=== PATIENT | male | born 1970 | race Caucasian/White ===

== ENCOUNTER 2020-08-04 11:15 | Emergency (ER) | payer MEDICARE, MEDICAID, SELFPAY ==
[2020-08-04] VITALS (27 sets, daily range): BP systolic 124–144; BP diastolic 78–87; PULSE 70–91; RESP 9–22; TEMP 37; O2SAT 93–98
--- NOTE | 2020-08-04 11:15 | RT.EKG_ITS ---
APPROVED REPORT Exam: Resting ECG Patient Location: E HR:90 bpm ECG Measurements Heart Rate 90 AXIS UT 162 P 9 QRSd 85 QRS 67 QT 331 T 20 QTc 405 Conclusion Sinus rhythm...normal P axis, V-rate 60- 99 ? old4 anterolateral infarct...Q I aVL V3-V6,I,aVL
--- NOTE | 2020-08-04 11:30 | DI.RAD_ITS ---
EXAM: XR CHEST 2V PA LATERAL CLINICAL HISTORY: chest pain TECHNIQUE: 2D digital imaging was performed. COMPARISON: No exams were available for comparison FINDINGS: MEDIASTINUM: Normal. HEART: Normal. PULMONARY VASCULATURE: Normal. LUNGS: Clear. PLEURAL SPACE: No pleural effusion or pneumothorax. BONE:Within normal limits for the patient's age. OTHER FINDINGS:Normal. IMPRESSION: No acute pulmonary findings. DATA REPOSITORY: RADIATION DOSE DELIVERED:
--- NOTE | 2020-08-04 11:38 | NUR.NOTE ---
Nursing Note: medication list obtained from [facility] as well as instructions for use.
[2020-08-04 11:48] LABS: Abs Immature Grans 0.06 10^3/uL (0.0-0.06); Absolute Basophil Count 0.07 10^3/uL (0.0-0.2); Absolute Eosinophil Count 0.14 10^3/uL (0.0-0.7); Absolute Lymphocyte Count 1.64 10^3/uL (1.2-3.4); Absolute Monocyte Count 0.54 10^3/uL (0.1-0.8); Absolute Neutrophil Count 8.32 10^3/uL (1.2-6.7); Basophils % 0.6; Eosinophils % 1.3; HCT 41.2 % (40.0-50.0); HGB 14.4 g/dL (13.5-17.5); Immature Grans % 0.6; Lymphocytes % 15.2; MCV 91.6 fL (80-95); MPV 10.7 fL (8.0-11.0); Neutrophils % 77.3; Nucleated RBC 0 %; Platelet Count 250 10^3/uL (130-400); RDW 12.5 % (11.8-14.1); RDW-SD 41.4 fL; WBC 10.77 10^3/uL (4.4-10.8)
[2020-08-04 12:03] LABS: ALT 21 U/L (16-63); AST 21 U/L (15-37); Albumin 3.8 g/dL (3.4-5.0); Alkaline Phosphatase 84 U/L (46-116); Anion Gap 5.4 mmol/L (3-11); BUN 7 mg/dL (7-18); Bilirubin, Total 0.5 mg/dL (0.2-1.0); CO2 30.6 mmol/L (21.0-32.0); CREATININE 0.81 mg/dL (0.70-1.30); Calcium 9.2 mg/dL (8.5-10.1); Chloride 104 mmol/L (98-107); Glucose 100 mg/dL (74-106); PTT Activated 24.3 sec (21.0-27.5); Prothrombin Time 10.5 sec (9.3-11.0); Sodium 140 mmol/L (136-145); Total Protein 7.3 g/dL (6.4-8.2); Troponin I < 0.05 ng/mL (<0.06)
--- NOTE | 2020-08-04 12:16 | ED.GENADUL_ITS ---
Discharge Plan Disposition Patient Disposition: HOME Condition: Stable Discharge Details Clinical Impression: Chest pain, Palpitations Primary Care Provider: Unknown,Unknown ED Provider: Keegan Lewis Home Meds and New Rx's Prescriptions: Continued omeprazole 20 mg Tablet,Disintegrat, Delay Rel 20 mg PO DAILY RF: 0 citalopram 40 mg Tablet 40 mg PO DAILY RF: 0 simvastatin 10 mg Tablet 10 mg PO DAILY RF: 0 aspirin [Aspirin Low Dose] 81 mg Tablet,Delayed Release (Dr/Ec) 81 mg PO DAILY RF: 0 nitroglycerin 0.4 mg Tablet, Sublingual 0.4 mg sublingual PRN PRNRF: 0 metoprolol succinate 25 mg Tablet Extended Release 24 Hr 12.5 mg PO BID RF: 0 albuterol sulfate [Ventolin HFA] 90 mcg/actuation Hfa Aerosol Inhaler 2 puff INHALATION Q4H PRN PRNRF: 0 diltiazem HCl 120 mg Tablet Extended Release 24 Hr 120 mg PO DAILY RF: 0 Restasis 0.05 % [place] 1 drp ophthalmic (eye) BID RF: 0 budesonide-formoterol [Symbicort] 160-4.5 mcg/actuation Hfa Aerosol Inhaler 2 puff INHALATION BID RF: 0 Discharge Instructions Instructions: Chest Pain (ED), Heart Palpitations (ED) Additional Instructions: At this time your work-up here in the ER is unremarkable for obvious emergent process. You were offered admission to our facility but have declined. Please watch for new or worsening symptoms and return to the ER for any concerns. We have set you up with a Holter monitor to hopefully capture your palpitations and give further insight to your ongoing symptoms. I strongly recommend that you contact your circus agent later today or tomorrow for prompt outpatient reevaluation. Discharge Data Discharge Date/Time-TO BE ENTERED AT DEPARTURE: 08/04/20 16:05 Medical Decision Making 50-year-old gentleman who reports history of MO 4 or 5 years ago, normal stress test 3 years ago, past medical history which includes hypercholesteremia, hypertension, GERD, COPD, current everyday smoker, presents to the ER for a 1 week history of intermittent fast heart rate which then leads to pain in his left chest which then goes to his upper left back shoulder and down his arm. He states that the pain comes and goes when the heart rate is up, as high into the 150s, nothing really makes it worse or better. Spontaneously resolves. Patient is visiting here from [place], unsure how long he plans to stay, does have a cardiology team at [facility]. Patient reports that his heart rate does not feel give racing now and his pain is decreasing from an 8 down to a 4. He has taken nitro over the past week which she reports did not make any change in his symptoms. Clinically he appears well, nontoxic. Differential includes but not excluded to ACS, atrial fibrillation, SVT, PE, electrolyte abnormality, dehydration, infectious process, etc. Patient took a single baby aspirin today, will give 3 additional baby aspirin initiate cardiac work-up including a D- dimer. I did discuss the case with Dr. Banks Laboratory values here in the ER are unremarkable for any obvious emergent process. White count is unremarkable. D-dimer 269, electrolytes unremarkable. Renal function normal, magnesium 2.0, troponin less than 0.05. Initial EKG read by Dr. Banks, see his official report. Upon reevaluation patient reports that his pain has resolved completely, he is feeling better and would like to be discharged. I did explain to him that I thought at minimum we should obtain a repeat troponin and EKG at 3 hours but given his age, comorbidities, admission was offered, and declined. Patient is of sound mind and able to make his own decisions. He does promise me that he will reach out to his cardiology team. He is willing to await a 3-hour troponin and EKG. Repeat troponin less than 0.05. Repeat EKG performed at 1515, please see official report by Dr. Banks. Sinus rhythm, ventricular of 72. J-point elevation lateral leads. Discussed repeat troponin and EKG with patient. We once again discussed observation admission, he once again declined. We discussed options, he is willing to allow us to set him up with a 14-day Holter monitor. He was encouraged to watch for new or worsening symptoms and return immediately to the ER, otherwise reach out to his primary care provider and circus agent later today or tomorrow for prompt outpatient reevaluation. The patient reports pain is 0 out of 10. He is currently asymptomatic. Patient did remain on the satellite project site monitor while here in the ER and never did go into an arrhythmia, tachycardia, A. fib, etc. Imaging Data Radiologic Study: Attestation: I personally reviewed and interpreted this imaging study as follows: Imaging: X-Ray Radiologist's impression: Chest x-ray negative Lab Data Lab results reviewed: Yes I reviewed the patient's lab results. Labs: Laboratory Tests Range/Units 08/04/20 08/04/20 08/04/20 11:30 11:30 11:30 WBC (4.4-10.8) 10^3/uL 10.77 RBC (4.36-5.78) 10^6/uL 4.50 Hgb (13.5-17.5) g/dL 14.4 Hct (40.0-50.0) % 41.2 MCV (80-95) fL 91.6 MCH (27.0-33.0) pg 32.0 MCHC (32.0-36.0) % 35.0 RDW (11.8-14.1) % 12.5 Plt Count (130-400) 10^3/uL 250 MPV (8.0-11.0) fL 10.7 Immature Gran % 0.6 Neutrophils % 77.3 Lymphocytes % 15.2 Monocytes % 5.0 Eosinophils % 1.3 Basophils % 0.6 Nucleated RBC % % 0 Absolute Neutrophils (1.2-6.7) 10^3/uL 8.32 H Absolute Lymphocytes (1.2-3.4) 10^3/uL 1.64 Absolute Monocytes (0.1-0.8) 10^3/uL 0.54 Absolute Eosinophils (0.0-0.7) 10^3/uL 0.14 Absolute Basophils (0.0-0.2) 10^3/uL 0.07 PT (9.3-11.0) sec 10.5 INR (0.9-1.1) 1.0 APTT (21.0-27.5) sec 24.3 D-Dimer (<500) ng/mlFEU 269 Sodium (136-145) mmol/L 140 Potassium (3.5-5.1) mmol/L 4.0 Chloride (98-107) mmol/L 104 Carbon Dioxide (21.0-32.0) mmol/L 30.6 Anion Gap (3-11) mmol/L 5.4 BUN (7-18) mg/dL 7 Creatinine (0.70-1.30) mg/dL 0.81 Estimated GFR/1.73 m2 (mL/min/1.73m2) >= 60.00 Glucose (74-106) mg/dL 100 Calcium (8.5-10.1) mg/dL 9.2 Magnesium (1.8-2.4) mg/dL 2.0 Total Bilirubin (0.2-1.0) mg/dL 0.5 AST (15-37) U/L 21 ALT (16-63) U/L 21 Alkaline Phosphatase (46-116) U/L 84 Troponin I (<0.06) ng/mL < 0.05 Total Protein (6.4-8.2) g/dL 7.3 Albumin (3.4-5.0) g/dL 3.8 Range/Units 08/04/20 14:42 WBC (4.4-10.8) 10^3/uL RBC (4.36-5.78) 10^6/uL Hgb (13.5-17.5) g/dL Hct (40.0-50.0) % MCV (80-95) fL MCH (27.0-33.0) pg MCHC (32.0-36.0) % RDW (11.8-14.1) % Plt Count (130-400) 10^3/uL MPV (8.0-11.0) fL Immature Gran % Neutrophils % Lymphocytes % Monocytes % Eosinophils % Basophils % Nucleated RBC % % Absolute Neutrophils (1.2-6.7) 10^3/uL Absolute Lymphocytes (1.2-3.4) 10^3/uL Absolute Monocytes (0.1-0.8) 10^3/uL Absolute Eosinophils (0.0-0.7) 10^3/uL Absolute Basophils (0.0-0.2) 10^3/uL PT (9.3-11.0) sec INR (0.9-1.1) APTT (21.0-27.5) sec D-Dimer (<500) ng/mlFEU Sodium (136-145) mmol/L Potassium (3.5-5.1) mmol/L Chloride (98-107) mmol/L Carbon Dioxide (21.0-32.0) mmol/L Anion Gap (3-11) mmol/L BUN (7-18) mg/dL Creatinine (0.70-1.30) mg/dL Estimated GFR/1.73 m2 (mL/min/1.73m2) Glucose (74-106) mg/dL Calcium (8.5-10.1) mg/dL Magnesium (1.8-2.4) mg/dL Total Bilirubin (0.2-1.0) mg/dL AST (15-37) U/L ALT (16-63) U/L Alkaline Phosphatase (46-116) U/L Troponin I (<0.06) ng/mL < 0.05 Total Protein (6.4-8.2) g/dL Albumin (3.4-5.0) g/dL ECG Data Attestation: I personally reviewed and interpreted this ECG (s) as follows: Prior ECG tracings: not available for review Interpretation: Please see official report by Dr. Banks. Sinus rhythm, ventricular rate of 90. No STEMI. Question of old anterolateral infarct HPI General Mode of arrival: ambulatory . Date/Time Provider Initiated Documentation: 08/04/20 11:20 . Limitations to Documentation: no limitations . Information obtained by: patient . HPI Narrative: This is a 50-year-old gentleman, visiting from [place], with a past medical history that includes GERD, hypertension, paroxysmal A. fib, COPD, hyperlipidemia, current smoker, presenting to the ER for evaluation of his heart racing. Patient reports that for 1 week his heart has been racing intermittently, nothing really makes this worse or better. Once his heart begins to race he begins to have what he describes as left-sided chest discomfort that goes down his arm on the left side. The pain also goes up into his upper back-left shoulder. He states that his heart rate has been as high as 150 over the past week. He has taken his nitro x 3 without any relief of his symptoms. He states that when his heart stops racing he no longer has any discomfort. Earlier the pain and rapid heart rate began around 9 AM, states it has been fairly consistent since then but upon arrival his heart is not racing and his pain is decreasing. He reports that his pain at maximum 8 out of 10, now is currently a 4 out of 10. Denies any recent illness or travel. Patient is unsure of what medications he takes although he does state that he takes them all as directed. He states he had a heart attack roughly 4 or 5 years ago, catheterized at that time without stent placement. He does see a circus agent at [facility], last stress test was roughly 3 years ago and everything was fine. He denies headache, fever, neck pain, shortness of breath, cough, abdominal pain, nausea, vomiting, change in bowel or bladder function, numbness, tingling, weakness, skin rash, pain or swelling in his legs. Related Data Home Medications Medication Instructions Recorded Confirmed Restasis 1 drp OPHTHALMIC (EYE) BID 08/04/20 08/04/20 albuterol sulfate [Ventolin HFA] 2 puff INHALATION Q4H PRN PRN 08/04/20 08/04/20 aspirin [Aspirin Low Dose] 81 mg PO DAILY 08/04/20 08/04/20 budesonide-formoterol [Symbicort] 2 puff INHALATION BID 08/04/20 08/04/20 citalopram 40 mg PO DAILY 08/04/20 08/04/20 diltiazem HCl 120 mg PO DAILY 08/04/20 08/04/20 metoprolol succinate 12.5 mg PO BID 08/04/20 08/04/20 nitroglycerin 0.4 mg SUBLINGUAL PRN PRN 08/04/20 08/04/20 omeprazole 20 mg PO DAILY 08/04/20 08/04/20 simvastatin 10 mg PO DAILY 08/04/20 08/04/20 Allergies Allergy/AdvReac Type Severity Reaction Status Date / Time sulfamethoxazole Allergy Severe Anaphylaxsi Unverified 08/04/20 11:24 [From Bactrim] s trimethoprim [From Bactrim] Allergy Severe Anaphylaxsi Unverified 08/04/20 11:24 s General Stated Complaint: Chest Pain POLA: 2 Review of Systems Constitutional Constitutional: Denies fatigue, Denies fever(s) and Denies headache(s) Eyes Eyes: Denies change in vision ENT Ears, Nose, Mouth, and Throat: Denies headache(s) and Denies neck pain Cardiovascular Cardiovascular: Reports chest pain, Reports rapid heart rate and Denies dyspnea Respiratory Respiratory: Denies cough and Denies dyspnea Gastrointestinal Gastrointestinal: Denies abdominal pain, Denies nausea and Denies vomiting Musculoskeletal Musculoskeletal: Reports back pain, Denies neck pain, Denies numbness and Denies tingling Integumentary/Breasts Skin/Breast: Denies rash Neurologic Neurologic: Denies headache(s), Denies numbness and Denies tingling Endocrine Endocrine: Denies fatigue [facility] Social History Smoking/Tobacco Use Status: Current every day Smoking risk assessment performed?: Yes Alcohol Intake: never Substance use type: does not use Do you feel safe at home: Yes Do you feel safe in your relationship?: Yes Exam Const General: cooperative, healthy appearing, comfortable and no acute distress Orientation: alert, awake and oriented x3 [facility] Head: normal to inspection, normocephalic and atraumatic Face and sinus: normal facial exam Mouth: moist mucous membranes Eyes General: appearance normal, both eyes and all related structures Conjunctivae: conjunctivae normal Sclera: sclerae normal Neck Neck: normal visual inspection, full ROM, trachea midline and supple Resp Effort & Inspection: normal respiratory effort and able to speak in complete sentences Auscultation: clear to auscultation bilaterally Cardio Rate: regular rate Rhythm: regular rhythm GI Palpation: soft, not firm, no guarding, no pulsatile masses and nontender Back/Spine/Pelvis Back: No back tenderness Skin General skin exam: no rashes or lesions noted Neuro General: patient alert, patient awake, patient oriented x3, moves all extremities and no focal motor deficits Cognition: normal cognition Speech: speech normal Gait: normal gait Motor: muscle tone normal throughout Sensory Exam: no sensory deficits noted Extrem General: normal to inspection, full ROM, capillary refill normal, no pedal edema and no calf tenderness Psych Appearance: grossly normal Mental Status: mental status grossly normal Course Vital Signs Vital signs: Vital Signs Temperature 37.0 C 08/04/20 11:20 Pulse 91 H 08/04/20 11:20 Respiratory Rate 20 08/04/20 11:20 Blood Pressure 144/87 H 08/04/20 11:20 Pulse Oximetry 98 08/04/20 11:20 Temperature 37.0 C 08/04/20 11:20 Temperature Source Skin 08/04/20 11:20 Pulse 91 H 08/04/20 11:20 Respiratory Rate 20 08/04/20 11:20 Respiratory Effort Non-Labored 08/04/20 11:22 Blood Pressure 144/87 H 08/04/20 11:20 Blood Pressure Position Supine 08/04/20 11:20 Pulse Oximetry 98 08/04/20 11:20 Oxygen Delivery Method Room Air 08/04/20 11:20 Oxygen Flow Rate 0 08/04/20 11:20 Pain Level 7 08/04/20 11:20 Lab/Test Results Lab/Test Results: Laboratory Tests Range/Units 08/04/20 08/04/20 11:30 11:30 WBC (4.4-10.8) 10^3/uL 10.77 RBC (4.36-5.78) 10^6/uL 4.50 Hgb (13.5-17.5) g/dL 14.4 Hct (40.0-50.0) % 41.2 MCV (80-95) fL 91.6 MCH (27.0-33.0) pg 32.0 MCHC (32.0-36.0) % 35.0 RDW (11.8-14.1) % 12.5 Plt Count (130-400) 10^3/uL 250 MPV (8.0-11.0) fL 10.7 Immature Gran % 0.6 Neutrophils % 77.3 Lymphocytes % 15.2 Monocytes % 5.0 Eosinophils % 1.3 Basophils % 0.6 Nucleated RBC % % 0 Absolute Neutrophils (1.2-6.7) 10^3/uL 8.32 H Absolute Lymphocytes (1.2-3.4) 10^3/uL 1.64 Absolute Monocytes (0.1-0.8) 10^3/uL 0.54 Absolute Eosinophils (0.0-0.7) 10^3/uL 0.14 Absolute Basophils (0.0-0.2) 10^3/uL 0.07 Sodium (136-145) mmol/L 140 Potassium (3.5-5.1) mmol/L 4.0 Chloride (98-107) mmol/L 104 Carbon Dioxide (21.0-32.0) mmol/L 30.6 Anion Gap (3-11) mmol/L 5.4 BUN (7-18) mg/dL 7 Creatinine (0.70-1.30) mg/dL 0.81 Estimated GFR/1.73 m2 (mL/min/1.73m2) >= 60.00 Glucose (74-106) mg/dL 100 Calcium (8.5-10.1) mg/dL 9.2 Magnesium (1.8-2.4) mg/dL 2.0 Total Bilirubin (0.2-1.0) mg/dL 0.5 AST (15-37) U/L 21 ALT (16-63) U/L 21 Alkaline Phosphatase (46-116) U/L 84 Troponin I (<0.06) ng/mL < 0.05 Total Protein (6.4-8.2) g/dL 7.3 Albumin (3.4-5.0) g/dL 3.8
[2020-08-04 12:22] LABS: D-Dimer 269 ng/mlFEU (<500)
[2020-08-04] MEDS: Normal Saline 1,000 ML 1000 ML IV (12:50)
[2020-08-04] MEDS: Aspirin 81 MG CHEW 243 MG CH (12:51)
--- NOTE | 2020-08-04 14:45 | RT.EKG_ITS ---
APPROVED REPORT Exam: Resting ECG Patient Location: E HR:72 bpm ECG Measurements Heart Rate 72 AXIS MD 188 P 19 QRSd 87 QRS 60 QT 365 T 25 QTc 401 Conclusion Sinus rhythm, normal P axis, J point elevation lateral leads
[2020-08-04 15:04] LABS: Troponin I < 0.05 ng/mL (<0.06)
[2020-08-04] MEDS: Normal Saline Flush 10 ML SYR IVP (15:06)
--- NOTE | 2020-09-01 12:36 | ZIOP_ITS ---
Date of service: 09/01/20 Time of Service: 12:36 14 Day Head Refrigerating Engineer Referring Provider:: kylie Indications:: Palpitations Note: This is a 14-day monitor ordered for indication of palpitations. ?The patient was in normal sinus rhythm for the majority of the recording with an average heart rate of 83 bpm. Minimum heart rate was 83 bpm. ?There were no episodes of ventricular tachycardia. ?There were rare PACs and rare PVCs. There was one episode of supraventricular tachycardia which lasted a total of 4 beats. ?There were no episodes of atrial fibrillation, no pauses greater than 3 seconds and no evidence of high degree heart block. ?Patient triggered events were associated with sinus rhythm and occasional PVC.
== END 2020-08-04 16:05 | disposition home or self-care (01) ==
PROVIDERS: Emergency Provider Physician Assistant
DX: R00.2 Palpitations (principal); R07.9 Chest pain, unspecified; I48.0 Paroxysmal atrial fibrillation; Z53.29 Procedure and treatment not carried out because of patient's decision for other reasons; I10 Essential (primary) hypertension; J44.9 Chronic obstructive pulmonary disease, unspecified; F17.210 Nicotine dependence, cigarettes, uncomplicated; E78.00 Pure hypercholesterolemia, unspecified
CPT/HCPCS: 0296T; 36415; 80053; 93005; 96360; 96361; 99285; 71046; 83735; 84484; 85025; 85379; 85610; 85730; 93010

== ENCOUNTER 2020-09-01 12:36 | Outpatient (CLI) | payer MEDICARE, MEDICAID, SELFPAY | END 2020-09-01 12:56 | PROVIDERS: Referring Provider Physician Assistant; Visit Provider Internal Medicine Cardiovascular Disease | DX: R00.2 Palpitations (principal); I47.1 Supraventricular tachycardia | CPT/HCPCS: 0298T ==

== ENCOUNTER 2021-02-09 13:04 | Emergency (ER) | payer MEDICARE, MEDICAID, SELFPAY ==
[2021-02-09] VITALS (13 sets, daily range): BP systolic 110–128; BP diastolic 58–72; PULSE 73–90; RESP 12–19; TEMP 36.1; O2SAT 93–98
--- NOTE | 2021-02-09 13:00 | RT.EKG_ITS ---
APPROVED REPORT Exam: Resting ECG Reason for Exam: chest pain Patient Location: E HR:87 bpm ECG Measurements Heart Rate 87 AXIS NV 177 P -5 QRSd 91 QRS 52 QT 347 T 24 QTc 418 Conclusion Sinus rhythm...normal P axis, V-rate 60- 99 Physician: No stemi, q waves in lead III, avf. No change from prior ekg on 08/04/20
--- NOTE | 2021-02-09 13:48 | ED.GENADUL_ITS ---
Discharge Plan Disposition Patient Disposition: HOME Condition: Stable Discharge Details Clinical Impression: Dermatitis, Chest pain Primary Care Provider: Unknown,Unknown ED Provider: Carola Cintron Home Meds and New Rx's Prescriptions: New dwyecfmk-wkyddflqz-SP 3.5-10,000-1 mg/mL-unit/mL-% drops,suspension 4 drp otic (ear) Q8H Qty: 10 RF: 0 Continued omeprazole 20 mg Tablet,Disintegrat, Delay Rel 20 mg PO DAILY RF: 0 citalopram 40 mg Tablet 40 mg PO DAILY RF: 0 simvastatin 10 mg Tablet 10 mg PO DAILY RF: 0 aspirin [Aspirin Low Dose] 81 mg Tablet,Delayed Release (Dr/Ec) 81 mg PO DAILY RF: 0 nitroglycerin 0.4 mg Tablet, Sublingual 0.4 mg sublingual PRN PRNRF: 0 metoprolol succinate 25 mg Tablet Extended Release 24 Hr 12.5 mg PO BID RF: 0 albuterol sulfate [Ventolin HFA] 90 mcg/actuation Hfa Aerosol Inhaler 2 puff INHALATION Q4H PRN PRNRF: 0 diltiazem HCl 120 mg Tablet Extended Release 24 Hr 120 mg PO DAILY RF: 0 Restasis 0.05 % Dropperette 1 drp ophthalmic (eye) BID RF: 0 budesonide-formoterol [Symbicort] 160-4.5 mcg/actuation Hfa Aerosol Inhaler 2 puff INHALATION BID RF: 0 Discharge Instructions Instructions: Chest Pain (ED), Dermatitis (ED) Additional Instructions: Please follow-up with your primary care physician and your fire prevention research engineer You are leaving against our medical recommendation, it is important that you follow-up with your care team tomorrow for outpatient reevaluation including your fire prevention research engineer You understand that you are at risk for having a heart attack or other more serious event with your chest pain Please use your eardrops as prescribed Please follow-up with your doctor regarding your ears and outpatient ear nose and throat referral should he have persistent complaints, do not attempt to place anything other than the eardrops in your ears Medical Decision Making Patient had a CTA that did not show acute abnormality, he does have what appears to be contact dermatitis in bilateral external auditory canals, I will treat him with topical antibiotic with hydrocortisone for this He has a negative troponin, his EKG does not show acute pathology, his diagnostic labs are reassuring, given patient's medical history and comorbidities, is recommended the patient stay for at least a second troponin and admission Patient has declined admission, he is alert, oriented, of decisional capacity and is aware of the risk associated with leaving including myocardial infarction and even He will be treated for his ears which is the reason why he states he came to the emergency room, however he is encouraged to see his primary care physician tomorrow and follow-up with his fire prevention research engineer tomorrow additionally I also spoke with his niece who brought the patient to the emergency room and let her know my concerns regarding his health history and recommendations for further evaluation He is discharged home in stable condition at time of my evaluation and has maintained capacity to me decision WBC count rechecked by primary care physician Differential Diagnosis Differential Diagnosis: Contact dermatitis, carotid dissection, carotid bruit unstable angina Medical Records Medical records reviewed: Yes I reviewed the patient's medical records. Lab Data Lab results reviewed: Yes I reviewed the patient's lab results. HPI General Date/Time Provider Initiated Documentation: 02/09/21 13:16 . Limitations to Documentation: no limitations . Information obtained by: patient . HPI Narrative: This 50-year-old male with history of coronary artery disease, hypertension, hyperlipidemia presents with report of ear pain. He states that the pain been going on for 3 to 4 months and occasionally when the pain is at its peak it makes him feel lightheaded and possibly dizzy causes him to fall to the ground. He denies any headache or vision change. He states the pain is constant. He denies any nausea or vomiting or chest pain associated with this pain. He does state driving into the hospital she did have an episode of chest pain. He states that he does have a history of angina, he takes nitroglycerin for it and this pain occurred while he was driving in. He was not exerting himself. He states typically he has chest pain with exertion. He did not take his nitroglycerin. He states the pain lasted 2 to 3 minutes and resolved completely. He denies any current discomfort in the chest. I have asked cardiac catheterization was years ago. He is unsure if sure his recent stress test. Atrial fibrillation, confusion shortness of this time. He states the ear pain is worse than when he places a Q-tip into the affected canal. Related Data Home Medications Medication Instructions Recorded Confirmed Restasis 1 drp OPHTHALMIC (EYE) BID 08/04/20 02/09/21 albuterol sulfate [Ventolin HFA] 2 puff INHALATION Q4H PRN PRN 08/04/20 02/09/21 aspirin [Aspirin Low Dose] 81 mg PO DAILY 08/04/20 02/09/21 budesonide-formoterol [Symbicort] 2 puff INHALATION BID 08/04/20 02/09/21 citalopram 40 mg PO DAILY 08/04/20 02/09/21 diltiazem HCl 120 mg PO DAILY 08/04/20 02/09/21 metoprolol succinate 12.5 mg PO BID 08/04/20 02/09/21 nitroglycerin 0.4 mg SUBLINGUAL PRN PRN 08/04/20 02/09/21 omeprazole 20 mg PO DAILY 08/04/20 02/09/21 simvastatin 10 mg PO DAILY 08/04/20 02/09/21 xgrmoqle-gsgqcjufo-YY 4 drp OTIC (EAR) Q8H #10 ml 02/09/21 Previous Rx's Medication Instructions Recorded wjvvjmeb-sxeeexrpz-FR 4 drp OTIC (EAR) Q8H #10 ml 02/09/21 Allergies Allergy/AdvReac Type Severity Reaction Status Date / Time sulfamethoxazole Allergy Severe Anaphylaxsi Unverified 02/09/21 13:11 [From Bactrim] s trimethoprim [From Bactrim] Allergy Severe Anaphylaxsi Unverified 02/09/21 13:11 s General Stated Complaint: Chest Pain POLA: 2 Review of Systems Narrative: Review of systems negative x7 aside from where in the [facility] Social History Smoking/Tobacco Use Status: Current every day Smoking risk assessment performed?: Yes Alcohol Intake: never Drug use: Occasionally Substance use type: marijuana Do you feel safe at home: Yes Do you feel safe in your relationship?: Yes Exam Const General: cooperative, comfortable and no acute distress Eyes Other: External auditory canal with excoriations bilaterally, tenderness with palpation, no purulent drainage noted behind TM, no evidence of cellulitis, no mastoid tenderness, no drainage appreciated Neck Other: No carotid bruit Chest Chest: normal inspection of the chest Resp Effort & Inspection: normal respiratory effort Auscultation: clear to auscultation bilaterally Cardio Rate: regular rate Rhythm: regular rhythm GI Inspection: normal to inspection Other: No abdominal bruit or pulsatile mass, no CVA tenderness Neuro General: patient alert and patient oriented x3 Cranial Nerves: CN's II-XI intact bilaterally Speech: speech normal Sensory Exam: no sensory deficits noted Coordination: vrfler-xd-tqyb test normal Extrem Other: No calf tenderness or swelling appreciated on exam Distal pulses intact Course Vital Signs Vital signs: Vital Signs Temperature 36.1 C L 02/09/21 13:09 Pulse 90 02/09/21 13:09 Respiratory Rate 12 02/09/21 13:09 Blood Pressure 128/72 02/09/21 13:09 Pulse Oximetry 98 02/09/21 13:09 Temperature 36.1 C L 02/09/21 13:09 Temperature Source Skin 02/09/21 13:09 Pulse 90 02/09/21 13:09 Pulse 89 02/09/21 13:30 Respiratory Rate 14 02/09/21 13:30 Respiratory Effort Non-Labored 02/09/21 13:16 Respiratory Depth Normal 02/09/21 13:16 Respiratory Pattern Normal 02/09/21 13:16 Blood Pressure 128/72 02/09/21 13:09 Blood Pressure Position Sitting 02/09/21 13:09 Pulse Oximetry 97 02/09/21 13:30 Oxygen Delivery Method Room Air 02/09/21 13:09 Oxygen Flow Rate 0 02/09/21 13:09 Pain Level 0 02/09/21 13:09
[2021-02-09 13:52] LABS: Abs Immature Grans 0.13 10^3/uL (0.0-0.06); Absolute Eosinophil Count 0.16 10^3/uL (0.0-0.7); Basophils % 0.4; HCT 40.3 % (40.0-50.0); HGB 13.8 g/dL (13.5-17.5); Immature Grans % 0.8; MCH 32.2 pg (27.0-33.0); MCHC 34.2 % (32.0-36.0); MCV 94.2 fL (80-95); MPV 10.5 fL (8.0-11.0); Monocytes % 4.3; Neutrophils % 83.5; Nucleated RBC 0 %; Platelet Count 233 10^3/uL (130-400); RBC 4.28 10^6/uL (4.36-5.78); RDW 12.5 % (11.8-14.1); RDW-SD 43.2 fL; WBC 15.94 10^3/uL (4.4-10.8)
[2021-02-09 13:54] LABS: Absolute Basophil Count 0.06 10^3/uL (0.0-0.2); Absolute Lymphocyte Count 1.59 10^3/uL (1.2-3.4); Absolute Monocyte Count 0.69 10^3/uL (0.1-0.8); Absolute Neutrophil Count 13.31 10^3/uL (1.2-6.7)
--- NOTE | 2021-02-09 14:06 | DI.CT_ITS ---
Exam(s) CT BRAIN NECK CTA EXAM: CT BRAIN NECK CTA CLINICAL HISTORY: dizziness, ear pain., fx falls. TECHNIQUE: Imaging Protocol: Axial CT angiography was performed with multi-slice acquisition and mu lti-planar and/or 3D reconstructions. CONTRAST MATERIAL: Intravenous: Omnipaque 350 Contrast volume:100 cc COMPARISON: CR XR CHEST 2V PA LATERAL from 08/04/2020 FINDINGS: CT Head W/O W : Ventricles and Extra axial spaces: Normal in size and morphology for the patient's age. Hemorrhage: None. Cerebral parenchyma: Normal. Midline shift: None. Brainstem/Cerebellum: Normal. Calvarium: Normal. Visualized Paranasal sinuses/Mastoids: Clear. Soft Tissues: Unremarkable. No abnormal enhancement. CTA Brain W: Internal Carotid Arteries: Petrous: Normal. Cavernous: Normal. Cerebral: Normal. Middle Cerebral Arteries: Right: No aneurysm, occlusion or significant stenosis. Left: No aneurysm, occlusion or significant stenosis. Anterior Cerebral Arteries: Right: No aneurysm, occlusion or significant stenosis. Left: No aneurysm, occlusion or significant stenosis. Posterior cerebral Arteries: Right: No aneurysm, occlusion or significant stenosis. Left: No aneurysm, occlusion or significant stenosis. Vertebral Arteries: Right: No aneurysm, occlusion or significant stenosis. Left: No aneurysm, occlusion or significant stenosis. Basilar Artery: No aneurysm, occlusion or significant stenosis. CTA Neck W: Common Carotid: No significant plaque. Right: No aneurysm, occlusion or significant stenosis. Left: No aneurysm, occlusion or significant stenosis. External Carotid: No significant plaque. Right: No aneurysm, occlusion or significant stenosis. Left: No aneurysm, occlusion or significant stenosis. Internal Carotid: No significant plaque. Right: No aneurysm, occlusion or significant stenosis. Left: No aneurysm, occlusion or significant stenosis. Vertebral Artery: Right: No aneurysm, occlusion or significant stenosis. Left: No aneurysm, occlusion or significant stenosis. Lung Apices: Centrilobular and paraseptal emphysema. Bones: Mild degenerative disc changes greatest at C5-6. Soft Tissues: Normal. IMPRESSION: 1. Normal CTA examination of the [place]. 2. Unremarkable CT Head. 3. Normal CTA examination of the neck. RADIATION DOSE DELIVERED: 2,031.55mGy.cm Total DLP DATA REPOSITORY: All CT scans at this facility are submitted to the National Radiology Data Registry (NRDR) Dose Index Registry (DIR) with the [employer] (ACR). RADIATION OPTIMIZATION: All CT scans at this facility use at least one of these dose optimization te chniques: automated exposure control; mA and/or kV adjustment per patient size (includes targeted exa ms where dose is matched to clinical indication); or iterative reconstruction.
[2021-02-09 14:14] LABS: ALT 30 U/L (16-63); AST 20 U/L (15-37); Albumin 3.7 g/dL (3.4-5.0); Alkaline Phosphatase 85 U/L (46-116); Anion Gap 8.1 mmol/L (3-11); BUN 7 mg/dL (7-18); Bilirubin, Total 0.5 mg/dL (0.2-1.0); CO2 28.9 mmol/L (21.0-32.0); CREATININE 0.9 mg/dL (0.70-1.30); Calcium 8.9 mg/dL (8.5-10.1); Chloride 104 mmol/L (98-107); Glucose 145 mg/dL (74-106); Magnesium 1.8 mg/dL (1.8-2.4); Sodium 141 mmol/L (136-145); Total Protein 7.3 g/dL (6.4-8.2)
[2021-02-09 14:17] LABS: Troponin I < 0.05 ng/mL (<0.06)
[2021-02-09] MEDS: Normal Saline - Diluent 50 ML VIAL IV (14:53)
[2021-02-09] MEDS: Omnipaque 350 MG/ML 100 ML BTL IJ (14:54)
== END 2021-02-09 15:51 | disposition home or self-care (01) ==
PROVIDERS: Emergency Provider Physician Assistant
DX: H92.03 Otalgia, bilateral (principal); R42 Dizziness and giddiness; L25.9 Unspecified contact dermatitis, unspecified cause; R07.89 Other chest pain
CPT/HCPCS: 36415; 70496; 70498; 80053; 93005; 99285; 83735; 84484; 85025; 93010; 99284; J3490

== ENCOUNTER 2022-06-14 18:23 | Emergency (ER) | payer MEDICARE, MEDICAID, SELFPAY ==
[2022-06-14 18:27] VITALS: BP 142/75; PULSE 82; RESP 16; TEMP 36.8; O2SAT 98
--- NOTE | 2022-06-14 19:19 | ED.GENADUL_ITS ---
Discharge Plan Disposition Patient Disposition: HOME Condition: Stable Discharge Details Clinical Impression: Pain and swelling of left lower leg Primary Care Provider: Unknown,Unknown ED Provider: Urmila Arias Home Meds and New Rx's Prescriptions: Continued omeprazole 20 mg Tablet,Disintegrat, Delay Rel 20 mg PO DAILY citalopram 40 mg Tablet 40 mg PO DAILY simvastatin 10 mg Tablet 10 mg PO DAILY aspirin [Colleen Low Dose Aspirin] 81 mg Tablet,Delayed Release (Dr/Ec) 81 mg PO DAILY nitroglycerin 0.4 mg Tablet, Sublingual 0.4 mg sublingual PRN PRN metoprolol succinate 25 mg Tablet Extended Release 24 Hr 12.5 mg PO BID albuterol sulfate [Ventolin HFA] 90 mcg/actuation Hfa Aerosol Inhaler 2 puff INHALATION Q4H PRN PRN diltiazem HCl 120 mg Tablet Extended Release 24 Hr 120 mg PO DAILY cyclosporine [Restasis] 0.05 % Dropperette 1 drp ophthalmic (eye) BID budesonide-formoterol [Symbicort] 160-4.5 mcg/actuation Hfa Aerosol Inhaler 2 puff INHALATION BID mxvlvtii-ivxfsrvbw-SL 3.5-10,000-1 mg/mL-unit/mL-% drops,suspension 4 drp otic (ear) Q8H Qty: 10 0RF mirtazapine 7.5 mg tablet 7.5 mg PO DAILY Discharge Instructions Instructions: Leg Pain (ED) Additional Instructions: Rest, ice and elevate your left leg as much as possible. An order for an outpatient leg ultrasound has been placed. You will be contacted by the radiology department for scheduling of the test and will follow up in the emergency department for results. Follow-up with your primary care doctor in 1 week. Return to the emergency department with any worsening or new concerning symptoms. Discharge Data Discharge Date/Time-TO BE ENTERED AT DEPARTURE: 06/14/22 19:44 Discharge Physician: Urmila Arias Medical Decision Making 52-year-old male with a history of hypertension, hyperlipidemia and atrial fibrillation presents with left leg pain and swelling since yesterday. Vitals within normal limits. Patient has an approximate 2x2cm localized area of tenderness and minimal edema noted to the left proximal anterior lateral calf. He has no significant posterior calf tenderness. He is neurovascularly intact without edema or erythema of the leg. Suspicion is low for DVT. Possibilities include lipoma or superficial thrombophlebitis. Patient has no complaints of acute chest pain or shortness of breath. Patient states he is already taking Coumadin for his atrial fibrillation but I do not see this on his medication list. Discussed with patient that my suspicion for DVT is low but will order an outpatient leg ultrasound to be hopefully done tomorrow. He is adamant that he is already taking Coumadin so we will hold on anticoagulation at this time but discussed that as my suspicion is low for DVT would not start anticoagulation anyway. Advised to return to the ED for results. Medical Records Medical records reviewed: Yes I reviewed the patient's medical records. HPI General Mode of arrival: ambulatory . Date/Time Provider Initiated Documentation: 06/14/22 18:30 . Limitations to Documentation: no limitations . Information obtained by: patient . HPI Narrative: Patient is a 52-year-old with a history of hypertension, hyperlipidemia, atrial fibrillation who presents for an area of left leg pain and swelling since yester day. Patient denies any known injury, fever, current chest pain, shortness of breath. Patient states due to his medical history he is prone to blood clots, strokes and heart attacks but states he has not had a DVT before. Related Data Home Medications Medication Instructions Recorded Confirmed albuterol sulfate 90 mcg/actuation 2 puff inhalation Q4H PRN PRN 08/04/20 06/14/22 aerosol inhaler (Ventolin HFA) aspirin 81 mg tablet,delayed 81 mg PO DAILY 08/04/20 06/14/22 release (Colleen Low Dose Aspirin) budesonide-formoterol HFA 160 2 puff inhalation BID 08/04/20 06/14/22 mcg-4.5 mcg/actuation aerosol inhaler (Symbicort) citalopram 40 mg tablet 40 mg PO DAILY 08/04/20 06/14/22 cyclosporine 0.05 % eye drops in a 1 drp ophthalmic (eye) BID 08/04/20 06/14/22 dropperette (Restasis) diltiazem HCl 120 mg 120 mg PO DAILY 08/04/20 06/14/22 tablet,extended release 24 hr metoprolol succinate 25 mg 12.5 mg PO BID 08/04/20 06/14/22 tablet,extended release 24 hr nitroglycerin 0.4 mg sublingual 0.4 mg sublingual PRN PRN 08/04/20 06/14/22 tablet omeprazole 20 mg delayed 20 mg PO DAILY 08/04/20 06/14/22 release,disintegrating tablet simvastatin 10 mg tablet 10 mg PO DAILY 08/04/20 06/14/22 byyoxcgp-ohplovzyd-uvcwvexyt 3.5 4 drp otic (ear) Q8H #10 mL 02/09/21 06/14/22 mg-10,000 unit/mL-1 % ear drops,susp mirtazapine 7.5 mg tablet 7.5 mg PO DAILY 06/14/22 06/14/22 Previous Rx's Medication Instructions Recorded wrghksxf-encsevuxw-dxwsvnhrs 3.5 4 drp otic (ear) Q8H #10 mL 02/09/21 mg-10,000 unit/mL-1 % ear drops,susp Allergies Allergy/AdvReac Type Severity Reaction Status Date / Time sulfamethoxazole Allergy Severe Anaphylaxsi Unverified 06/14/22 18:32 [From Bactrim] s trimethoprim [From Bactrim] Allergy Severe Anaphylaxsi Unverified 06/14/22 18:32 s General Stated Complaint: GenMedical POLA: 3 Review of Systems All systems reviewed & are unremarkable except as noted in HPI and below Constitutional Constitutional: Reports as per HPI, Denies chills and Denies fever(s) Eyes Eyes: Denies blurry vision ENT Ears, Nose, Mouth, and Throat: Denies dizziness, Denies sore throat and Denies throat swelling Cardiovascular Cardiovascular: Denies chest pain and Denies dyspnea Respiratory Respiratory: Denies cough and Denies dyspnea Gastrointestinal Gastrointestinal: Denies abdominal pain, Denies diarrhea and Denies vomiting Genitourinary Genitourinary: Denies hematuria and Denies dysuria Musculoskeletal Musculoskeletal: Denies back pain and Denies numbness Integumentary/Breasts Skin/Breast: Denies lesions and Denies rash Neurologic Neurologic: Denies dizziness, Denies localized weakness and Denies numbness Allergic/Immunologic Allergic/Immunologic: Denies throat swelling PFSH All Active Problems (Updated 06/14/22 @ 19:46 by Urmila Arias DO) Dermatitis (Acute) Chest pain (Acute) Pain and swelling of left lower leg (Acute) Medical History (Updated 06/14/22 @ 19:46 by Urmila Arias DO) Atrial fibrillation HTN (hypertension) Hx of hyperlipidemia Surgical History (Updated 06/14/22 @ 19:46 by Urmila Arias DO) Hx of lithotripsy Social History Smoking/Tobacco Use Status: Current every day Smoking risk assessment performed?: Yes Alcohol Intake: never Drug use: Occasionally Substance use type: does not use Do you feel safe at home: Yes Do you feel safe in your relationship?: Yes Exam Const General: cooperative and no acute distress Orientation: alert, awake and oriented x3 HENMT Head: normal to inspection Mouth: oral mucosae normal Eyes General: appearance normal, both eyes and all related structures Neck Neck: normal visual inspection Resp Effort & Inspection: normal respiratory effort and able to speak in complete sentences Auscultation: clear to auscultation bilaterally Cardio Rate: regular rate Rhythm: regular rhythm Skin General skin exam: no rashes or lesions noted Neuro General: patient alert, patient awake and patient oriented x3 Motor: muscle tone normal throughout Extrem Ankle/foot/toe images: 1. A 2 x 2 centimeter area of mild edema and tenderness noted to the left lateral proximal leg. There is no erythema, ecchymosis, crepitus, rash or lesions. Other: Left DP and PT pulses intact. Knee, ankle and foot normal to inspection. Psych Appearance: grossly normal Affect: normal affect Course Vital Signs Vital signs: Vital Signs Temperature 98.2 F 06/14/22 18:27 Pulse 82 06/14/22 18:27 Respiratory Rate 16 06/14/22 18:27 Blood Pressure 142/75 H 06/14/22 18:27 Pulse Oximetry 98 06/14/22 18:27 Temperature 98.2 F 06/14/22 18:27 Pulse 82 06/14/22 18:27 Respiratory Rate 16 06/14/22 18:27 Respiratory Effort 06/14/22 18:35 Blood Pressure 142/75 H 06/14/22 18:27 Pulse Oximetry 98 06/14/22 18:27
--- NOTE | 2022-06-14 19:23 | NUR.NOTE ---
Ultrasound requisition faxed to DI for L lower extremity ultrasound to be done [place], will f/u in emergency dept. copy of req given to patient instructing him to call DI to make appt.Nursing Note:
[2022-06-14 19:45] VITALS: RESP 18
== END 2022-06-14 19:44 | disposition home or self-care (01) ==
PROVIDERS: Emergency Provider Physician Assistant
DX: M79.662 Pain in left lower leg (principal); R22.42 Localized swelling, mass and lump, left lower limb; I10 Essential (primary) hypertension; I48.91 Unspecified atrial fibrillation; F17.210 Nicotine dependence, cigarettes, uncomplicated; Z79.01 Long term (current) use of anticoagulants
CPT/HCPCS: 99281; 99282

== ENCOUNTER → 2022-06-16 03:13 | Outpatient (CLI) | payer MEDICARE, MEDICAID, SELFPAY ==
--- NOTE | 2022-06-16 | DI.US_ITS ---
Exam(s) US LOWER EXTREMITY VENOUS LT EXAM: US LOWER EXTREMITY VENOUS LT CLINICAL HISTORY: LT LEG PAIN SWELLIN, R/O DVT. TECHNIQUE: Lower extremity venous ultrasound performed using grayscale, color-flow, and spectral Do ppler analysis. COMPARISON: No exams were available for comparison FINDINGS: The common femoral, femoral and popliteal veins demonstrate normal compressibility, augmentation, and color Doppler. The posterior tibial veins are patent. No saphenous vein thrombosis or other superfi cial venous thrombosis is seen. No hematoma or Ram's cyst is seen. IMPRESSION: Negative lower extremity ultrasound. No evidence of DVT. DATA REPOSITORY:
== END ==
PROVIDERS: Visit Provider Physician Assistant
DX: M79.605 Pain in left leg (principal)
CPT/HCPCS: 93971

== ENCOUNTER 2022-08-20 16:00 | Emergency (ER) | payer MEDICARE, MEDICAID, SELFPAY ==
[2022-08-20 16:12] VITALS: BP 113/68; PULSE 68; RESP 18; TEMP 36.9; O2SAT 96
--- NOTE | 2022-08-20 18:30 | DI.CT_ITS ---
Exam(s) CT HEAD WO EXAM: CT HEAD WO CLINICAL HISTORY: hit back of head, tender occiput. TECHNIQUE: Imaging Protocol: Axial computed tomography images with coronal and sagittal reformatted images were created and reviewed COMPARISON: CT CT BRAIN NECK CTA from 02/09/2021 FINDINGS: Ventricles and Extra axial spaces: Normal in size and morphology for the patient's age. Hemorrhage: None. Cerebral parenchyma: Normal. Midline shift: None. Brainstem/Cerebellum: Normal. Calvarium: Normal. Visualized Paranasal sinuses/Mastoids: Clear. Soft Tissues: Unremarkable. IMPRESSION: No acute intracranial process. RADIATION DOSE DELIVERED: 722.31mGy.cm Total DLP DATA REPOSITORY: All CT scans at this facility are submitted to the National Radiology Data Registry (NRDR) Dose Index Registry (DIR) with the [employer] (ACR). RADIATION OPTIMIZATION: All CT scans at this facility use at least one of these dose optimization te chniques: automated exposure control; mA and/or kV adjustment per patient size (includes targeted exa ms where dose is matched to clinical indication); or iterative reconstruction.
--- NOTE | 2022-08-20 18:37 | ED.GENADUL_ITS ---
Discharge Plan Disposition Patient Disposition: Home Condition: Stable Discharge Details Clinical Impression: Head injury, Concussion Primary Care Provider: Unknown,Unknown ED Provider: Zachariah Banuelos Meds and New Rx's Prescriptions: No Action omeprazole 20 mg Tablet,Disintegrat, Delay Rel 20 mg PO DAILY citalopram 40 mg Tablet 40 mg PO DAILY simvastatin 10 mg Tablet 10 mg PO DAILY aspirin [Colleen Low Dose Aspirin] 81 mg Tablet,Delayed Release (Dr/Ec) 81 mg PO DAILY nitroglycerin 0.4 mg Tablet, Sublingual 0.4 mg sublingual PRN PRN metoprolol succinate 25 mg Tablet Extended Release 24 Hr 12.5 mg PO BID albuterol sulfate [Ventolin HFA] 90 mcg/actuation Hfa Aerosol Inhaler 2 puff INHALATION Q4H PRN PRN diltiazem HCl 120 mg Tablet Extended Release 24 Hr 120 mg PO DAILY cyclosporine [Restasis] 0.05 % Dropperette 1 drp ophthalmic (eye) BID budesonide-formoterol [Symbicort] 160-4.5 mcg/actuation Hfa Aerosol Inhaler 2 puff INHALATION BID [id number] 3.5-10,000-1 mg/mL-unit/mL-% drops,suspension 4 drp otic (ear) Q8H Qty: 10 0RF mirtazapine 7.5 mg tablet 7.5 mg PO DAILY Discharge Instructions Instructions: Concussion (ED) Additional Instructions: Med reconciliation could not be performed today. Please take your medication as prescribed. Please contact your primary care physician to arrange follow-up. Return to the ER immediately for any worsening or new concerning symptoms. Discharge Data Discharge Date/Time-TO BE ENTERED AT DEPARTURE: 08/20/22 20:09 Medical Decision Making 1840 --52-year-old male here with severe occipital cephalgia after striking the back of his head earlier today. Consider acute life-threatening intracranial traumatic hemorrhage and skull fracture. Plan to obtain CT of the head. -- CT head was interpreted by radiology: No acute intracranial hemorrhage, mass effect or midline shift. Results were discussed with the patient. Usual customary discharge instructions were reviewed. Sign Out No HPI General Mode of arrival: ambulatory . Date/Time Provider Initiated Documentation: 08/20/22 16:42 . Limitations to Documentation: no limitations . Information obtained by: patient . HPI Narrative: 52-year-old male he after head injury. Patient notes he struck the back of his head on the concrete wall accidentally around 2 PM. Patient notes he had brief loss of vision with the trauma. He notes significant persistent pain in his occipital area since the injury. Any light touch to the back of his head causes exquisite pain. He has no associated visual changes now. No numbness or tingling. No nausea or vomiting. Related Data Home Medications Medication Instructions Recorded Confirmed albuterol sulfate 90 mcg/actuation 2 puff inhalation Q4H PRN PRN 08/04/20 08/20/22 aerosol inhaler (Ventolin HFA) aspirin 81 mg tablet,delayed 81 mg PO DAILY 08/04/20 08/20/22 release (Colleen Low Dose Aspirin) budesonide-formoterol HFA 160 2 puff inhalation BID 08/04/20 08/20/22 mcg-4.5 mcg/actuation aerosol inhaler (Symbicort) citalopram 40 mg tablet 40 mg PO DAILY 08/04/20 08/20/22 cyclosporine 0.05 % eye drops in a 1 drp ophthalmic (eye) BID 08/04/20 08/20/22 dropperette (Restasis) diltiazem HCl 120 mg 120 mg PO DAILY 08/04/20 08/20/22 tablet,extended release 24 hr metoprolol succinate 25 mg 12.5 mg PO BID 08/04/20 06/14/22 tablet,extended release 24 hr nitroglycerin 0.4 mg sublingual 0.4 mg sublingual PRN PRN 08/04/20 08/20/22 tablet omeprazole 20 mg delayed 20 mg PO DAILY 08/04/20 08/20/22 release,disintegrating tablet simvastatin 10 mg tablet 10 mg PO DAILY 08/04/20 08/20/22 [id number] 3.5 4 drp otic (ear) Q8H #10 mL 02/09/21 06/14/22 mg-10,000 unit/mL-1 % ear drops,susp mirtazapine 7.5 mg tablet 7.5 mg PO DAILY 06/14/22 08/20/22 Previous Rx's Medication Instructions Recorded yhyefstn-icirzijgl-qzjjpxqqo 3.5 4 drp otic (ear) Q8H #10 mL 02/09/21 mg-10,000 unit/mL-1 % ear drops,susp Allergies Allergy/AdvReac Type Severity Reaction Status Date / Time sulfamethoxazole Allergy Severe Anaphylaxsi Unverified 08/20/22 16:15 [From Bactrim] s trimethoprim [From Bactrim] Allergy Severe Anaphylaxsi Unverified 08/20/22 16:15 s General Stated Complaint: HeadInjury POLA: 3 Review of Systems All systems reviewed & are unremarkable except as noted in HPI and below Constitutional Constitutional: Denies fever(s) Neurologic Neurologic: Reports as per HPI and Denies confusion Psychiatric Psychiatric: Denies confusion PFSH All Active Problems (Updated 08/20/22 @ 19:58 by Zachariah Banuelos MD) Head injury (Acute) Concussion (Acute) Dermatitis (Acute) Chest pain (Acute) Medical History Atrial fibrillation HTN (hypertension) Hx of hyperlipidemia Surgical History Hx of lithotripsy Social History Smoking/Tobacco Use Status: Current every day Tobacco Type: cigarettes Smoking risk assessment performed?: Yes Alcohol Intake: never Drug use: Occasionally Substance use type: does not use Do you feel safe at home: Yes Do you feel safe in your relationship?: Yes Exam Const General: cooperative and no acute distress HENMT Head: normocephalic, no Danielson's sign, no hematomas, no raccoon eyes and scalp tenderness (occipital) Mouth: moist mucous membranes Eyes EOM: EOM intact bilaterally Neck Neck: trachea midline and supple Resp Auscultation: clear to auscultation bilaterally, no rales, no rhonchi and no wheezes Cardio Rate: regular rate and not tachycardic Rhythm: regular rhythm Neuro General: patient alert, patient awake, patient oriented x3 and tone normal Cranial Nerves: CN's II-XI intact bilaterally Cognition: normal cognition Speech: speech normal Motor: strength 5/5 throughout Sensory Exam: no sensory deficits noted Course Vital Signs Vital signs: Vital Signs Temperature 36.9 C 08/20/22 16:12 Pulse 68 08/20/22 16:12 Respiratory Rate 18 08/20/22 16:12 Blood Pressure 113/68 08/20/22 16:12 Pulse Oximetry 96 08/20/22 16:12 Temperature 36.9 C 08/20/22 16:12 Temperature Source Temporal Artery Scan 08/20/22 16:12 Pulse 68 08/20/22 16:12 Respiratory Rate 18 08/20/22 16:12 Respiratory Effort Non-Labored 08/20/22 16:17 Blood Pressure 113/68 08/20/22 16:12 Blood Pressure Position Sitting 08/20/22 16:12 Pulse Oximetry 96 08/20/22 16:12 Oxygen Delivery Method Room Air 08/20/22 16:12 Oxygen Flow Rate 0 08/20/22 16:12
--- NOTE | 2022-08-20 19:38 | DI.VRAD_ITS ---
PROCEDURE INFORMATION: Exam: CT Head Without Contrast Exam date and time: 08/20/2022 7:02 PM Age: 52 years old Clinical indication: Hit back of head, tender occiput TECHNIQUE: Imaging protocol: Computed tomography of the head without contrast. COMPARISON: CT BRAIN NECK CTA 02/09/2021 1:56 PM FINDINGS: Brain: There is no acute intracranial hemorrhage, mass effect or midline shift. There is no large acute territorial cerebral infarct. Cerebral ventricles: No ventriculomegaly. Paranasal sinuses: Visualized sinuses are unremarkable. No fluid levels. Mastoid air cells: Visualized mastoid air cells are well aerated. Bones/joints: Unremarkable. No acute fracture. Soft tissues: Unremarkable. IMPRESSION: No acute intracranial hemorrhage, mass effect or midline shift. Dictated and Authenticated by: Ashleigh Arceo MD. Ordering:ADORE Soni MD
== END 2022-08-20 20:09 | disposition home or self-care (01) ==
PROVIDERS: Emergency Provider Student in an Organized Health Care Education/Training Program
DX: S06.0X0A Concussion without loss of consciousness, initial encounter (principal); I10 Essential (primary) hypertension; I48.91 Unspecified atrial fibrillation; E78.5 Hyperlipidemia, unspecified; F17.210 Nicotine dependence, cigarettes, uncomplicated; Z79.82 Long term (current) use of aspirin; W22.01XA Walked into wall, initial encounter
CPT/HCPCS: 99284; 70450; 99282

== ENCOUNTER 2022-10-27 07:24 | Emergency (ER) | payer MEDICARE, MEDICAID, SELFPAY ==
[2022-10-27] VITALS (39 sets, daily range): BP systolic 114–159; BP diastolic 75–83; PULSE 63–90; RESP 8–40; TEMP 37.9; O2SAT 93–96
--- NOTE | 2022-10-27 07:15 | RT.EKG_ITS ---
APPROVED REPORT Exam: Resting ECG Reason for Exam: sob Patient Location: E HR:85 bpm ECG Measurements Heart Rate 85 AXIS WA 199 P 18 QRSd 83 QRS 44 QT 331 T 49 QTc 394 Conclusion Sinus rhythm...normal P axis, V-rate 60- 99 Physician: no stemi
--- NOTE | 2022-10-27 08:00 | DI.CT_ITS ---
Exam(s) CT CHEST PE CTA EXAM: CT CHEST PE CTA CLINICAL HISTORY: chest pain, hx of pe. TECHNIQUE: Imaging Protocol: Axial CT angiography was performed with multi-slice acquisition and mu lti-planar reconstructions as well as axial, coronal and sagittal MIP reconstructions. CONTRAST MATERIAL: Intravenous: Omnipaque 350 Contrast volume:100 ml COMPARISON: CR XR CHEST 2V PA LATERAL from 08/04/[address] BRAIN NECK CTA from 02/09/2021 FINDINGS: Pulmonary Arteries: No evidence of filling defect to suggest pulmonary emboli. Tracheobronchial tree: Patent where visualized. Mediastinum and Emily: No dominant adenopathy or fluid collection. Pulmonary parenchyma: No consolidation or dominant measurable mass. Dependent changes. Moderate emph ysematous changes, mainly paraseptal, greatest in the upper lobes. Pleura: No effusion or pneumothorax. Heart: The heart is not dilated. No coronary artery calcifications are seen. Aorta: Thoracic aorta non-dilated. No aneurysm. No dissection. Upper abdomen: Severe hepatic steatosis. Cyst upper pole right kidney. Small accessory spleen. Bones: Unremarkable for age. IMPRESSION: No evidence of pulmonary embolism or other acute abnormality. Emphysema, greatest in the upper lobes. RADIATION DOSE DELIVERED: 514.27mGy.cm Total DLP DATA REPOSITORY: All CT scans at this facility are submitted to the National Radiology Data Registry (NRDR) Dose Index Registry (DIR) with the [employer] (ACR). RADIATION OPTIMIZATION: All CT scans at this facility use at least one of these dose optimization te chniques: automated exposure control; mA and/or kV adjustment per patient size (includes targeted exa ms where dose is matched to clinical indication); or iterative reconstruction.
[2022-10-27] MEDS: Lactated Ringers 1,000 ML 1000 ML IV (08:22)
[2022-10-27 08:23] LABS: ESR 3 mm/hr (0-20)
[2022-10-27] MEDS: Aspirin 81 MG CHEW 324 MG CH (08:24)
[2022-10-27] MEDS: Acetaminophen 500 MG TAB 1000 MG PO (08:24)
[2022-10-27 08:36] LABS: Prothrombin Time 10.5 sec (9.3-11.0)
[2022-10-27 08:44] LABS: C-Reactive Protein 1.64 mg/dL (0.0-0.3); Lipase 26 U/L (16-77); Troponin I < 50 ng/L (<or=60)
--- NOTE | 2022-10-27 08:45 | W.ED.GENAD ---
Discharge Plan Disposition Patient Disposition: Home Condition: Stable Discharge Details Clinical Impression: Chest pain, COVID-19 Primary Care Provider: Unknown,Unknown ED Provider: Carola Cintron Home Meds and New Rx's Prescriptions: New prednisone 20 mg tablet 20 mg PO DAILY Qty: 8 0RF Continued omeprazole 20 mg Tablet,Disintegrat, Delay Rel 20 mg PO DAILY citalopram 40 mg Tablet 40 mg PO DAILY Rx Instructions: with a 10 mg tab aspirin [Colleen Low Dose Aspirin] 81 mg Tablet,Delayed Release (Dr/Ec) 81 mg PO DAILY nitroglycerin 0.4 mg Tablet, Sublingual 0.4 mg sublingual PRN PRN albuterol sulfate [Ventolin HFA] 90 mcg/actuation Hfa Aerosol Inhaler 2 puff INHALATION Q4H PRN PRN cyclosporine [Restasis] 0.05 % Dropperette 1 drp ophthalmic (eye) BID budesonide-formoterol [Symbicort] 160-4.5 mcg/actuation Hfa Aerosol Inhaler 2 puff INHALATION BID citalopram 10 mg Tablet 10 mg PO DAILY Rx Instructions: with a 40 mg tablet metoprolol succinate 50 mg Tablet Extended Release 24 Hr 50 mg PO DAILY diltiazem HCl 240 mg Capsule,Extended Release 24 Hr 240 mg PO DAILY fenofibrate micronized 67 mg Capsule 67 mg PO DAILY cholecalciferol (vitamin D3) [Vitamin D3] 25 mcg (1,000 unit) Capsule 25 mcg PO DAILY Discharge Instructions Instructions: Chest Pain (ED), Viral Syndrome (ED) Additional Instructions: You have COVID-19, you are likely on day 4, my recommendation is to isolate for 5 days and wear mask while you are remains symptomatic for at least 10 days Take the molnuprivir as prescribed and use the combivent inhaler instead of your albuterol Always use your spacer has you will not inhale the full amounts if you do not If you have a pulse oximeter to check your oxygen level, if you were desaturating below 90% you should return to the emergency department Increase your fluid hydration Take the steroid as prescribed for your COPD Return earlier should he have new or worsening complaints including worsening chest pain or return of chest pain, worsening shortness of breath Medical Decision Making This 51-year-old gentleman with history of atrial fibrillation, hypertension, hyperlipidemia presents with shortness of breath and chest pain for the past 4 days intermittently. Denies any in fever. States has had chills. Reports myalgias. States he is having shortness of breath which she is attributing to his COPD being affected. He has been taking his meds as prescribed Of note, he did test positive for COVID-19 in the emergency department He is chest pain-free after a DuoNeb and some steroids His lungs are clear to auscultation and he was ambulated for 2 minutes without any hypoxia, in fact the lowest he dropped was 94% on room air 2 troponins are negative feels marked improvement post 2 duoneb tx and steroids Of note he is unable to be vaccinated for COVID-19, may need for Thompson's secondary to drug interactions was initiated and patient is willing to take this, he is also placed on steroids for suspected COPD exacerbation and will start pt on mulnipivir secondary to interactions with pt's medications and paxlovid Suspicion for cardiac etiology of patient's pain, given the threshold to return there is noncompliance, discharged home pain-free, without hypoxia, instructed to take new pills in urine, Combivent, and steroids as prescribed Close outpatient reassessment recommended Return precautions reviewed and patient expressed understanding Medical Records Medical records reviewed: Yes I reviewed the patient's medical records. Lab Data Lab results reviewed: Yes I reviewed the patient's lab results. HPI General Date/Time Provider Initiated Documentation: 10/27/22 07:58. HPI Narrative: This 52-year-old gentleman with history of atrial fibrillation, hypertension, hyperlipidemia presents with report of chest pain, weakness, and back pain. Patient states his symptoms started 4 days ago. He states that he is having significant exertional dyspnea and intermittent nausea which is why he presents. He is unvaccinated for COVID-19 as his information systems security developer tells him that he is high risk as he is predisposed to clots . He denies any current calf pain and swelling but has had bilateral calf pain intermittently over the course of the past several days. He denies any vomiting or diarrhea. He denies any anterior abdominal pain. Denies any urinary complaints. Reports chest pain that radiates to his left arm at this time. Has a history of COPD per patient. We will has had subjective fevers at home. Related Data Home Medications Medication Instructions Recorded Confirmed albuterol sulfate 90 mcg/actuation 2 puff inhalation Q4H PRN PRN 08/04/20 10/27/22 aerosol inhaler (Ventolin HFA) aspirin 81 mg tablet,delayed 81 mg PO DAILY 08/04/20 10/27/22 release (Colleen Low Dose Aspirin) budesonide-formoterol HFA 160 2 puff inhalation BID 08/04/20 10/27/22 mcg-4.5 mcg/actuation aerosol inhaler (Symbicort) citalopram 40 mg tablet 40 mg PO DAILY 08/04/20 10/27/22 cyclosporine 0.05 % eye drops in a 1 drp ophthalmic (eye) BID 08/04/20 10/27/22 dropperette (Restasis) nitroglycerin 0.4 mg sublingual 0.4 mg sublingual PRN PRN 08/04/20 10/27/22 tablet omeprazole 20 mg delayed 20 mg PO DAILY 08/04/20 10/27/22 release,disintegrating tablet cholecalciferol (vitamin D3) 25 25 mcg PO DAILY 10/27/22 10/27/22 mcg (1,000 unit) capsule (Vitamin D3) citalopram 10 mg tablet 10 mg PO DAILY 10/27/22 10/27/22 diltiazem HCl 240 mg capsule,24 240 mg PO DAILY 10/27/22 10/27/22 hr,extended release fenofibrate micronized 67 mg 67 mg PO DAILY 10/27/22 10/27/22 capsule metoprolol succinate 50 mg 50 mg PO DAILY 10/27/22 10/27/22 tablet,extended release 24 hr prednisone 20 mg tablet 20 mg PO DAILY #8 tabs 10/27/22 Previous Rx's Medication Instructions Recorded prednisone 20 mg tablet 20 mg PO DAILY #8 tabs 10/27/22 Allergies Allergy/AdvReac Type Severity Reaction Status Date / Time sulfamethoxazole Allergy Severe Anaphylaxsi Unverified 10/27/22 07:45 [From Bactrim] s trimethoprim [From Bactrim] Allergy Severe Anaphylaxsi Unverified 10/27/22 07:45 s General Stated Complaint: SOB POLA: 2 PFSH All Active Problems (Updated 10/27/22 @ 12:18 by SAVANNA Francis) COVID-19 (Acute) Dermatitis (Acute) Chest pain (Acute) Medical History Atrial fibrillation HTN (hypertension) Hx of hyperlipidemia Surgical History Hx of lithotripsy Social History Smoking/Tobacco Use Status: Former Tobacco Use Quit Date: 09/10/22 Smoking risk assessment performed?: Yes Alcohol Intake: never Drug use: Occasionally Substance use type: does not use Do you feel safe at home: Yes Do you feel safe in your relationship?: Yes Exam Const General: cooperative, comfortable, no acute distress and well developed Resp Effort & Inspection: normal respiratory effort Auscultation: clear to auscultation bilaterally Cardio Rate: regular rate Rhythm: regular rhythm GI Inspection: normal to inspection Skin General skin exam: no rashes or lesions noted Extrem Other: distal pulses intact, no calf swelling or tenderness Course Vital Signs Vital signs: Vital Signs Temperature 37.9 C H 10/27/22 07:31 Pulse 88 10/27/22 07:31 Respiratory Rate 17 10/27/22 07:31 Blood Pressure 159/80 H 10/27/22 07:31 Pulse Oximetry 96 10/27/22 07:31 Temperature 37.9 C H 10/27/22 08:24 Pulse 84 10/27/22 08:01 Pulse 86 10/27/22 08:01 Respiratory Rate 11 L 10/27/22 08:01 Respiratory Effort Incrsd Work of Breathing 10/27/22 07:43 Respiratory Depth Shallow 10/27/22 07:43 Respiratory Pattern Tachypnea 10/27/22 07:43 Blood Pressure 136/81 10/27/22 08:01 Blood Pressure Mean 94 10/27/22 08:01 Blood Pressure Position Sitting 10/27/22 07:31 Pulse Oximetry 96 10/27/22 07:31 Oxygen Delivery Method Room Air 10/27/22 07:31 Oxygen Flow Rate 0 10/27/22 07:31 Pain Level 2 10/27/22 07:43 Lab/Test Results Lab/Test Results: Laboratory Tests Range/Units 10/27/22 10/27/22 07:44 07:44 ESR (0-20) mm/hr 3 PT (9.3-11.0) sec 10.5 INR (0.9-1.1) 1.0
[2022-10-27 08:53] LABS: ALT 83 U/L (16-63); AST 53 U/L (15-37); Alkaline Phosphatase 68 U/L (46-116); Anion Gap 7.7 mmol/L (3-11); BUN 12 mg/dL (7-18); Bilirubin, Total 0.4 mg/dL (0.2-1.0); CO2 26.3 mmol/L (21.0-32.0); CREATININE 1.2 mg/dL (0.70-1.30); Calcium 9.4 mg/dL (8.5-10.1); Chloride 103 mmol/L (98-107); Estimated GFR 72.31 (mL/min/1.73m2); Ferritin 176 ng/mL (26-388); Glucose 123 mg/dL (74-106); Potassium 4.2 mmol/L (3.5-5.1); Sodium 137 mmol/L (136-145); Total Protein 7.3 g/dL (6.4-8.2)
[2022-10-27 08:56] LABS: Procalcitonin 0.1 ng/mL
[2022-10-27 09:03] LABS: Influenza A PCR Negative (Negative); Influenza B PCR Negative (Negative); RSV PCR Negative (Negative)
[2022-10-27 09:05] LABS: COVID-19 PCR Positive (Negative); Source Nasopharynx
[2022-10-27] MEDS: Normal Saline - Diluent 50 ML VIAL IJ (09:28)
[2022-10-27] MEDS: Omnipaque 350 MG/ML 100 ML BTL IV (09:28)
[2022-10-27] MEDS: Normal Saline Flush 10 ML SYR IVP (09:29)
[2022-10-27] MEDS: Dexamethasone 10 MG/ML VIAL IVP (10:11)
[2022-10-27] MEDS: Albuterol/Ipratropium 3 ML UPD VIAL UPD (10:11)
[2022-10-27 11:56] LABS: Troponin I < 50 ng/L (<or=60)
[2022-10-27] MEDS: Ipratropium/Albuterol 4 GM 120 PUFF INH IH (12:25)
== END 2022-10-27 12:40 | disposition home or self-care (01) ==
PROVIDERS: Emergency Provider Physician Assistant
DX: U07.1 COVID-19 (principal); R07.9 Chest pain, unspecified; I10 Essential (primary) hypertension; I48.91 Unspecified atrial fibrillation; J44.9 Chronic obstructive pulmonary disease, unspecified; Z79.51 Long term (current) use of inhaled steroids; Z79.82 Long term (current) use of aspirin
CPT/HCPCS: 36415; 71275; 80053; 83690; 84145; 85652; 87637; 93005; 94640; 96361; 96374; 99285; 82728; 84484; 85610; 86140; 93010; 99284; J1100; J3490; J7620

== ENCOUNTER 2023-01-09 17:37 | Emergency (ER) | payer MEDICARE, MEDICAID, SELFPAY ==
--- NOTE | 2023-01-09 17:30 | RT.EKG_ITS ---
APPROVED REPORT Exam: Resting ECG Reason for Exam: sob, nausea Patient Location: E HR:71 bpm ECG Measurements Heart Rate 71 AXIS ME 191 P 21 QRSd 89 QRS 53 QT 405 T 50 QTc 441 Conclusion Sinus rhythm...normal P axis, V-rate 60- 99
[2023-01-09 17:38] VITALS: BP 148/74; PULSE 72; RESP 16; TEMP 36.6; O2SAT 97
--- NOTE | 2023-01-09 18:15 | DI.CT_ITS ---
Exam(s) CT CHEST/ABD/PEL W EXAM: CT CHEST/ABD/PEL W CLINICAL HISTORY: abdominal, chest pain, recent covid TECHNIQUE: Imaging Protocol: Axial computed tomography images with coronal and sagittal reformatted images were created and reviewed CONTRAST MATERIAL: Intravenous: Omnipaque 350 contrast volume:100 mL Oral: No COMPARISON: CT CT CHEST PE CTA from 10/27/2022 FINDINGS: CHEST: Tracheobronchial tree: Patent where visualized. Pulmonary parenchyma: Moderately severe emphysematous changes. No focal consolidating infiltrates ar e seen. There is stable small subpleural nodules posteriorly in the right lower lobe. Visualized thyroid gland: Unremarkable. Mediastinum and Emily: No dominant adenopathy or fluid collection. The esophagus is unremarkable. Pleura: No effusion or pneumothorax. Heart: The heart is not dilated. Mild coronary artery calcification is present. No pericardial effus ion. Pulmonary arteries: Pulmonary arteries are inadequately opacified, due to bolus timing, for evaluatio n of pulmonary emboli. No large central pulmonary embolus is seen. Aorta: Thoracic aorta non-dilated. Mild atherosclerosis. Lymph nodes: Within normal limits. Soft tissues: Unremarkable. Bones:Within normal limits for the patient's age. ABDOMEN: Liver: There is diffuse decreased attenuation of the liver consistent with fatty infiltration. No me asurable mass. The liver is enlarged. Portal, Superior Mesenteric, and Splenic Veins: Unremarkable. Gallbladder and Biliary Tract: No radiodense calculus or dilation. Pancreas: Normal density, no abnormal calcifications or inflammatory process. Spleen: Normal. Adrenals: No masses seen. Kidneys: Normal size, contour and axis. No radiodense stones or obstructive uropathy. They are unchan ged simple bilateral renal cysts. No follow-up is recommended. There is a circum aortic left renal vein. Abdominal Aorta: Abdominal portion non-dilated. Mild atherosclerosis. Bowel: No obstruction or bowel wall thickening. Appendix is unremarkable. Peritoneal Cavity: No ascites, collection or mesenteric inflammatory response. No free air. Lymph Nodes: There are mildly enlarged lymph nodes seen in the mesentery. These are nonspecific. Th e largest measures 1.9 x 1.8 cm. Bones: Within normal limits for the patient's age. Soft Tissues: Nonspecific soft tissue seen along the abdominal cavity adjacent to the umbilicus. PELVIS: Bladder: Symmetric distention, no gross wall thickening. Reproductive Organs: Unremarkable as visualized. Lymph Nodes: Within normal limits. Bones: Within normal limits. IMPRESSION: 1. No acute pulmonary process. 2. No acute abdominal or pelvic process. 3. Nonspecific mildly enlarged lymph nodes in the mesentery. 4. Nonspecific soft tissue in the anterior abdomen adjacent to the umbilicus. A follow-up CT scan of the abdomen and pelvis in 3-6 months is recommended for re-evaluation of the lymph nodes and soft ti ssue in the abdomen. Unexpected findings RADIATION DOSE DELIVERED: 1,369.77mGy.cm Total DLP DATA REPOSITORY: All CT scans at this facility are submitted to the National Radiology Data Registry (NRDR) Dose Index Registry (DIR) with the [employer] (ACR). RADIATION OPTIMIZATION: All CT scans at this facility use at least one of these dose optimization te chniques: automated exposure control; mA and/or kV adjustment per patient size (includes targeted exa ms where dose is matched to clinical indication); or iterative reconstruction.
[2023-01-09 18:54] LABS: Source Nasal/Nares
[2023-01-09 18:55] LABS: Abs Immature Grans 0.11 10^3/uL (0.0-0.06); Absolute Basophil Count 0.08 10^3/uL (0.0-0.2); Absolute Eosinophil Count 0.25 10^3/uL (0.0-0.7); Absolute Neutrophil Count 3.67 10^3/uL (1.2-6.7); Basophils % 1.1; Eosinophils % 3.4; HCT 36.6 % (40.0-50.0); HGB 13.3 g/dL (13.5-17.5); Immature Grans % 1.5; Lymphocytes % 34.2; MCH 32.4 pg (27.0-33.0); MCHC 36.3 % (32.0-36.0); MCV 89 fL (80-95); MPV 10.3 fL (8.0-11.0); Monocytes % 9.6; Neutrophils % 50.2; Platelet Count 248 10^3/uL (130-400); RDW 12.2 % (11.8-14.1); RDW-SD 39.7 fL; WBC 7.31 10^3/uL (4.4-10.8)
[2023-01-09] MEDS: Ondansetron 4 MG/2 ML VIAL IVP (19:02)
[2023-01-09 19:25] LABS: ALT 79 U/L (16-63); AST 54 U/L (15-37); Albumin 3.8 g/dL (3.4-5.0); Alkaline Phosphatase 70 U/L (46-116); Anion Gap 5.7 mmol/L (3-11); BUN 13 mg/dL (7-18); Bilirubin, Total 0.5 mg/dL (0.2-1.0); CO2 27.3 mmol/L (21.0-32.0); CREATININE 1.1 mg/dL (0.70-1.30); Calcium 9.1 mg/dL (8.5-10.1); Chloride 107 mmol/L (98-107); Estimated GFR 80.27 (mL/min/1.73m2); Glucose 140 mg/dL (74-106); Lipase 23 U/L (16-77); Potassium 3.7 mmol/L (3.5-5.1); Sodium 140 mmol/L (136-145); Troponin I < 50 ng/L (<or=60)
[2023-01-09 19:29] LABS: COVID-19 PCR Negative (Negative)
[2023-01-09] MEDS: Normal Saline Flush 10 ML SYR IVP (19:35)
[2023-01-09] MEDS: Omnipaque 350 MG/ML 100 ML BTL IJ (19:37)
[2023-01-09] MEDS: Normal Saline - Diluent 50 ML VIAL IJ (19:38)
--- NOTE | 2023-01-09 20:29 | DI.VRAD_ITS ---
PROCEDURE INFORMATION: Exam: CT Chest With Contrast; Diagnostic Exam date and time: 01/09/2023 7:41 PM Age: 52 years old Clinical indication: Abdominal pain; Generalized; Other: Recent covid, chest pain; Patient HX: Abdominal, chest pain, recent covid TECHNIQUE: Imaging protocol: Diagnostic computed tomography of the chest with contrast. 3D rendering (Not supervised by radiologist): MIP and/or 3D reconstructed images were created by the technologist. Radiation optimization: All CT scans at this facility use at least one of these dose optimization techniques: automated exposure control; mA and/or kV adjustment per patient size (includes targeted exams where dose is matched to clinical indication); or iterative reconstruction. Contrast material: OMNIPAQUE 350; Contrast volume: 100 ml; Contrast route: INTRAVENOUS (IV); COMPARISON: CT CHEST PE CTA 10/27/2022 9:23 AM FINDINGS: Lungs: Moderate emphysema with apical scarring Pleural spaces: Unremarkable. No pneumothorax. No pleural effusion. Heart: Unremarkable. No cardiomegaly. No pericardial effusion. Lymph nodes: Unremarkable. No enlarged lymph nodes. Vasculature: Unremarkable. No aortic aneurysm. Bones/joints: Unremarkable. No acute fracture. Soft tissues: Unremarkable. IMPRESSION: Emphysema No acute findings PROCEDURE INFORMATION: Exam: CT Abdomen And Pelvis With Contrast Exam date and time: 01/09/2023 7:41 PM Age: 52 years old Clinical indication: Abdominal pain; Generalized; Other: Recent covid, chest pain; Patient HX: Abdominal, chest pain, recent covid TECHNIQUE: Imaging protocol: Computed tomography of the abdomen and pelvis with contrast. 3D rendering (Not supervised by radiologist): MIP and/or 3D reconstructed images were created by the technologist. Radiation optimization: All CT scans at this facility use at least one of these dose optimization techniques: automated exposure control; mA and/or kV adjustment per patient size (includes targeted exams where dose is matched to clinical indication); or iterative reconstruction. Contrast material: OMNIPAQUE 350; Contrast volume: 100 ml; Contrast route: INTRAVENOUS (IV); COMPARISON: CT CHEST PE CTA 10/27/2022 9:23 AM FINDINGS: Liver: Severe fatty infiltration of the liver and hepatomegaly. Gallbladder and bile ducts: Contracted. No calcified stones. No ductal dilation. Pancreas: Normal. No ductal dilation. Spleen: Splenule noted at the hilum. No splenomegaly. Adrenal glands: Normal. No mass. Kidneys and ureters: No hydroureteronephrosis. Simple cysts on the right and indeterminate hypodensities on the left Stomach and bowel: Unremarkable. No obstruction. No mucosal thickening. Appendix: No evidence of appendicitis. Intraperitoneal space: Unremarkable. No free air. No significant fluid collection. Vasculature: Atherosclerosis. No abdominal aortic aneurysm. Lymph nodes: Unremarkable. No enlarged lymph nodes. Urinary bladder: Unremarkable as visualized. Reproductive: Unremarkable as visualized. Bones/joints: Unremarkable. No acute fracture. Soft tissues: Minimal scarring subjacent to the umbilicus IMPRESSION: No acute findings Nonurgent findings as noted Dictated and Authenticated by: Flash Davies MD. Ordering:JANUSZ Srivastava MD
--- NOTE | 2023-01-09 21:52 | NUR.NOTE ---
Nursing Note: Report given to Linda POWELL
[2023-01-09 22:11] LABS: Troponin I < 50 ng/L (<or=60)
--- NOTE | 2023-01-09 22:36 | ED.GENADUL_ITS ---
Discharge Plan Discharge Details Chief Complaint: GenMedical Primary Care Provider: Unknown,Unknown ED Provider: Carola Cintron Home Meds and New Rx's Prescriptions: No Action omeprazole 20 mg Tablet,Disintegrat, Delay Rel 20 mg PO DAILY citalopram 40 mg Tablet 40 mg PO DAILY Rx Instructions: with a 10 mg tab aspirin [Colleen Low Dose Aspirin] 81 mg Tablet,Delayed Release (Dr/Ec) 81 mg PO DAILY nitroglycerin 0.4 mg Tablet, Sublingual 0.4 mg sublingual PRN PRN albuterol sulfate [Ventolin HFA] 90 mcg/actuation Hfa Aerosol Inhaler 2 puff INHALATION Q4H PRN PRN cyclosporine [Restasis] 0.05 % Dropperette 1 drp ophthalmic (eye) BID budesonide-formoterol [Symbicort] 160-4.5 mcg/actuation Hfa Aerosol Inhaler 2 puff INHALATION BID citalopram 10 mg Tablet 10 mg PO DAILY Rx Instructions: with a 40 mg tablet metoprolol succinate 50 mg Tablet Extended Release 24 Hr 50 mg PO DAILY diltiazem HCl 240 mg Capsule,Extended Release 24 Hr 240 mg PO DAILY fenofibrate micronized 67 mg Capsule 67 mg PO DAILY cholecalciferol (vitamin D3) [Vitamin D3] 25 mcg (1,000 unit) Capsule 25 mcg PO DAILY prednisone 20 mg tablet 20 mg PO DAILY Qty: 8 0RF Medical Decision Making 52-year-old gentleman with history of atrial fibrillation, hypertension, hyperlipidemia, presents with intermittent chest discomfort. He has had this same discomfort for years but had nausea today which is why he presents. States he is currently pain-free and has been pain-free since this morning. He has 2 negative troponins 3 hours apart in the emergency department with EKG that does not show any acute pathology He has CTA chest abdomen and pelvis per radiology interpretation my review does not show evidence of acute abnormality Patient has been pain-free and essentially asymptomatic throughout this encounter I will order a stress test in the outpatient setting, he is likely unable to tolerate treadmill test secondary to COPD so will order pharmacological test He will need close outpatient follow-up with his primary care physician, he is encouraged to call him tomorrow for outpatient reassessment He is encouraged to return immediately should he have new or worsening complaints Discharged home in stable condition with stable vitals HPI General Date/Time Provider Initiated Documentation: 01/09/23 17:53 . HPI Narrative: This 52-year-old gentleman presents with report of intermittent chest pain for the past 4 days, really he has been having intermittent chest pains for the past 5 years per patient. He states he last had a cardiac catheterization approximately 7 years ago that was within normal limits and denies any history of known coronary artery disease. He states today he had some mild nausea with the pain and it concerned him which is why he presents. He states he also has some exertional shortness of breath, this has been since he was diagnosed with COVID-19 approximately a month ago and has not worsened this week. He denies any calf pain or swelling. He denies known prior history of coagulopathy. He denies any fever or chills. He has been using his inhalers for COPD as prescribed. He states albuterol does help with some of the symptoms. He denies any current chest discomfort in the emergency department. He thinks he had a stress test approximately a year and a half ago but is unsure which facility this was performed at per patient. He denies any weight gain or orthopnea. He denies any history of illicit drug use or regular alcohol consumption he denies current tobacco use. He reportedly stopped smoking in August. Related Data Home Medications Medication Instructions Recorded Confirmed albuterol sulfate 90 mcg/actuation 2 puff inhalation Q4H PRN PRN 08/04/20 01/09/23 aerosol inhaler (Ventolin HFA) aspirin 81 mg tablet,delayed 81 mg PO DAILY 08/04/20 01/09/23 release (Colleen Low Dose Aspirin) budesonide-formoterol HFA 160 2 puff inhalation BID 08/04/20 01/09/23 mcg-4.5 mcg/actuation aerosol inhaler (Symbicort) citalopram 40 mg tablet 40 mg PO DAILY 08/04/20 01/09/23 cyclosporine 0.05 % eye drops in a 1 drp ophthalmic (eye) BID 08/04/20 01/09/23 dropperette (Restasis) nitroglycerin 0.4 mg sublingual 0.4 mg sublingual PRN PRN 08/04/20 01/09/23 tablet omeprazole 20 mg delayed 20 mg PO DAILY 08/04/20 01/09/23 release,disintegrating tablet cholecalciferol (vitamin D3) 25 25 mcg PO DAILY 10/27/22 01/09/23 mcg (1,000 unit) capsule (Vitamin D3) citalopram 10 mg tablet 10 mg PO DAILY 10/27/22 01/09/23 diltiazem HCl 240 mg capsule,24 240 mg PO DAILY 10/27/22 01/09/23 hr,extended release fenofibrate micronized 67 mg 67 mg PO DAILY 10/27/22 01/09/23 capsule metoprolol succinate 50 mg 50 mg PO DAILY 10/27/22 01/09/23 tablet,extended release 24 hr prednisone 20 mg tablet 20 mg PO DAILY #8 tabs 10/27/22 01/09/23 Previous Rx's Medication Instructions Recorded prednisone 20 mg tablet 20 mg PO DAILY #8 tabs 10/27/22 Allergies Allergy/AdvReac Type Severity Reaction Status Date / Time sulfamethoxazole Allergy Severe Anaphylaxsi Unverified 01/09/23 17:43 [From Bactrim] s trimethoprim [From Bactrim] Allergy Severe Anaphylaxsi Unverified 01/09/23 17:43 s General Stated Complaint: GenMedical POLA: 3 PFSH All Active Problems (Updated 10/27/22 @ 12:18 by SAVANNA Francis) COVID-19 (Acute) Dermatitis (Acute) Chest pain (Acute) Medical History Atrial fibrillation HTN (hypertension) Hx of hyperlipidemia Surgical History Hx of lithotripsy Social History Smoking/Tobacco Use Status: Former Tobacco Use Quit Date: 09/10/22 Smoking risk assessment performed?: Yes Alcohol Intake: never Drug use: Occasionally Substance use type: does not use Do you feel safe at home: Yes Do you feel safe in your relationship?: Yes Exam Narrative Exam Narrative: 51-year-old male, alert and oriented, pupils equal round reactive to light accommodation, lungs clear to auscultation bilaterally, cardiac rate rhythm regular, no murmur rub, no abdominal tenderness, fully alert and oriented, no peripheral edema, neurovascularly intact Course Vital Signs Vital signs: Vital Signs Temperature 36.6 C 01/09/23 17:38 Pulse 72 01/09/23 17:38 Respiratory Rate 16 01/09/23 17:38 Blood Pressure 148/74 H 01/09/23 17:38 Pulse Oximetry 97 01/09/23 17:38 Temperature 36.6 C 01/09/23 17:38 Temperature Source Temporal Artery Scan 01/09/23 17:38 Pulse 72 01/09/23 17:38 Respiratory Rate 16 01/09/23 17:38 Respiratory Effort Normal 01/09/23 17:53 Blood Pressure 148/74 H 01/09/23 17:38 Blood Pressure Position Sitting 01/09/23 17:38 Pulse Oximetry 97 01/09/23 17:38 Oxygen Delivery Method Room Air 01/09/23 17:38 Oxygen Flow Rate 0 01/09/23 17:38 Pain Level 0 01/09/23 17:38 Lab/Test Results Lab/Test Results: Laboratory Tests Range/Units 01/09/23 01/09/23 01/09/23 18:05 18:05 18:50 WBC (4.4-10.8) 10^3/uL 7.31 RBC (4.36-5.78) 10^6/uL 4.10 L Hgb (13.5-17.5) g/dL 13.3 L Hct (40.0-50.0) % 36.6 L MCV (80-95) fL 89 MCH (27.0-33.0) pg 32.4 MCHC (32.0-36.0) % 36.3 H RDW (11.8-14.1) % 12.2 Plt Count (130-400) 10^3/uL 248 MPV (8.0-11.0) fL 10.3 Immature Gran % 1.5 Neutrophils % 50.2 Lymphocytes % 34.2 Monocytes % 9.6 Eosinophils % 3.4 Basophils % 1.1 Nucleated RBC % (0.0-0.3) % 0.0 Absolute Neutrophils (1.2-6.7) 10^3/uL 3.67 Absolute Lymphocytes (1.2-3.4) 10^3/uL 2.50 Absolute Monocytes (0.1-0.8) 10^3/uL 0.70 Absolute Eosinophils (0.0-0.7) 10^3/uL 0.25 Absolute Basophils (0.0-0.2) 10^3/uL 0.08 Sodium (136-145) mmol/L 140 Potassium (3.5-5.1) mmol/L 3.7 Chloride (98-107) mmol/L 107 Carbon Dioxide (21.0-32.0) mmol/L 27.3 Anion Gap (3-11) mmol/L 5.7 BUN (7-18) mg/dL 13 Creatinine (0.70-1.30) mg/dL 1.1 Est GFR (CKD-EPI 2020) (mL/min/1.73m2) 80.27 Glucose (74-106) mg/dL 140 H Calcium (8.5-10.1) mg/dL 9.1 Total Bilirubin (0.2-1.0) mg/dL 0.5 AST (15-37) U/L 54 H ALT (16-63) U/L 79 H Alkaline Phosphatase (46-116) U/L 70 Troponin I (<or=60) ng/L < 50 Total Protein (6.4-8.2) g/dL 7.0 Albumin (3.4-5.0) g/dL 3.8 Lipase (16-77) U/L 23 COVID-19 Source Nasal/Nares SARS-CoV-2 (PCR) (Negative) Negative Range/Units 01/09/23 21:35 WBC (4.4-10.8) 10^3/uL RBC (4.36-5.78) 10^6/uL Hgb (13.5-17.5) g/dL Hct (40.0-50.0) % MCV (80-95) fL MCH (27.0-33.0) pg MCHC (32.0-36.0) % RDW (11.8-14.1) % Plt Count (130-400) 10^3/uL MPV (8.0-11.0) fL Immature Gran % Neutrophils % Lymphocytes % Monocytes % Eosinophils % Basophils % Nucleated RBC % (0.0-0.3) % Absolute Neutrophils (1.2-6.7) 10^3/uL Absolute Lymphocytes (1.2-3.4) 10^3/uL Absolute Monocytes (0.1-0.8) 10^3/uL Absolute Eosinophils (0.0-0.7) 10^3/uL Absolute Basophils (0.0-0.2) 10^3/uL Sodium (136-145) mmol/L Potassium (3.5-5.1) mmol/L Chloride (98-107) mmol/L Carbon Dioxide (21.0-32.0) mmol/L Anion Gap (3-11) mmol/L BUN (7-18) mg/dL Creatinine (0.70-1.30) mg/dL Est GFR (CKD-EPI 2020) (mL/min/1.73m2) Glucose (74-106) mg/dL Calcium (8.5-10.1) mg/dL Total Bilirubin (0.2-1.0) mg/dL AST (15-37) U/L ALT (16-63) U/L Alkaline Phosphatase (46-116) U/L Troponin I (<or=60) ng/L < 50 Total Protein (6.4-8.2) g/dL Albumin (3.4-5.0) g/dL Lipase (16-77) U/L COVID-19 Source SARS-CoV-2 (PCR) (Negative)
[2023-01-09 22:49] VITALS: BP 162/90; PULSE 79; RESP 18; TEMP 36.1; O2SAT 96
== END 2023-01-09 22:53 | disposition home or self-care (01) ==
PROVIDERS: Emergency Provider Physician Assistant
DX: R11.2 Nausea with vomiting, unspecified (principal); R19.7 Diarrhea, unspecified; R06.02 Shortness of breath; I10 Essential (primary) hypertension; Z87.891 Personal history of nicotine dependence; R07.89 Other chest pain; Z20.822 Contact with and (suspected) exposure to COVID-19
CPT/HCPCS: 74177; 80053; 83690; 87635; 93005; 96374; 99285; 71260; 84484; 85025; 93010; 99284; J2405; J3490

== ENCOUNTER 2023-01-12 02:13 | Outpatient (CLI) | payer MEDICARE, MEDICAID, SELFPAY ==
--- NOTE | 2023-01-12 08:45 | DI.NM_ITS ---
APPROVED REPORT Exam: Pharmacologic Patient Location: Out-Patient Room/Bed: Stress Nurse: Radha Caceres RN Ordering Provider:WESTLEY DENISE, Contact Number: [phone] BMI: 31.58 Baseline Rhythm: Sinus Rhythm Indications: SOB, COPD Medical History Medical History: HTN, HLD, afib, covid 19, chest pain, COPD Cardiac Medications: omeprazole, citalopram, aspirin, nitro, albuterol sulfate, symbicort, metoprolol succinate ER, diltiazam, fenofibrate micronized, metoprolol succinate ER, vitamin D Allergies: Trimethoprim sulfamethoaxole Cardiac Risk Factors: Family hx, HTN, HLD, COPD, smoker, asthma, obesity Previous Cardiac Procedures: Cardiac cath 7 years ago Pretest Chest Pain Characteristics: None Exercise History: Sedentary, Indeterminate Physical Disabilities: None Lung Sounds: Clear to auscultation Heart Sounds: Regular Stress Test Details Test: Exercise stress converted to pharmacologic stress due to failure to obtain a diagnostic stres s test. Reason for pharmacologic stress test: changed from exercise stress test due to inability to reach t arget heart rate. Nuclear Acquisition: Rest Tc-99m/Stress Tc-99m 1 day Rest Isotope: Tc-99m Sestamibi. Dose: 10.0 Date: 01/12/2023 Injection Time: 0845 Stress Isotope: Tc-99m Sestamibi. Dose: 32.0 Date: 01/12/2023 Injection Time: 1022 HR Resting HR Supine: 60 bpm Max Heart Rate (APMHR): 167.103198 bpm Resting HR Standin bpm Target HR (85% APMHR): 141.182410 bpm Max HR Achieved: 89 bpm % of APMHR: 53.29 Recovery HR: 69 bpm HR response to stress: Blunted HR response to stress Comment: Patient reported moderate dyspnea and elected to move to [facility]. Also noted patient had bl unted response to exercise. BP Resting BP Supine: 122/76 mmHg Resting BP Standin/74 mmHg Max BP: 164/58 mmHg Recovery BP: 118/68 mmHg BP response to stress: Normal blood pressure response to stress. ECG Resting ECG: Sinus Rhythm Ectopy: None Stress ECG: Sinus Rhythm ST Change: Nondiagnostic low heart rate Arrhythmia: None Recovery ECG: Sinus Rhythm Recovery ST Change: Nondiagnostic low heart rate Comment: None Clinical Reason for Termination: Dyspnea Stress Symptoms: Dyspnea, General Fatigue Angina Score: None Rate Pressure Product: 70281 Stress ECG Conclusion 1. The resting electrocardiogram showed voltage for left ventricular hypertrophy 2. Patient underwent testing using a combination of low-level exercise and pharmacologic stress with regadenoson 3. Peak heart rate achieved was 53% of predicted for age 4. The electrocardiographic portion of the test was nondiagnostic 5. See MPI report Stress Test Summary STAGE HR BP SpO2 Symptoms NOTES Supine 60 122/76 94 Standing 63 130/74 94 1 min post Lexiscan injection 87 164/58 98 Mod dyspnea 3 min post Lexiscan injection 75 148/70 Mild dyspnea 6 min post Lexiscan injection 69 118/68 95 Dyspnea resolved Attempted Luis protocol. Patient verbalized moderate dyspnea and elected to use medication due to dy spnea after a very short period during stage one on treadmill. Treadmill speed manually decreased to 1.2 mph with a 0% grade and patient given lexiscan. Patient continued to verabalize moderate dyspnea but was able to safely complete test. All symptoms resolved when patient left ambulatory in no appare nt distress. MPI Conclusion Normal myocardial perfusion without evidence of ischemia or prior infarction EF is 67%, wall motion is normal Radiologist Interpretation Radiologist agrees with Counter Installer's Interpretation. Radiologist Interpretation by: Kvng Brandt MD Interpretation Date/Time: 01/13/2023 12:22:38
[2023-01-12] MEDS: Regadenoson 0.4 MG/5 ML SYR IVP (10:32)
== END 2023-01-12 02:33 ==
PROVIDERS: Visit Provider Physician Assistant
DX: R06.02 Shortness of breath (principal)
CPT/HCPCS: 78452; 93016; 93018; 93017; J2785

== ENCOUNTER 2023-02-25 17:09 | Emergency (ER) | payer MEDICARE, MEDICAID, SELFPAY ==
[2023-02-25 17:15] VITALS: BP 153/82; PULSE 78; RESP 16; TEMP 36.9; O2SAT 94
--- NOTE | 2023-02-25 17:43 | ED.GENADUL_ITS ---
Discharge Plan Disposition Patient Disposition: Home Discharge Details Clinical Impression: Tick bite of ankle Primary Care Provider: Unknown,Unknown ED Provider: Shay Fairbanks Home Meds and New Rx's Prescriptions: No Action omeprazole 20 mg Tablet,Disintegrat, Delay Rel 20 mg PO DAILY citalopram 40 mg Tablet 40 mg PO DAILY Rx Instructions: with a 10 mg tab aspirin [Colleen Low Dose Aspirin] 81 mg Tablet,Delayed Release (Dr/Ec) 81 mg PO DAILY nitroglycerin 0.4 mg Tablet, Sublingual 0.4 mg sublingual PRN PRN albuterol sulfate [Ventolin HFA] 90 mcg/actuation Hfa Aerosol Inhaler 2 puff INHALATION Q4H PRN PRN cyclosporine [Restasis] 0.05 % Dropperette 1 drp ophthalmic (eye) BID budesonide-formoterol [Symbicort] 160-4.5 mcg/actuation Hfa Aerosol Inhaler 2 puff INHALATION BID citalopram 10 mg Tablet 10 mg PO DAILY Rx Instructions: with a 40 mg tablet metoprolol succinate 50 mg Tablet Extended Release 24 Hr 50 mg PO DAILY diltiazem HCl 240 mg Capsule,Extended Release 24 Hr 240 mg PO DAILY fenofibrate micronized 67 mg Capsule 67 mg PO DAILY cholecalciferol (vitamin D3) [Vitamin D3] 25 mcg (1,000 unit) Capsule 25 mcg PO DAILY prednisone 20 mg tablet 20 mg PO DAILY Qty: 8 0RF Discharge Instructions Instructions: Tick Bite (ED) Additional Instructions: Please continue to monitor symptoms return immediately to the emergency department for new or worsening symptoms otherwise follow-up with your primary care provider as needed. Referrals: Primary Care Provider [Outside] Discharge Data Discharge Date/Time-TO BE ENTERED AT DEPARTURE: 02/25/23 18:18 Medical Decision Making Patient presenting to the emergency department for chief complaint of tick bite. Patient reports 2 days ago he removed a very small tick from the anterior aspect of the left ankle. Patient denies any other symptoms. Physical exam shows findings consistent with tick bite to the left anterior ankle otherwise unremarkable exam. No signs of erythema margins, patient denies all other symptoms that would suggest transmission of tickborne illness. Given within 72 hours of removal will give patient single dose of doxycycline. Patient otherwise monitor for symptoms and follow-up with primary care return as needed. After discussion of diagnosis and plan of care patient has no further needs, questions, or concerns and states clear understanding to return to the emergency department for any worsening symptoms. This documentation was generated using [employer] dictation system, please disregard any oddities of phrase or misspellings. HPI General Mode of arrival: ambulatory . Date/Time Provider Initiated Documentation: 02/25/23 17:43 . Limitations to Documentation: no limitations . Information obtained by: patient and RN notes reviewed . History of Present Illness 52 year old M presents to the emergency department with the chief complaint of tick bite, Patient notes no other symptoms.. Patient did receive the following treatments prior to arrival, none Related Data Home Medications Medication Instructions Recorded Confirmed albuterol sulfate 90 mcg/actuation 2 puff inhalation Q4H PRN PRN 08/04/20 01/09/23 aerosol inhaler (Ventolin HFA) aspirin 81 mg tablet,delayed 81 mg PO DAILY 08/04/20 01/09/23 release (Colleen Low Dose Aspirin) budesonide-formoterol HFA 160 2 puff inhalation BID 08/04/20 01/09/23 mcg-4.5 mcg/actuation aerosol inhaler (Symbicort) citalopram 40 mg tablet 40 mg PO DAILY 08/04/20 01/09/23 cyclosporine 0.05 % eye drops in a 1 drp ophthalmic (eye) BID 08/04/20 01/09/23 dropperette (Restasis) nitroglycerin 0.4 mg sublingual 0.4 mg sublingual PRN PRN 08/04/20 01/09/23 tablet omeprazole 20 mg delayed 20 mg PO DAILY 08/04/20 01/09/23 release,disintegrating tablet cholecalciferol (vitamin D3) 25 25 mcg PO DAILY 10/27/22 01/09/23 mcg (1,000 unit) capsule (Vitamin D3) citalopram 10 mg tablet 10 mg PO DAILY 10/27/22 01/09/23 diltiazem HCl 240 mg capsule,24 240 mg PO DAILY 10/27/22 01/09/23 hr,extended release fenofibrate micronized 67 mg 67 mg PO DAILY 10/27/22 01/09/23 capsule metoprolol succinate 50 mg 50 mg PO DAILY 10/27/22 01/09/23 tablet,extended release 24 hr prednisone 20 mg tablet 20 mg PO DAILY #8 tabs 10/27/22 01/09/23 Previous Rx's Medication Instructions Recorded prednisone 20 mg tablet 20 mg PO DAILY #8 tabs 10/27/22 Allergies Allergy/AdvReac Type Severity Reaction Status Date / Time sulfamethoxazole Allergy Severe Anaphylaxsi Unverified 02/25/23 17:17 [From Bactrim] s trimethoprim [From Bactrim] Allergy Severe Anaphylaxsi Unverified 02/25/23 17:17 s General Stated Complaint: InsectBite POLA: 4 Review of Systems Constitutional Constitutional: Denies body ache(s), Denies fever(s) and Denies headache(s) ENT Ears, Nose, Mouth, and Throat: Denies headache(s) Musculoskeletal Musculoskeletal: Denies myalgias, Denies arthralgias and Denies joint swelling Integumentary/Breasts Skin/Breast: Reports as per HPI, Denies erythema and Denies rash Neurologic Neurologic: Denies headache(s) and Denies paresthesias PFSH All Active Problems (Updated 02/25/23 @ 17:47 by Shay Fairbanks NP) COVID-19 (Acute) Tick bite of ankle (Acute) Dermatitis (Acute) Chest pain (Acute) Medical History Atrial fibrillation HTN (hypertension) Hx of hyperlipidemia Surgical History Hx of lithotripsy Social History Smoking/Tobacco Use Status: Former Tobacco Use Quit Date: 09/10/22 Smoking risk assessment performed?: Yes Alcohol Intake: never Drug use: Never Substance use type: does not use Do you feel safe at home: Yes Do you feel safe in your relationship?: Yes Exam Const General: cooperative, comfortable and no acute distress Orientation: alert, awake and oriented x3 Resp Effort & Inspection: normal respiratory effort and able to speak in complete sentences Skin General skin exam: no fluctuance, no induration and other (Area consistent with tick bite/insect bite to left anterior ankle) Rashes: no rashes Neuro General: patient alert, patient awake and patient oriented x3 Course Vital Signs Vital signs: Vital Signs Temperature 36.9 C 02/25/23 17:15 Pulse 78 02/25/23 17:15 Respiratory Rate 16 06/03/23 17:15 Blood Pressure 153/82 H 02/25/23 17:15 Pulse Oximetry 94 02/25/23 17:15 Temperature 36.9 C 02/25/23 17:15 Temperature Source Oral 02/25/23 17:15 Pulse 78 02/25/23 17:15 Respiratory Rate 16 02/25/23 17:15 Respiratory Effort Normal 02/25/23 17:33 Blood Pressure 153/82 H 02/25/23 17:15 Blood Pressure Position Sitting 02/25/23 17:15 Pulse Oximetry 94 02/25/23 17:15 Oxygen Delivery Method Room Air 02/25/23 17:15 Oxygen Flow Rate 0 02/25/23 17:15 Pain Level 0 02/25/23 17:15
== END 2023-02-25 18:18 | disposition home or self-care (01) ==
PROVIDERS: Emergency Provider Nurse Practitioner Family
DX: S80.862A Insect bite (nonvenomous), left lower leg, initial encounter (principal); W57.XXXA Bitten or stung by nonvenomous insect and other nonvenomous arthropods, initial encounter
CPT/HCPCS: 99283

== ENCOUNTER 2023-06-07 18:20 | Emergency (ER) | payer MEDICARE, MEDICAID, SELFPAY ==
[2023-06-07] VITALS (16 sets, daily range): BP systolic 129–160; BP diastolic 84–113; PULSE 66–73; RESP 0–31; TEMP 36.4–36.8; O2SAT 93–99
--- NOTE | 2023-06-07 18:15 | RT.EKG_ITS ---
APPROVED REPORT Exam: Resting ECG Reason for Exam: Chest Pain Patient Location: E HR:64 bpm ECG Measurements Heart Rate 64 AXIS VA 201 P 54 QRSd 89 QRS 54 QT 400 T 32 QTc 414 Conclusion Sinus rhythm...normal P axis, V-rate 60- 99 normal sinus rhythm, normal axis, normal intervals, non ischemic
--- NOTE | 2023-06-07 18:30 | DI.RAD_ITS ---
Exam(s) XR CHEST 2V PA LATERAL EXAM: XR CHEST 2V PA LATERAL CLINICAL HISTORY: chest pain, sob TECHNIQUE: 2D digital imaging was performed. COMPARISON: CT CT CHEST/ABD/PEL W from 01/09/2023 FINDINGS: HEART: Normal size. Aorta: Not dilated. PULMONARY VASCULATURE: Normal. LUNGS: Eczematous and fibrotic changes. No infiltrate, effusion or pulmonary edema. PLEURAL SPACE: No pleural effusion or pneumothorax. BONE:Unremarkable for age. IMPRESSION: No acute abnormality. Emphysematous changes. DATA REPOSITORY: RADIATION DOSE DELIVERED:
--- NOTE | 2023-06-07 18:49 | ED.GENADUL_ITS ---
Discharge Plan Disposition Patient Disposition: Home Condition: Improving Discharge Details Chief Complaint: Chest Pain Clinical Impression: Chest pain Primary Care Provider: Radha Johnson ED Provider: Jameson Bailey Home Meds and New Rx's Prescriptions: No Action amlodipine 2.5 mg tablet 2.5 mg PO DAILY bupropion HCl 150 mg tablet extended release 24 hr 150 mg PO DAILY eszopiclone 2 mg tablet 2 mg PO QHS PRN famotidine 40 mg tablet 40 mg PO DAILY folic acid 1 mg tablet 1 mg PO DAILY metoprolol ta-hydrochlorothiaz 100-25 mg tablet 0.5 tab PO DAILY mirtazapine 7.5 mg tablet 7.5 mg PO DAILY pantoprazole 40 mg tablet,delayed release (DR/EC) 40 mg PO DAILY trazodone 50 mg tablet 50 mg PO DAILY citalopram 40 mg Tablet 40 mg PO DAILY Rx Instructions: with a 10 mg tab aspirin [Colleen Low Dose Aspirin] 81 mg Tablet,Delayed Release (Dr/Ec) 81 mg PO DAILY nitroglycerin 0.4 mg Tablet, Sublingual 0.4 mg sublingual PRN PRN albuterol sulfate [Ventolin HFA] 90 mcg/actuation Hfa Aerosol Inhaler 2 puff INHALATION Q4H PRN PRN cyclosporine [Restasis] 0.05 % Dropperette 1 drp ophthalmic (eye) BID budesonide-formoterol [Symbicort] 160-4.5 mcg/actuation Hfa Aerosol Inhaler 2 puff INHALATION BID citalopram 10 mg Tablet 10 mg PO DAILY Rx Instructions: with a 40 mg tablet metoprolol succinate 50 mg Tablet Extended Release 24 Hr 50 mg PO DAILY diltiazem HCl 240 mg Capsule,Extended Release 24 Hr 240 mg PO DAILY fenofibrate micronized 67 mg Capsule 67 mg PO DAILY cholecalciferol (vitamin D3) [Vitamin D3] 25 mcg (1,000 unit) Capsule 25 mcg PO DAILY prednisone 20 mg tablet 20 mg PO DAILY Qty: 8 0RF Discharge Instructions Instructions: Chest Pain (ED) Medical Decision Making 53-year-old male presents with several weeks of anterior chest pain, shortness of breath worse with exertion and bilateral ankle edema. Consider CHF versus ACS lower suspicion for PE or aortic pathology. Must also consider pleurisy versus musculoskeletal discomfort versus costochondritis versus anxiety lower suspicion for pneumonia or pneumothorax. Screening labs including troponin BNP, EKG chest x-ray, aspirin Lasix close reassessment of symptoms 20: 02 patient was comfortably asymptomatic labs and imaging unremarkable. Patient is chest pain-free. No respiratory symptoms. Patient requesting COVID test just for screening purposes. Patient endorses recent negative echocardiogram and stress test. Has close follow-up with primary care zeferino alex. Given home care instructions and return precautions HPI General Date/Time Provider Initiated Documentation: 06/07/23 18:32 . HPI Narrative: 53-year-old male presents with chest pain over the past several weeks anterior nature, also shortness of breath worse with exertion, also endorses bilateral lower extremity swelling. Denies history of coronary artery stenting or open heart surgery. Denies history of PE. Related Data Home Medications Medication Instructions Recorded Confirmed albuterol sulfate 90 mcg/actuation 2 puff inhalation Q4H PRN PRN 08/04/20 01/09/23 aerosol inhaler (Ventolin HFA) aspirin 81 mg tablet,delayed 81 mg PO DAILY 08/04/20 01/09/23 release (Colleen Low Dose Aspirin) budesonide-formoterol HFA 160 2 puff inhalation BID 08/04/20 01/09/23 mcg-4.5 mcg/actuation aerosol inhaler (Symbicort) citalopram 40 mg tablet 40 mg PO DAILY 08/04/20 01/09/23 cyclosporine 0.05 % eye drops in a 1 drp ophthalmic (eye) BID 08/04/20 01/09/23 dropperette (Restasis) nitroglycerin 0.4 mg sublingual 0.4 mg sublingual PRN PRN 08/04/20 01/09/23 tablet cholecalciferol (vitamin D3) 25 25 mcg PO DAILY 10/27/22 01/09/23 mcg (1,000 unit) capsule (Vitamin D3) citalopram 10 mg tablet 10 mg PO DAILY 10/27/22 01/09/23 diltiazem HCl 240 mg capsule,24 240 mg PO DAILY 10/27/22 01/09/23 hr,extended release fenofibrate micronized 67 mg 67 mg PO DAILY 10/27/22 01/09/23 capsule metoprolol succinate 50 mg 50 mg PO DAILY 10/27/22 01/09/23 tablet,extended release 24 hr prednisone 20 mg tablet 20 mg PO DAILY #8 tabs 10/27/22 01/09/23 amlodipine 2.5 mg tablet 2.5 mg PO DAILY 04/10/23 bupropion HCl 150 mg 24 hr tablet, 150 mg PO DAILY 04/10/23 extended release eszopiclone 2 mg tablet 2 mg PO QHS PRN 04/10/23 famotidine 40 mg tablet 40 mg PO DAILY 04/10/23 folic acid 1 mg tablet 1 mg PO DAILY 04/10/23 metoprolol tartrate 100 0.5 tab PO DAILY 04/10/23 mg-hydrochlorothiazide 25 mg tablet mirtazapine 7.5 mg tablet 7.5 mg PO DAILY 04/10/23 pantoprazole 40 mg tablet,delayed 40 mg PO DAILY 04/10/23 release trazodone 50 mg tablet 50 mg PO DAILY 04/10/23 Previous Rx's Medication Instructions Recorded prednisone 20 mg tablet 20 mg PO DAILY #8 tabs 10/27/22 Allergies Allergy/AdvReac Type Severity Reaction Status Date / Time sulfamethoxazole Allergy Severe Anaphylaxsi Unverified 06/07/23 18:28 [From Bactrim] s trimethoprim [From Bactrim] Allergy Severe Anaphylaxsi Unverified 06/07/23 18:28 s General Stated Complaint: Chest Pain POLA: 3 Review of Systems Narrative: Review of Systems Constitutional: negative Eyes: negative ENT: negative Cardiovascular: Chest pain Respiratory: Shortness of breath Gastrointestinal: negative : negative Musculoskeletal: negative Skin: negative Neurologic: negative Psych: negative PFSH All Active Problems (Updated 06/07/23 @ 20:03 by Jameson Bailey MD) Chest pain (Acute) Raynaud disease (Acute) Paroxysmal atrial fibrillation (Acute) TOVA (obstructive sleep apnea) (Chronic) Illiteracy (Acute) HLD (hyperlipidemia) (Acute) History of smoking (Acute) COPD (chronic obstructive pulmonary disease) (Chronic) Depression (Chronic) GERD (gastroesophageal reflux disease) (Chronic) ADHD (Acute) Asthma (Chronic) COVID-19 (Acute) Dermatitis (Acute) Chest pain (Acute) Medical History Atrial fibrillation HTN (hypertension) Hx of hyperlipidemia Surgical History Hx of lithotripsy Social History Smoking/Tobacco Use Status: Former Tobacco Use Quit Date: 09/10/22 Smoking risk assessment performed?: Yes Alcohol Intake: never Drug use: Never Substance use type: does not use Do you feel safe at home: Yes Do you feel safe in your relationship?: Yes Exam Narrative Exam Narrative: Physical Examination General: alert, awake, cooperative, resting comfortably, no acute distress HEENT: normocephalic, atraumatic; PERRL, EOM intact, conjunctiva normal; no nasal discharge; moist mucous membranes, oral and pharyngeal mucosa normal, tolerating secretions Neck: supple, trachea midline; full ROM Chest: normal to inspection Respiratory: normal respiratory effort, speaking in full sentences, clear to auscultation, no wheezing, rales or rhonchi Cardiac: regular rate, regular rhythm, S1S2 intact, no murmurs rubs or gallops GI: abdomen soft, non-tender, non-distended; no palpable mass or hepatosplenomegaly Skin: no lesions, rashes or trauma appreciated Neuro: AAOx3, normal speech, moving all extremities Extremities: Bilateral ankle edema Psych: Appropriate mood and affect Course Vital Signs Vital signs: Vital Signs Temperature 36.8 C 06/07/23 18:24 Pulse 69 06/07/23 18:24 Respiratory Rate 20 06/07/23 18:24 Blood Pressure 160/113 H 06/07/23 18:24 Pulse Oximetry 99 06/07/23 18:24 Temperature 36.8 C 06/07/23 18:24 Pulse 69 06/07/23 18:27 Pulse 69 06/07/23 18:27 Respiratory Rate 17 06/07/23 18:27 Respiratory Effort Normal 06/07/23 18:29 Blood Pressure 160/113 H 06/07/23 18:27 Blood Pressure Mean 130 06/07/23 18:27 Blood Pressure Position Supine 06/07/23 18:24 Pulse Oximetry 99 06/07/23 18:27 Oxygen Delivery Method Room Air 06/07/23 18:24 Oxygen Flow Rate 0 06/07/23 18:24
[2023-06-07 18:55] LABS: Abs Immature Grans 0.06 10^3/uL (0.0-0.06); Absolute Basophil Count 0.05 10^3/uL (0.0-0.2); Absolute Eosinophil Count 0.29 10^3/uL (0.0-0.7); Absolute Monocyte Count 0.49 10^3/uL (0.1-0.8); Absolute Neutrophil Count 5.07 10^3/uL (1.2-6.7); Basophils % 0.6; Eosinophils % 3.6; HCT 38.7 % (40.0-50.0); HGB 13.5 g/dL (13.5-17.5); Immature Grans % 0.8; Lymphocytes % 25.1; MCH 30.9 pg (27.0-33.0); MCHC 34.9 % (32.0-36.0); MCV 89 fL (80-95); MPV 9.9 fL (8.0-11.0); Monocytes % 6.2; Neutrophils % 63.7; Platelet Count 266 10^3/uL (130-400); RBC 4.37 10^6/uL (4.36-5.78); RDW 12.2 % (11.8-14.1); RDW-SD 39.8 fL; WBC 7.96 10^3/uL (4.4-10.8)
[2023-06-07 19:11] LABS: PTT Activated 25.1 sec (21.5-31.9); Prothrombin Time 10.4 sec (9.3-11.0)
--- NOTE | 2023-06-07 19:13 | NUR.NOTE ---
Received report from Ira POWELL, assumed care at this time, introduced self to pt, no needs verbalized at this time.
[2023-06-07] MEDS: Aspirin 81 MG CHEW 243 MG CH (19:21)
[2023-06-07] MEDS: Furosemide 100 MG/10 ML VIAL 80 MG IVP (19:21)
[2023-06-07 19:30] LABS: ALT 63 U/L (16-63); AST 44 U/L (15-37); Albumin 4.2 g/dL (3.4-5.0); Alkaline Phosphatase 62 U/L (46-116); BUN 15 mg/dL (7-18); Bilirubin, Total 0.6 mg/dL (0.2-1.0); CREATININE 1.1 mg/dL (0.70-1.30); Calcium 9.5 mg/dL (8.5-10.1); Chloride 101 mmol/L (98-107); Estimated GFR 79.77 (mL/min/1.73m2); Glucose 86 mg/dL (74-106); NT-proBNP 48 pg/mL (<300); Potassium 3.7 mmol/L (3.5-5.1); Sodium 138 mmol/L (136-145); TSH (W/Ref FT4) 2.94 uIU/mL (0.36-3.74); Total Protein 7.8 g/dL (6.4-8.2); Troponin I < 50 ng/L (<or=60)
--- NOTE | 2023-06-07 19:35 | DI.VRAD_ITS ---
PROCEDURE INFORMATION: Exam: XR Chest Exam date and time: 06/07/2023 7:14 PM Age: 53 years old Clinical indication: Shortness of breath; Patient HX: Chest pain, SOB TECHNIQUE: Imaging protocol: Radiologic exam of the chest. Views: 2 views. COMPARISON: CT CHEST/ABD/PEL W 01/09/2023 7:41 PM FINDINGS: Lungs: Increased lucency at the pulmonary apices in keeping with known emphysema. No pulmonary consolidation. Pleural spaces: No pleural effusion or pneumothorax. Heart/Mediastinum: Normal-sized heart. Cardiac monitoring leads noted. Bones/joints: Visualized bony structures grossly intact, as seen. IMPRESSION: Known emphysema at the lung apices. No pulmonary consolidation, pleural effusion, or pneumothorax. Dictated and Authenticated by: Zachary De Luna MD. Ordering:JAYLON Barba MD
== END 2023-06-07 20:45 | disposition home or self-care (01) ==
PROVIDERS: Emergency Provider Emergency Medicine; PCP Physician Assistant Medical
DX: R07.89 Other chest pain (principal); R06.02 Shortness of breath; M25.572 Pain in left ankle and joints of left foot; M25.571 Pain in right ankle and joints of right foot; R22.43 Localized swelling, mass and lump, lower limb, bilateral; J44.9 Chronic obstructive pulmonary disease, unspecified; I10 Essential (primary) hypertension; E78.5 Hyperlipidemia, unspecified; Z87.891 Personal history of nicotine dependence; Z20.822 Contact with and (suspected) exposure to COVID-19
CPT/HCPCS: 36415; 80053; 87426; 93005; 96374; 99285; 71046; 83880; 84443; 84484; 85025; 85610; 85730; 93010; 99284; J1940

== ENCOUNTER 2023-06-20 17:35 | Emergency (ER) | payer MEDICARE, MEDICAID, SELFPAY ==
--- NOTE | 2023-06-20 17:30 | RT.EKG_ITS ---
APPROVED REPORT Exam: Resting ECG Reason for Exam: Numbness Patient Location: E HR:80 bpm ECG Measurements Heart Rate 80 AXIS TN 184 P 54 QRSd 87 QRS 53 QT 356 T 36 QTc 411 Conclusion Sinus rhythm...normal P axis, V-rate 60- 99 Narrow complex normal sinus rhythm at a rate of 80. Normal axis. Intervals within normal limits. N o ST segment abnormalities. No T wave inversions. Appears similar to prior. Prior dated earlier th is month.
--- NOTE | 2023-06-20 17:30 | DI.CT_ITS ---
Exam(s) CT HEAD WO EXAM: CT HEAD WO CLINICAL HISTORY: Headache, left side numbness. TECHNIQUE: Imaging Protocol: Axial computed tomography images with coronal and sagittal reformatted images were created and reviewed COMPARISON: CT CT HEAD WO from 08/20/2022 FINDINGS: There are no skull fractures. There is no fluid in the visualized paranasal sinuses. There is no evidence of intracranial hemorrhage, mass effect, or shift of midline structures. There are no extra-axial fluid collections. The ventricles are not enlarged or shifted and there is no blo od within the ventricular system nor within the basal cisterns. IMPRESSION: No acute intracranial findings on this noninfused CT scan of the brain. RADIATION DOSE DELIVERED: 694.16mGy.cm Total DLP DATA REPOSITORY: All CT scans at this facility are submitted to the National Radiology Data Registry (NRDR) Dose Index Registry (DIR) with the [employer] (A[employer]). RADIATION OPTIMIZATION: All CT scans at this facility use at least one of these dose optimization te chniques: automated exposure control; mA and/or kV adjustment per patient size (includes targeted exa ms where dose is matched to clinical indication); or iterative reconstruction.
--- NOTE | 2023-06-20 17:30 | DI.RAD_ITS ---
Exam(s) XR CHEST 2V PA LATERAL EXAM: XR CHEST 2V PA LATERAL CLINICAL HISTORY: Numbness. TECHNIQUE: 2D digital imaging was performed. COMPARISON: CR,XR XR CHEST 2V PA LATERAL from 06/07/2023 FINDINGS: 2 views: Heart size is normal. The mediastinum is not widened. Lungs are clear. No infiltrates nor pleural effusions. IMPRESSION: No acute pulmonary findings. DATA REPOSITORY: RADIATION DOSE DELIVERED:
[2023-06-20 17:38] VITALS: BP 152/80; PULSE 82; RESP 18; TEMP 36.7; O2SAT 98
--- NOTE | 2023-06-20 17:52 | ED.GENADUL_ITS ---
Discharge Plan Disposition Patient Disposition: Against Medical Advice Discharge Details Clinical Impression: Numbness on left side, Hypercalcemia Primary Care Provider: Radha Johnson ED Provider: Yuri Yo Whitney Meds and New Rx's Prescriptions: Continued amlodipine 2.5 mg tablet 2.5 mg PO DAILY bupropion HCl 150 mg tablet extended release 24 hr 150 mg PO DAILY eszopiclone 2 mg tablet 2 mg PO QHS PRN famotidine 40 mg tablet 40 mg PO DAILY folic acid 1 mg tablet 1 mg PO DAILY metoprolol ta-hydrochlorothiaz 100-25 mg tablet 0.5 tab PO DAILY mirtazapine 7.5 mg tablet 7.5 mg PO DAILY pantoprazole 40 mg tablet,delayed release (DR/EC) 40 mg PO DAILY trazodone 50 mg tablet 50 mg PO DAILY citalopram 40 mg Tablet 40 mg PO DAILY Rx Instructions: with a 10 mg tab aspirin [Colleen Low Dose Aspirin] 81 mg Tablet,Delayed Release (Dr/Ec) 81 mg PO DAILY nitroglycerin 0.4 mg Tablet, Sublingual 0.4 mg sublingual PRN PRN albuterol sulfate [Ventolin HFA] 90 mcg/actuation Hfa Aerosol Inhaler 2 puff INHALATION Q4H PRN PRN cyclosporine [Restasis] 0.05 % Dropperette 1 drp ophthalmic (eye) BID budesonide-formoterol [Symbicort] 160-4.5 mcg/actuation Hfa Aerosol Inhaler 2 puff INHALATION BID citalopram 10 mg Tablet 10 mg PO DAILY Rx Instructions: with a 40 mg tablet metoprolol succinate 50 mg Tablet Extended Release 24 Hr 50 mg PO DAILY diltiazem HCl 240 mg Capsule,Extended Release 24 Hr 240 mg PO DAILY fenofibrate micronized 67 mg Capsule 67 mg PO DAILY cholecalciferol (vitamin D3) [Vitamin D3] 25 mcg (1,000 unit) Capsule 25 mcg PO DAILY prednisone 20 mg tablet 20 mg PO DAILY Qty: 8 0RF Discharge Instructions Additional Instructions: You were seen in the emergency department for your left sided numbness. Your CAT scan showed no sign of any bleeding in your brain. Your EKG and blood work showed no sign of any heart attacks. It was recommended that you stay in the emergency department to have an MRI performed in the morning. You declined. If you develop any recurrent numbness any weakness or have any other concerns please return to the emergency department. Please continue taking your medications as previously prescribed. Discharge Data Discharge Date/Time-TO BE ENTERED AT DEPARTURE: 06/20/23 20:18 HPI General Date/Time Provider Initiated Documentation: 06/20/23 17:37 . HPI Narrative: HPI This is a 53-year-old male arrived to the emergency department via private vehicle in the setting of left-sided numbness. Patient reports that he began to have left-sided numbness about a week ago. He also notes that he has been coughing up some white phlegm. He also complains of a left-sided headache. He has intermittently been seeing some spots. He feels generally fatigued. He has not taken any falls. He has a history of paroxysmal atrial fibrillation but is not anticoagulated. No recent falls. Patient does feel dizzy and lightheaded. He has baseline shortness of breath and chest pain. He has been coughing. He rarely drinks ethanol denies routine tobacco and illicits. No prior history of similar symptoms in the past. Exam General: Well-appearing in no acute distress speaking in complete sentences. Head: Normocephalic, atraumatic. Eye: Extraocular eye movements intact. No conjunctival injection. No scleral icterus. Ear, nose, mouth, throat: Grossly normal inspection. Normal voice, handling secretions normally. Neck: Trachea midline. Cardiovascular: Well-perfused distal extremities. Respiratory: Nonlabored respiration. Gastrointestinal: Nondistended abdomen. Musculoskeletal: No edema. Moving all 4 extremities spontaneously. Skin: Normal for age and race, grossly normal temperature and turgor. No acute rash. Neurologic: Alert and appropriate, no apparent acute deficits. GCS 15. Cranial nerves II through XII intact grossly with exception of mild left-sided decreased sensation V1 through V3. No pronator drift. No dysdiadochokinesia. Patient has decreased left-sided upper extremity sensation throughout arm and hand. 5 out of 5 bilateral lower extremity strength. Left lower extremity with decreased sensation from the knee down to the foot compared to right. No truncal ataxia. No nystagmus. No aphasia. No dysarthria. NIH stroke scale 1 secondary to mild to moderate loss of sensation left upper and lower extremities and left face. Psychiatric: Mood and manner are appropriate. Grooming and personal hygiene are appropriate. MDM This is an overall well-appearing normothermic and not tachycardic 53-year-old male with history of paroxysmal atrial fibrillation with left-sided face arm and leg concerning for CVA. Patient has no aphasia nor neglect so my suspicion for large vessel occlusion is low so I did not obtain a CTA. Given unclear onset of symptoms patient is not a tPA candidate. If his CT head is negative anticipate hospitalizing patient for MRI. If there is no obvious bleed will treat with aspirin. No fevers to suggest meningitis. Patient does have a cough possibility of pneumonia though is not hypoxic nor tachypneic. Will obtain a troponin to assess for ACS. Patient is not altered to suggest encephalitis. No history of recent emesis to suggest increased risk for electrolyte abnormalities. Will swab for COVID given current uptake in the community. I did not apply the hints exam as patient is not having any nystagmus at the moment. Will reassess following labs and imaging. No history of multiple sclerosis so doubt MS flare. No weakness to suggest Guillain-Parker?. Patient may have intermittent TIA versus missed CVA. 6:21 PM No obvious bleed on preliminary CT head interpretation. Negative troponin. Comprehensive metabolic panel with no JOSE. Mild hypercalcemia for which patient received 500 cc of crystalloid. No acute electrolyte abnormalities. Normal magnesium. CBC with no anemia thrombocytopenia nor leukocytosis. 7:11 PM Urinalysis nitrite negative reassuring against UTI. 7:42 PM No evidence of acute transcortical infarct recent hemorrhage or hydrocephalus. No acute process. 7:50 PM Chest x-ray read as negative. I met with the patient and explained my recommendation for patient to be hospitalized for an MRI. His symptoms had resolved. He requested to be discharged. I explained that there was certainly a risk that he could have had a CVA and that an MRI would be helpful to assess his ongoing needs for antiplatelet agents and ongoing telemetry could assess for need for anticoagulation given his history of paroxysmal atrial fibrillation. He withdrew his consent for care and requested discharge. 1. I explained the current situation and condition to the patient. 2. I explained the recommended treatment for this condition -hospitalization for MRI 3. I explained the risk of not having the recommended treatment -recurrent symptoms concerning for possible TIA versus CVA 4. The patient understands this information has no questions, and repeated back this information. 5. The patient states that they need to leave and will return if symptoms worsen or he develops any weakness 6. Mental status is lucid and the patient has decision-making capacity. 7. Patient is withdrawing his consent for care Chronic conditions affecting the care of the patient: TOVA hyperlipidemia hypertension paroxysmal atrial fibrillation. History obtained from an outside historian: N/A External record review: [facility] EMR [Diagnostic interpretations performed by me:] [Per my independent interpretation chest x-ray shows:] Mildly increased interstitial markings bilaterally on two-view chest preliminary ED interpretation. [Per my independent interpretation EKG shows:] Narrow complex normal sinus rhythm at a rate of 80. Normal axis. Intervals within normal limits. No ST segment abnormalities. No T wave inversions. Appears similar to prior. Prior dated earlier this month. Medications: N/A Social determinants of health affecting disposition: Undomiciled lives in car Management discussed with: N/A Treatment/interventions considered: Hospitalization but deferred based on patient preference Response to therapies provided: N/A Related Data Home Medications Medication Instructions Recorded Confirmed albuterol sulfate 90 mcg/actuation 2 puff inhalation Q4H PRN PRN 08/04/20 01/09/23 aerosol inhaler (Ventolin HFA) aspirin 81 mg tablet,delayed 81 mg PO DAILY 08/04/20 01/09/23 release (Colleen Low Dose Aspirin) budesonide-formoterol HFA 160 2 puff inhalation BID 08/04/20 01/09/23 mcg-4.5 mcg/actuation aerosol inhaler (Symbicort) citalopram 40 mg tablet 40 mg PO DAILY 08/04/20 01/09/23 cyclosporine 0.05 % eye drops in a 1 drp ophthalmic (eye) BID 08/04/20 01/09/23 dropperette (Restasis) nitroglycerin 0.4 mg sublingual 0.4 mg sublingual PRN PRN 08/04/20 01/09/23 tablet cholecalciferol (vitamin D3) 25 25 mcg PO DAILY 10/27/22 01/09/23 mcg (1,000 unit) capsule (Vitamin D3) citalopram 10 mg tablet 10 mg PO DAILY 10/27/22 01/09/23 diltiazem HCl 240 mg capsule,24 240 mg PO DAILY 10/27/22 01/09/23 hr,extended release fenofibrate micronized 67 mg 67 mg PO DAILY 10/27/22 01/09/23 capsule metoprolol succinate 50 mg 50 mg PO DAILY 10/27/22 01/09/23 tablet,extended release 24 hr prednisone 20 mg tablet 20 mg PO DAILY #8 tabs 10/27/22 01/09/23 amlodipine 2.5 mg tablet 2.5 mg PO DAILY 04/10/23 bupropion HCl 150 mg 24 hr tablet, 150 mg PO DAILY 04/10/23 extended release eszopiclone 2 mg tablet 2 mg PO QHS PRN 04/10/23 famotidine 40 mg tablet 40 mg PO DAILY 04/10/23 folic acid 1 mg tablet 1 mg PO DAILY 04/10/23 metoprolol tartrate 100 0.5 tab PO DAILY 04/10/23 mg-hydrochlorothiazide 25 mg tablet mirtazapine 7.5 mg tablet 7.5 mg PO DAILY 04/10/23 pantoprazole 40 mg tablet,delayed 40 mg PO DAILY 04/10/23 release trazodone 50 mg tablet 50 mg PO DAILY 04/10/23 Previous Rx's Medication Instructions Recorded prednisone 20 mg tablet 20 mg PO DAILY #8 tabs 10/27/22 Allergies Allergy/AdvReac Type Severity Reaction Status Date / Time sulfamethoxazole Allergy Severe Anaphylaxsi Unverified 06/07/23 18:28 [From Bactrim] s trimethoprim [From Bactrim] Allergy Severe Anaphylaxsi Unverified 06/07/23 18:28 s General Stated Complaint: CVA/TIA POLA: 2 PFSH All Active Problems (Updated 06/20/23 @ 18:25 by Yuri Yo MD) Chest pain (Acute) Numbness on left side (Acute) Hypercalcemia (Acute) Raynaud disease (Acute) Paroxysmal atrial fibrillation (Acute) TOVA (obstructive sleep apnea) (Chronic) Illiteracy (Acute) HLD (hyperlipidemia) (Acute) History of smoking (Acute) COPD (chronic obstructive pulmonary disease) (Chronic) Depression (Chronic) GERD (gastroesophageal reflux disease) (Chronic) ADHD (Acute) Asthma (Chronic) COVID-19 (Acute) Dermatitis (Acute) Chest pain (Acute) Medical History Atrial fibrillation HTN (hypertension) Hx of hyperlipidemia Surgical History Hx of lithotripsy Social History Smoking/Tobacco Use Status: Former Tobacco Use Quit Date: 09/10/22 Smoking risk assessment performed?: Yes Alcohol Intake: never Drug use: Never Substance use type: does not use Housing: apartment Do you feel safe at home: Yes Do you feel safe in your relationship?: Yes Course Vital Signs Vital signs: Vital Signs Temperature 36.7 C 06/20/23 17:38 Pulse 82 06/20/23 17:38 Respiratory Rate 18 06/20/23 17:38 Blood Pressure 152/80 H 06/20/23 17:38 Pulse Oximetry 98 06/20/23 17:38 Temperature 36.7 C 06/20/23 17:38 Pulse 82 06/20/23 17:38 Respiratory Rate 18 06/20/23 17:38 Respiratory Effort Normal, Non-Labored 06/20/23 17:48 Blood Pressure 152/80 H 06/20/23 17:38 Blood Pressure Position Supine 06/20/23 17:38 Pulse Oximetry 98 06/20/23 17:38 Oxygen Delivery Method Room Air 06/20/23 17:38 Oxygen Flow Rate 0 06/20/23 17:38 Pain Level 5 06/20/23 17:38
[2023-06-20 18:04] LABS: Abs Immature Grans 0.04 10^3/uL (0.0-0.06); Absolute Basophil Count 0.08 10^3/uL (0.0-0.2); Absolute Lymphocyte Count 2.05 10^3/uL (1.2-3.4); Absolute Monocyte Count 0.61 10^3/uL (0.1-0.8); Absolute Neutrophil Count 4.69 10^3/uL (1.2-6.7); Eosinophils % 3.9; HCT 38.5 % (40.0-50.0); HGB 13.5 g/dL (13.5-17.5); Immature Grans % 0.5; Lymphocytes % 26.4; MCH 31.3 pg (27.0-33.0); MCHC 35.1 % (32.0-36.0); MCV 89 fL (80-95); MPV 10.1 fL (8.0-11.0); Monocytes % 7.9; Neutrophils % 60.3; Platelet Count 259 10^3/uL (130-400); RBC 4.31 10^6/uL (4.36-5.78); RDW 12.2 % (11.8-14.1); RDW-SD 39.8 fL; WBC 7.77 10^3/uL (4.4-10.8)
[2023-06-20 18:17] LABS: ALT 60 U/L (16-63); AST 49 U/L (15-37); Albumin 4.1 g/dL (3.4-5.0); Alkaline Phosphatase 77 U/L (46-116); Anion Gap 6.7 mmol/L (3-11); BUN 16 mg/dL (7-18); Bilirubin, Total 0.3 mg/dL (0.2-1.0); CO2 29.3 mmol/L (21.0-32.0); CREATININE 1.1 mg/dL (0.70-1.30); Calcium 10.3 mg/dL (8.5-10.1); Chloride 104 mmol/L (98-107); Estimated GFR 79.77 (mL/min/1.73m2); Glucose 118 mg/dL (74-106); Sodium 140 mmol/L (136-145); Total Protein 7.7 g/dL (6.4-8.2); Troponin I < 50 ng/L (<or=60)
[2023-06-20] MEDS: Normal Saline 500 ML IV (18:52)
[2023-06-20 19:00] LABS: Bilirubin Negative (Negative); Blood Negative (Negative); Clarity Clear (Clear); Glucose Negative (Negative); Ketones Negative (Negative); Leukocyte Esterase Negative (Negative); Nitrite Negative (Negative); Specific Gravity 1.025 (1.005-1.025); Urobilinogen 0.2 mg/dL (Up to 0.2); pH 6.5 (5-8)
--- NOTE | 2023-06-20 19:41 | DI.VRAD_ITS ---
PROCEDURE INFORMATION: Exam: CT Head Without Contrast Exam date and time: 06/20/2023 6:13 PM Age: 53 years old Clinical indication: Other: Headache, left side numbness TECHNIQUE: Imaging protocol: Computed tomography of the head without contrast. COMPARISON: CT HEAD WO 08/20/2022 7:02 PM FINDINGS: Brain: Cerebral sulci show bilateral symmetry with no supratentorial mass or mass effect detected. Brainstem and cerebellum are unremarkable. There is no evidence of acute transcortical infarction or recent intracranial hemorrhage. Cerebral ventricles: Ventricular and cisternal spaces are normal in size and configuration and there is no midline shift or hydrocephalus seen. Paranasal sinuses: Grossly clear throughout. Mastoid air cells: Grossly clear bilaterally. Bones/joints: Bony calvarium and skull base are intact and no acute fractures are detected. Soft tissues: Unremarkable. IMPRESSION: No evidence of acute transcortical infarction, recent intracranial hemorrhage or hydrocephalus. No acute intracranial process is detected. Dictated and Authenticated by: Olvin Mauricio MD. Ordering:TRENT Ferrer MD
--- NOTE | 2023-06-20 19:42 | DI.VRAD_ITS ---
PROCEDURE INFORMATION: Exam: XR Chest Exam date and time: 06/20/2023 6:10 PM Age: 53 years old Clinical indication: Other: Numbness TECHNIQUE: Imaging protocol: Radiologic exam of the chest. Views: 2 views. COMPARISON: CR XR CHEST 2V PA LATERAL 06/07/2023 7:14 PM FINDINGS: Lungs: Lungs remain grossly clear throughout with no mass or consolidation detected. Pleural spaces: No pneumothorax or pleural effusion is seen. Heart/Mediastinum: Heart size is normal and vessel margins are sharply defined. Bones/joints: No acute osseous lesions are detected. IMPRESSION: No acute findings. Dictated and Authenticated by: Olvin Mauricio MD. Ordering:TRENT Ferrer MD
== END 2023-06-20 20:18 | disposition left against medical advice (07) ==
PROVIDERS: Registered Nurse Emergency; Emergency Provider Emergency Medicine; PCP Physician Assistant Medical
DX: R20.0 Anesthesia of skin (principal); R51.9 Headache, unspecified; E83.52 Hypercalcemia; R48.0 Dyslexia and alexia; E78.5 Hyperlipidemia, unspecified; I10 Essential (primary) hypertension; Z87.891 Personal history of nicotine dependence
CPT/HCPCS: 80053; 82962; 93005; 99284; 70450; 71046; 81003; 83735; 84484; 85025; 93010

== ENCOUNTER → 2023-07-06 00:35 | Outpatient (CLI) | payer MEDICARE, MEDICAID, SELFPAY ==
--- NOTE | 2023-07-06 07:30 | DI.US_ITS ---
APPROVED REPORT EXAM: Comprehensive 2D, Doppler, and color-flow Echocardiogram Patient Location: Out-Patient Real Estate Sales Manager: Makayla Liu RDCS (AE) Indications: Atherosclerotic heart disease, wo angina pectoris Other Information Study Quality: Adequate Conclusion Normal left ventricular wall thickness and chamber size. Ejection fraction is 60%. Wall motion is n ormal Normal right ventricular size and systolic function Both atria are normal in size There is no structural or hemodynamically significant valvular disease Right ventricular systolic pressure could not be estimated Wall motion Left Ventricle The left ventricle is normal size. The left ventricular systolic function is normal. The left ventric ular ejection fraction is within the normal range. There is normal left ventricular wall thickness. T here is normal LV segmental wall motion. There is no ventricular septal defect visualized. LVEF is 60 %. Right Ventricle The right ventricle is normal size. The right ventricular systolic function is normal. Atria The left atrium size is normal. The right atrium size is normal. The interatrial septum is intact wit h no evidence for an atrial septal defect. Aortic Valve The aortic valve is normal in structure. Aortic valve is trileaflet. There is no aortic valvular sten osis. No aortic regurgitation is present. Mitral Valve The mitral valve is normal in structure. No evidence of mitral valve stenosis. Trace mitral regurgita tion. Tricuspid Valve The tricuspid valve is normal in structure. There is no tricuspid valve stenosis. Trace tricuspid reg urgitation. Pulmonic Valve The pulmonary valve is normal in structure. There is no pulmonic valvular stenosis. Mild pulmonic reg urgitation. Great Vessels The aortic root is normal in size. The ascending aorta is normal in size. Aortic arch is normal in ca liber. The IVC was not well visualized. Pericardium There is no pericardial effusion. 2D Dimensions IVSD d PLAX 0.96 cm M: 0.6-1.2 Ao Root d 3.17 cm M: 3.1 - 3.7 LVPW d PLAX 0.99 cm M: 0.6 - 1.2 Ao Asc Diam d 2.89 cm M: 2.6 - 3.4 LVID d PLAX 3.99 cm M: 4.2 - 5.8 LVDs 2.83 cm M: 2.5 - 4.0 LV EF Teichholz 56.4 % FS 29.05 % LV EDV (Teich) 69.4 mL LV ESV (Teich) 30.3 mL M-Mode TAPSE 2.36 cm (M/F) >1.7 Auto EF LV EDV A4C 106.6 mL LV EDV A2C 99.5 mL LV EDV BP 106.4 mL LV ESV A4C 48.4 mL LV ESV A2C 44.3 mL LV ESV BP 47.1 mL LVEF(%) A4C 54.5 % LVEF(%) A2C 55.5 % LVEF(%) BP 55.7 % LV SV A4C 58.1 ml LV SV A2C 55.2 ml LV SV BP 59.3 ml LV CO A4C 3.9 L/min LV CO A2C 3.8 L/min LV CO BP 3.9 L/min HR A4C 67.17 BPM HR A2C 69.37 BPM LV EDV Index (BP) LA Volume LA Length A4C 4.7 cm LA Length A2C 5.2 cm LA Area A4C s 12.59 cm2 LA Area A2C s 15.26 cm2 LA Vol A4C A-L 28.35 mL LA Vol A2C A-L 38.16 mL LA Vol Biplane A-L 34.4 mL LA Vol/BSA A4C A-L LA Vol/BSA A2C A-L LA Vol/BSA BP A-L 18.3 mL/m2 LA Vol A4C MOD 27.1 mL LA Vol A2C MOD 36.2 mL LA Vol BP MOD 32.6 mL RA Volume RA Area A4C 11.8 cm2 RA ESV A4C (A-L) 25.6mL RA Vol/BSA A4C A-L RA Length A4C 4.7 cm RA ESV A4C (MOD) 22.8mL LV Diastology MV E' medial 0.092 (>0.07 m/s) MV E Vmax 0.78 (0.4-1.3 m/s) MV E/E' MED 8.42 (<14) MV A Vmax 0.90 (0.4-1.3 m/s) MV E' lateral 0.082 (>0.1 m/s) E/A Ratio 0.9 MV E/E' LAT 9.42 (<14) MV E' Average 0.087 m/s MV E/E'(average) 8.89 Aortic Valve AoV Vmax 1.33 m/s LVOT Vmax 1.09 m/s AoV Peak Grad 7.1 mmHg LVOT Peak Grad 4.7 mmHg AoV Area (Vmax) 2.51 cm2 LVOT VTI 0.225 m AoV VTI 0.260 m LVOT Mean Grad 2.6 mmHg AoV Mean David. 0.91 m/s LVOT SV 69.24 mL AoV Mean Grad 3.8 mmHg LVOT Diam s 1.95 cm AoV Area (VTI) 2.67 cm2 Velocity Ratio 0.82 Mitral Valve MV DT 210 (160-240 msec) Pulmonary Valve PV Vmax 1.12 (0.5-1.5 m/s) RVOT Vmax 0.75 m/s PV Peak Grad 5.0 mmHg RVOT Peak Gr. 2.2 mmHg PV Mean David 0.83 m/s RVOT VTI 0.157 m PV Mean Grad 3.0 mmHg RVOT Mean Gr. 1.3 mmHg Tricuspid Valve TV S' 0.14 m/s
== END ==
PROVIDERS: PCP Physician Assistant Medical; Visit Provider Physician Assistant Medical
DX: I25.10 Atherosclerotic heart disease of native coronary artery without angina pectoris (principal)
CPT/HCPCS: 93306

== ENCOUNTER 2023-07-13 09:26 | Outpatient (CLI) | payer MEDICARE, MEDICAID, SELFPAY ==
--- NOTE | 2023-07-13 09:15 | RT.EKG_ITS ---
APPROVED REPORT Exam: Resting ECG Reason for Exam: afib Patient Location: O HR:77 bpm ECG Measurements Heart Rate 77 AXIS IL 192 P -7 QRSd 87 QRS 43 QT 367 T 34 QTc 416 Conclusion Sinus rhythm...normal P axis, V-rate 50- 99 Atrial premature complexes...SV complexes w/ short R-R intvls Otherwise normal ECG Baseline wander in lead(s) II,V2,V3,V4,V5,V6
== END 2023-07-13 09:27 | disposition home or self-care (01) ==
LOC: DI.CARD 09:27
PROVIDERS: PCP Physician Assistant Medical; Visit Provider Internal Medicine Cardiovascular Disease
DX: I48.0 Paroxysmal atrial fibrillation (principal)
CPT/HCPCS: 93010

== ENCOUNTER → 2023-07-13 13:42 | Outpatient (BNVA) | payer MEDICARE, MEDICAID, SELFPAY | PROVIDERS: PCP Physician Assistant Medical; Visit Provider Internal Medicine Cardiovascular Disease | DX: R07.89 Other chest pain (principal); I48.0 Paroxysmal atrial fibrillation | CPT/HCPCS: 93005; 99212 ==

== ENCOUNTER 2023-07-31 07:10 | Emergency (ER) | payer MEDICARE, MEDICAID, SELFPAY ==
[2023-07-31 07:14] VITALS: BP 151/71; PULSE 76; RESP 15; TEMP 36.8; O2SAT 98
--- NOTE | 2023-07-31 07:57 | ED.GENADUL_ITS ---
Discharge Plan Disposition Patient Disposition: Home Discharge Details Clinical Impression: Dermatitis Primary Care Provider: Radha Johnson ED Provider: Kain Garcia Home Meds and New Rx's Prescriptions: New prednisone 20 mg tablet 40 mg PO DAILY 5 Days Qty: 10 0RF Continued amlodipine 2.5 mg tablet 2.5 mg PO DAILY Patient Comments: 07/17/23 Per PCP med list RH bupropion HCl 150 mg tablet extended release 24 hr 150 mg PO DAILY Patient Comments: 07/17/23 Per PCP med list RH colchicine (gout) 0.6 mg tablet 0.6 mg PO BID Patient Comments: 07/17/23 Per PCP med list RH famotidine 40 mg tablet 40 mg PO DAILY Patient Comments: 07/17/23 Per PCP med list RH folic acid 0.8 mg capsule 400 mcg PO DAILY Patient Comments: 07/17/23 Per PCP med list RH pantoprazole 40 mg tablet,delayed release (DR/EC) 40 mg PO DAILY trazodone 50 mg tablet 50 mg PO DAILY aspirin [Colleen Low Dose Aspirin] 81 mg Tablet,Delayed Release (Dr/Ec) 81 mg PO DAILY nitroglycerin 0.4 mg Tablet, Sublingual 0.4 mg sublingual PRN PRN albuterol sulfate [Ventolin HFA] 90 mcg/actuation Hfa Aerosol Inhaler 2 puff INHALATION Q4H PRN PRN cyclosporine [Restasis] 0.05 % Dropperette 1 drp ophthalmic (eye) BID budesonide-formoterol [Symbicort] 160-4.5 mcg/actuation Hfa Aerosol Inhaler 2 puff INHALATION BID citalopram 10 mg Tablet 10 mg PO DAILY Rx Instructions: with a 40 mg tablet diltiazem HCl 240 mg Capsule,Extended Release 24 Hr 240 mg PO DAILY fenofibrate micronized 67 mg Capsule 67 mg PO DAILY cholecalciferol (vitamin D3) [Vitamin D3] 25 mcg (1,000 unit) Capsule 25 mcg PO DAILY escitalopram oxalate 20 mg tablet 20 mg PO DAILY Patient Comments: TAKE ONE TABLET BY MOUTH EVERY DAY Discharge Instructions Instructions: Prednisone (By mouth), Dermatitis (ED) Additional Instructions: You were seen in the emergency department for your rash after cleaning an apartment that had problems with infestation. This is unlikely to be a chemical exposure. Some of your lesions resemble bedbug bites. Please isolate all possible exposed clothing and your bedding in a sealed garbage bag for 72 hours and then wash with hot water. As we discussed, obtain topical Benadryl/diphenhydramine, topical hydrocortisone cream, Aspercreme and apply these as directed on manufacturing label for relief of symptoms. I have also sent a 5-day course of oral steroids to [facility] in [place]. If this is not better after the 5 days I think you need to be seen again, by urgent care with possible empiric treatment for permethrin with further rashes to the webspaces of your finger for empiric scabies treatment. Please return to the emergency department for any fevers, nausea, vomiting, drainage of pus from any of the lesions. Referrals: Radha Johnson [Primary Care Provider] - Medical Decision Making This dictation utilizes [id number] dictation software and may contain unedited grammatical errors. 53 y/o M presents to ED today with a chief complaint of rash to R 4/5th web space, forearms, and calves. Onset and characteristics include onset after cleaning an apartment that had been treated by pest services for fleas- states no known bed bugs, states the rash is very itchy. States he did handle the flea bombs with his bare hands and noticed immediate pruritis. Patient has relevant history of dermatitis. Family and social history: noncontributory. Pertinent exam findings / vital signs include maculopapular rash scantly to the bilateral medial calves as well as bilateral volar forearms and the right fourth fifth web space, a couple of these lesions have a linear track suspicious for infestation, no overt underlying macular cellulitis or lopez induration or fluctuant swellings or purulent drainage. Differential / pathologies of concern include bed bugs, flea infestation, scabies, chemical exposure. Diagnostic studies of: -none. Interventions of: -none. ED Course: No acute complications in ED stay, simple uncomplicated illness without systemic symptoms. Findings not consistent with cellulitis/abscess, staph lesions, vitals stable do not suspect systemic involvement. Disposition of Dermatitis. Assessment/Plan: Counseled the patient on possibility of bedbugs and isolating his clothing for 72 hours, I also discussed the possibility of scabies with his webspace involvement but he also handled pesticides. I counseled him on thoroughly was arielle his bedding with hot water and isolating any clothing in a sealed garbage bag for 72 hours. I advised on empiric treatment with various topical [id number]'s including diphenhydramine and hydrocortisone and Aspercreme for pain relief, I counseled him that we would trial 5 days of p.o. steroids but if this was not effective to follow-up with the urgent care for possible empiric treatment for scabies especially with further webspace involvement. Patient verbalized understanding of the plan and return to ED criteria and engaged in shared decision making. Medical Records Medical records reviewed: Yes I reviewed the patient's medical records. HPI General Date/Time Provider Initiated Documentation: 07/31/23 07:32 . HPI Narrative: 53 year-old male presents to ED today by POV/ambulating with a chief complaint of rash, itching with onset for the past few days, he recently cleaned an apartment that had flea bombs, in it, handled the pesticides himself, and now has rash to web space, bilateral forearms and calves. Quality described as itchy, no radiation to drainage, vesicular lesions, fever, erythematous base to race, swelling. Severity is described as 7-8/10. Palliating factors include nothing specific attempted. Provoking factors include nothing specific. Events leading up to the incident/Associated Symptoms: Patient denies knowledge of bed bugs to this apartment. Patient not anticoagulated. Related Data Home Medications Medication Instructions Recorded Confirmed albuterol sulfate 90 mcg/actuation 2 puff inhalation Q4H PRN PRN 08/04/20 07/31/23 aerosol inhaler (Ventolin HFA) aspirin 81 mg tablet,delayed 81 mg PO DAILY 08/04/20 07/31/23 release (Colleen Low Dose Aspirin) budesonide-formoterol HFA 160 2 puff inhalation BID 08/04/20 07/31/23 mcg-4.5 mcg/actuation aerosol inhaler (Symbicort) cyclosporine 0.05 % eye drops in a 1 drp ophthalmic (eye) BID 08/04/20 07/31/23 dropperette (Restasis) nitroglycerin 0.4 mg sublingual 0.4 mg sublingual PRN PRN 08/04/20 07/31/23 tablet cholecalciferol (vitamin D3) 25 25 mcg PO DAILY 10/27/22 07/31/23 mcg (1,000 unit) capsule (Vitamin D3) citalopram 10 mg tablet 10 mg PO DAILY 10/27/22 07/31/23 diltiazem HCl 240 mg capsule,24 240 mg PO DAILY 10/27/22 07/31/23 hr,extended release fenofibrate micronized 67 mg 67 mg PO DAILY 10/27/22 07/31/23 capsule pantoprazole 40 mg tablet,delayed 40 mg PO DAILY 04/10/23 07/31/23 release trazodone 50 mg tablet 50 mg PO DAILY 04/10/23 07/31/23 amlodipine 2.5 mg tablet 2.5 mg PO DAILY 07/17/23 07/31/23 bupropion HCl 150 mg 24 hr tablet, 150 mg PO DAILY 07/17/23 07/31/23 extended release colchicine (gout) 0.6 mg tablet 0.6 mg PO BID 07/17/23 07/31/23 famotidine 40 mg tablet 40 mg PO DAILY 07/17/23 07/31/23 folic acid 0.8 mg capsule 400 mcg PO DAILY 07/17/23 07/31/23 escitalopram oxalate 20 mg tablet 20 mg PO DAILY 07/31/23 07/31/23 prednisone 20 mg tablet 40 mg (2 x 20 mg) PO DAILY 07/31/23 dermatitis 5 days #10 tabs Previous Rx's Medication Instructions Recorded prednisone 20 mg tablet 40 mg (2 x 20 mg) PO DAILY 07/31/23 dermatitis 5 days #10 tabs Allergies Allergy/AdvReac Type Severity Reaction Status Date / Time sulfamethoxazole Allergy Severe Anaphylaxsi Unverified 07/31/23 07:17 [From Bactrim] s trimethoprim [From Bactrim] Allergy Severe Anaphylaxsi Unverified 07/31/23 07:17 s General Stated Complaint: RashLesion POLA: 4 Review of Systems All systems reviewed & are unremarkable except as noted in HPI and below PFSH All Active Problems (Updated 07/31/23 @ 08:03 by SAVANNA Michael) Dermatitis (Acute) Raynaud disease (Acute) Paroxysmal atrial fibrillation (Acute) TOVA (obstructive sleep apnea) (Chronic) Illiteracy (Acute) HLD (hyperlipidemia) (Acute) History of smoking (Acute) COPD (chronic obstructive pulmonary disease) (Chronic) Depression (Chronic) GERD (gastroesophageal reflux disease) (Chronic) ADHD (Acute) Asthma (Chronic) COVID-19 (Acute) Dermatitis (Acute) Chest pain (Acute) Medical History Atrial fibrillation Hx of hyperlipidemia HTN (hypertension) Surgical History Hx of lithotripsy Social History Smoking/Tobacco Use Status: Former Tobacco Use Quit Date: 09/10/22 Smoking risk assessment performed?: Yes Alcohol Intake: never Drug use: Never Substance use type: does not use Housing: apartment Do you feel safe at home: Yes Do you feel safe in your relationship?: Yes Exam Narrative Exam Narrative: GENERAL APPEARANCE: Well-nourished, non-toxic, awake and alert, atraumatic, no acute distress. SKIN: Warm, pink, dry, maculopapular lesions to bilateral calves with a couple of these skin lesions being in a linear fashion, webspace of the right fourth and fifth finger has some maculopapular rash as well as mildly to forearms with 1 linear superficial maculopapular rash here consistent with likely infestation. HEAD: Normocephalic, atraumatic, normal hair distribution for gender/age. EYES: Pupils PERRLA, EOMs intact without nystagmus, normal conjunctiva, no exudates on lids/lashes. ENT: Nares patent, no circumoral cyanosis, no facial swelling NECK: Supple, trachea midline, painless cervical ROM. LUNGS/CHEST: Non-labored respirations, normal A/P diameter, symmetrical expansi on, no chest wall deformity HEART (CV/PV): Regular rate, radial pulses 2+ bilat, no peripheral edema, no JVD. ABDOMEN: Soft, non-distended, no guarding. MSK: Normal ROM, no swelling/deformity to bilateral UEs or LEs, moving all extremities without weakness, no cyanosis, spine midline without tenderness, normal curvature. NEURO: Mental Status AAOx4 - alert to person, place, time, events No facial droop, no forehead involvement. Motor: No focal weakness - strength 5/5 in bilateral UEs and LEs, proximal and distal, symmetric. Sensory: sensation intact to light touch globally. Gait normal: patient ambulated without ataxia into ED room. PSYCH: euthymic, cooperative, pleasant, appropriate speech Course Vital Signs Vital signs: Vital Signs Temperature 36.8 C 07/31/23 07:14 Pulse 76 07/31/23 07:14 Respiratory Rate 15 07/31/23 07:14 Blood Pressure 151/71 H 07/31/23 07:14 Pulse Oximetry 98 07/31/23 07:14 Temperature 36.8 C 07/31/23 07:14 Temperature Source Temporal Artery Scan 07/31/23 07:14 Pulse 76 07/31/23 07:14 Respiratory Rate 15 07/31/23 07:14 Respiratory Effort Normal 07/31/23 07:16 Blood Pressure 151/71 H 07/31/23 07:14 Blood Pressure Position Sitting 07/31/23 07:14 Pulse Oximetry 98 07/31/23 07:14 Oxygen Delivery Method Room Air 07/31/23 07:14 Oxygen Flow Rate 0 07/31/23 07:14 Pain Level 2 07/31/23 07:14
== END 2023-07-31 08:13 | disposition home or self-care (01) ==
PROVIDERS: Emergency Provider Physician Assistant; PCP Physician Assistant Medical
DX: L30.9 Dermatitis, unspecified (principal); I48.0 Paroxysmal atrial fibrillation; I10 Essential (primary) hypertension; E78.5 Hyperlipidemia, unspecified; J44.9 Chronic obstructive pulmonary disease, unspecified; Z79.82 Long term (current) use of aspirin; Z87.891 Personal history of nicotine dependence
CPT/HCPCS: 99282

== ENCOUNTER 2023-10-16 16:55 | Emergency (ER) | payer MEDICARE, MEDICAID, SELFPAY ==
[2023-10-16 17:24] VITALS: BP 121/88; PULSE 65; RESP 16; TEMP 36.6; O2SAT 99
[2023-10-16 19:45] VITALS: BP 134/79; PULSE 63; RESP 16; TEMP 36.6; O2SAT 98
--- NOTE | 2023-10-16 20:41 | ED.GENADUL_ITS ---
HPI General Mode of arrival: ambulatory . Date/Time Provider Initiated Documentation: 10/16/23 16:59 . Limitations to Documentation: no limitations . Information obtained by: patient . HPI Narrative: Patient presents with complaints of generalized headache he states have been present for almost a year. He states he has seen other providers with no diagnosis. He does tell triage nurse he is concerned because his friend just found out they had an aneurysm. He denies visual disturbance. He has had no fever or chills. He does report some light sensitivity. He states he took ibuprofen with no improvement in his symptoms. He denies any head injury recently but states he has had multiple head injuries in the past. Related Data Home Medications Medication Instructions Recorded Confirmed albuterol sulfate 90 mcg/actuation 2 puff inhalation Q4H PRN PRN 08/04/20 10/16/23 aerosol inhaler (Ventolin HFA) aspirin 81 mg tablet,delayed 81 mg PO DAILY 08/04/20 10/16/23 release (Colleen Low Dose Aspirin) budesonide-formoterol HFA 160 2 puff inhalation BID 08/04/20 10/16/23 mcg-4.5 mcg/actuation aerosol inhaler (Symbicort) cyclosporine 0.05 % eye drops in a 1 drp ophthalmic (eye) BID 08/04/20 10/16/23 dropperette (Restasis) nitroglycerin 0.4 mg sublingual 0.4 mg sublingual PRN PRN 08/04/20 10/16/23 tablet cholecalciferol (vitamin D3) 25 25 mcg PO DAILY 10/27/22 10/16/23 mcg (1,000 unit) capsule (Vitamin D3) citalopram 10 mg tablet 10 mg PO DAILY 10/27/22 10/16/23 diltiazem HCl 240 mg capsule,24 240 mg PO DAILY 10/27/22 10/16/23 hr,extended release fenofibrate micronized 67 mg 67 mg PO DAILY 10/27/22 10/16/23 capsule trazodone 50 mg tablet 50 mg PO DAILY 04/10/23 10/16/23 amlodipine 2.5 mg tablet 2.5 mg PO DAILY 07/17/23 10/16/23 bupropion HCl 150 mg 24 hr tablet, 150 mg PO DAILY 07/17/23 10/16/23 extended release famotidine 40 mg tablet 40 mg PO DAILY 07/17/23 10/16/23 Allergies Allergy/AdvReac Type Severity Reaction Status Date / Time sulfamethoxazole Allergy Severe Anaphylaxsi Unverified 10/16/23 17:30 [From Bactrim] s trimethoprim [From Bactrim] Allergy Severe Anaphylaxsi Unverified 10/16/23 17:30 s General Stated Complaint: GenMedical POLA: 4 Review of Systems All systems reviewed & are unremarkable except as noted in HPI and below Exam Const General: cooperative and no acute distress Orientation: alert, awake and oriented x3 HENMT Head: normal to inspection Mouth: oral mucosae normal Eyes General: appearance normal, both eyes and all related structures Neck Neck: normal visual inspection Resp Effort & Inspection: normal respiratory effort and able to speak in complete sentences Auscultation: clear to auscultation bilaterally Cardio Rate: regular rate Rhythm: regular rhythm Skin General skin exam: no rashes or lesions noted Neuro General: patient alert, patient awake and patient oriented x3 Motor: muscle tone normal throughout Psych Appearance: grossly normal Affect: normal affect Course Vital Signs Vital signs: Vital Signs Temperature 36.6 C 10/16/23 17:24 Pulse 65 10/16/23 17:24 Respiratory Rate 16 10/16/23 17:24 Blood Pressure 121/88 10/16/23 17:24 Pulse Oximetry 99 10/16/23 17:24 Temperature 36.6 C 10/16/23 19:45 Temperature Source Tympanic 10/16/23 19:45 Pulse 63 10/16/23 19:45 Respiratory Rate 16 10/16/23 19:45 Blood Pressure 134/79 10/16/23 19:45 Blood Pressure Position Sitting 10/16/23 17:24 Pulse Oximetry 98 10/16/23 19:45 Oxygen Delivery Method Room Air 10/16/23 19:45 Oxygen Flow Rate 0 10/16/23 19:45 Comment charge nurse notified of vitals 10/16/23 19:45 Medical Decision Making Patient received acetaminophen 1000 mg orally and Toradol 30 mg IV push, he states these pain medications have not had any effect on his symptoms at all.. Inflammatory markers are negative. Doubt GCA. Discussed imaging with patient and he is requesting CT imaging insisting that something is different or concerning. I do think this is not necessary at this point after completing physical exam obtaining history and reviewing CT scan from May 2023 but using shared decision making CT obtained and unremarkable. Patient is safe for discharge to home and should follow-up with his primary care provider Medical Records Medical records reviewed: Yes I reviewed the patient's medical records. Imaging Data Radiologic Study: Imaging: CT Scan Radiologist's impression: Exam(s) PROCEDURE INFORMATION: Exam: CT Head Without Contrast Exam date and time: 10/16/2023 10:27 PM Age: 53 years old Clinical indication: Pain; Headache TECHNIQUE: Imaging protocol: Computed tomography of the head without contrast. COMPARISON: CT HEAD WO 06/20/2023 6:13 PM FINDINGS: Brain: Cerebrum is unremarkable. Arias-white matter differentiation is intact. No mass lesion is seen. No mass effect or midline shift. Thalamus is unremarkable. No evidence of hemorrhage. Cerebellum is unremarkable. No posterior fossa mass lesion or mass effect. No pathologic edema. No evidence of cerebellar hemorrhage. Cerebral ventricles: No ventriculomegaly. Paranasal sinuses: Visualized sinuses are unremarkable. No fluid levels. Mastoid air cells: Visualized mastoid air cells are well aerated. Bones/joints: Unremarkable. No acute fracture. Soft tissues: Unremarkable. IMPRESSION: No evidence of pathology. Dictated and Authenticated by: Emily Colmenares MD. Ordering:NILTON Meeks MD Lab Data Lab results reviewed: Yes I reviewed the patient's lab results. Quality:SDOH Health Related Social Needs: No Data to Display PFSH All Active Problems (Updated 10/16/23 @ 22:08 by Jeanna Griffin NP) Headache (Acute) Raynaud disease (Acute) Paroxysmal atrial fibrillation (Acute) TOVA (obstructive sleep apnea) (Chronic) Illiteracy (Acute) HLD (hyperlipidemia) (Acute) History of smoking (Acute) COPD (chronic obstructive pulmonary disease) (Chronic) Depression (Chronic) GERD (gastroesophageal reflux disease) (Chronic) ADHD (Acute) Asthma (Chronic) COVID-19 (Acute) Dermatitis (Acute) Chest pain (Acute) Medical History Atrial fibrillation Hx of hyperlipidemia HTN (hypertension) Surgical History Hx of lithotripsy Social History Smoking/Tobacco Use Status: Former Tobacco Use Quit Date: 09/10/22 Smoking risk assessment performed?: Yes Alcohol Intake: never Drug use: Never Substance use type: does not use Housing: apartment Do you feel safe at home: Yes Do you feel safe in your relationship?: Yes Discharge Plan Disposition Patient Disposition: Home Condition: Stable Discharge Details Clinical Impression: Headache Primary Care Provider: Radha Johnson ED Provider: Jeanna Griffin Home Meds and New Rx's Prescriptions: Continued amlodipine 2.5 mg tablet 2.5 mg PO DAILY Patient Comments: 07/17/23 Per PCP med list RH bupropion HCl 150 mg tablet extended release 24 hr 150 mg PO DAILY Patient Comments: 07/17/23 Per PCP med list RH famotidine 40 mg tablet 40 mg PO DAILY Patient Comments: 07/17/23 Per PCP med list RH trazodone 50 mg tablet 50 mg PO DAILY aspirin [Colleen Low Dose Aspirin] 81 mg Tablet,Delayed Release (Dr/Ec) 81 mg PO DAILY nitroglycerin 0.4 mg Tablet, Sublingual 0.4 mg sublingual PRN PRN albuterol sulfate [Ventolin HFA] 90 mcg/actuation Hfa Aerosol Inhaler 2 puff INHALATION Q4H PRN PRN cyclosporine [Restasis] 0.05 % Dropperette 1 drp ophthalmic (eye) BID budesonide-formoterol [Symbicort] 160-4.5 mcg/actuation Hfa Aerosol Inhaler 2 puff INHALATION BID citalopram 10 mg Tablet 10 mg PO DAILY Rx Instructions: with a 40 mg tablet diltiazem HCl 240 mg Capsule,Extended Release 24 Hr 240 mg PO DAILY fenofibrate micronized 67 mg Capsule 67 mg PO DAILY cholecalciferol (vitamin D3) [Vitamin D3] 25 mcg (1,000 unit) Capsule 25 mcg PO DAILY Discharge Instructions Instructions: General Headache (ED) Additional Instructions: Take ibuprofen and/or acetaminophen as directed for your symptoms Drink 6 to 8 glasses of water daily to stay well-hydrated Update your eye exam if you have not had one recently, within the last year Your CAT scan and lab work showed no acute pathology to explain your symptoms. Follow-up with your primary care provider Referrals: Radha Johnson [Primary Care Provider] - Discharge Data Discharge Date/Time-TO BE ENTERED AT DEPARTURE: 10/16/23 23:00
[2023-10-16 21:12] LABS: Abs Immature Grans 0.03 10^3/uL (0.0-0.06); Absolute Basophil Count 0.07 10^3/uL (0.0-0.2); Absolute Eosinophil Count 0.26 10^3/uL (0.0-0.7); Absolute Lymphocyte Count 2.56 10^3/uL (1.2-3.4); Absolute Monocyte Count 0.45 10^3/uL (0.1-0.8); Absolute Neutrophil Count 4.02 10^3/uL (1.2-6.7); Basophils % 0.9; Eosinophils % 3.5; HCT 39.4 % (40.0-50.0); HGB 13.7 g/dL (13.5-17.5); Immature Grans % 0.4; Lymphocytes % 34.6; MCH 30.4 pg (27.0-33.0); MCHC 34.8 % (32.0-36.0); MCV 88 fL (80-95); MPV 9.6 fL (8.0-11.0); Monocytes % 6.1; Neutrophils % 54.5; Platelet Count 246 10^3/uL (130-400); RDW 12.4 % (11.8-14.1); RDW-SD 39.7 fL; WBC 7.39 10^3/uL (4.4-10.8)
[2023-10-16] MEDS: Acetaminophen 500 MG TAB 1000 MG PO (21:12)
[2023-10-16] MEDS: Ketorolac 30 MG/ML VIAL IVP (21:12)
[2023-10-16 21:15] LABS: ESR 3 mm/hr (0-20)
[2023-10-16 21:26] LABS: BUN 9 mg/dL (7-18); C-Reactive Protein 0.16 mg/dL (0.0-0.3); CREATININE 1.1 mg/dL (0.70-1.30); Calcium 9.7 mg/dL (8.5-10.1); Chloride 105 mmol/L (98-107); Estimated GFR 79.77 (mL/min/1.73m2); Glucose 90 mg/dL (74-106); Potassium 4.2 mmol/L (3.5-5.1); Sodium 142 mmol/L (136-145)
--- NOTE | 2023-10-16 22:34 | DI.CT_ITS ---
Exam(s) CT HEAD WO EXAM: CT HEAD WO CLINICAL HISTORY: headache. TECHNIQUE: Imaging Protocol: Axial computed tomography images with coronal and sagittal reformatted images were created and reviewed COMPARISON: CT CT BRAIN NECK CTA from 02/09/[address] HEAD WO from 08/20/[address] HEAD WO from 06/20/2023 FINDINGS: Ventricles and Extra axial spaces: Normal in size and morphology for the patient's age. Hemorrhage: None. Cerebral parenchyma: Normal. There is no mass effect. Midline shift: None. Brainstem/Cerebellum: Normal. Calvarium: Normal. Visualized Paranasal sinuses/Mastoids: Clear. Soft Tissues: Unremarkable. IMPRESSION: No acute intracranial process. RADIATION DOSE DELIVERED: 618.65mGy.cm Total DLP DATA REPOSITORY: All CT scans at this facility are submitted to the National Radiology Data Registry (NRDR) Dose Index Registry (DIR) with the [employer] ([employer]). RADIATION OPTIMIZATION: All CT scans at this facility use at least one of these dose optimization te chniques: automated exposure control; mA and/or kV adjustment per patient size (includes targeted exa ms where dose is matched to clinical indication); or iterative reconstruction.
--- NOTE | 2023-10-16 22:43 | DI.VRAD_ITS ---
PROCEDURE INFORMATION: Exam: CT Head Without Contrast Exam date and time: 10/16/2023 10:27 PM Age: 53 years old Clinical indication: Pain; Headache TECHNIQUE: Imaging protocol: Computed tomography of the head without contrast. COMPARISON: CT HEAD WO 06/20/2023 6:13 PM FINDINGS: Brain: Cerebrum is unremarkable. Arias-white matter differentiation is intact. No mass lesion is seen. No mass effect or midline shift. Thalamus is unremarkable. No evidence of hemorrhage. Cerebellum is unremarkable. No posterior fossa mass lesion or mass effect. No pathologic edema. No evidence of cerebellar hemorrhage. Cerebral ventricles: No ventriculomegaly. Paranasal sinuses: Visualized sinuses are unremarkable. No fluid levels. Mastoid air cells: Visualized mastoid air cells are well aerated. Bones/joints: Unremarkable. No acute fracture. Soft tissues: Unremarkable. IMPRESSION: No evidence of pathology. Dictated and Authenticated by: Emily Colmenares MD. Ordering:NILTON Meeks MD
[2023-10-16 22:59] VITALS: BP 123/76; PULSE 64; RESP 18; O2SAT 99
== END 2023-10-16 23:00 | disposition home or self-care (01) ==
PROVIDERS: Emergency Provider Nurse Practitioner Acute Care; PCP Physician Assistant Medical
DX: R51.9 Headache, unspecified (principal); I48.91 Unspecified atrial fibrillation; I10 Essential (primary) hypertension; E78.5 Hyperlipidemia, unspecified; J44.9 Chronic obstructive pulmonary disease, unspecified; Z79.82 Long term (current) use of aspirin; Z87.891 Personal history of nicotine dependence
CPT/HCPCS: 36415; 80048; 85652; 96374; 99284; 70450; 85025; 86140; J1885

== ENCOUNTER 2023-10-21 18:19 | Emergency (ER) | payer MEDICARE, MEDICAID, SELFPAY ==
[2023-10-21 18:26] VITALS: BP 149/86; PULSE 72; RESP 16; TEMP 36.6; O2SAT 97
[2023-10-21 18:35] VITALS: BP 149/86; PULSE 72; RESP 16; TEMP 36.6; O2SAT 97
--- NOTE | 2023-10-21 18:37 | ED.GENADUL_ITS ---
HPI General Date/Time Provider Initiated Documentation: 10/21/23 18:25 . HPI Narrative: MDM This is an overall very well-appearing normothermic and not tachycardic 53-year-old male with symptoms of decreased energy chills nausea concern for the possibility of COVID for which he will undergo PCR given negative [id number] test. No nuchal rigidity to suggest meningitis. Not altered to suggest encephalitis. Patient does have a headache but has not been vomiting so my suspicion for subdural empyema is low. Given no nuchal rigidity I do not feel the patient requires a lumbar puncture. No neurological deficits so doubt CVA. No history of trauma so doubt intracranial hemorrhage. No chest pain to suggest ACS. No significant shortness of breath or hypoxia so will defer chest x-ray as my suspicion for pneumonia is exceedingly low. No pain out of proportion to suggest necrotizing soft tissue infection. No visual changes to suggest temporal arteritis. No history of generator exposure to suggest CO toxicity. No recent cervical spinal manipulation to suggest increased risk for cervical arterial dissection. I counseled on acetaminophen and ibuprofen dosing. Will call patient if his respiratory viral panel returned positive. 8:45 PM Respiratory viral PCR negative. Chronic conditions affecting the care of the patient: Paroxysmal atrial fibrillation hyperlipidemia TOVA COPD History obtained from an outside historian: N/A External record review: [facility] [place] EMR Medications: Acetaminophen Social determinants of health affecting disposition: Homelessness but reportedly lives in a hotel Management discussed with: N/A Treatment/interventions considered: N/A Response to therapies provided: N/A HPI This is a 53-year-old male arrived to the emergency department via private vehicle in the setting of request for a COVID test. Patient reports over the past several days he has felt more rundown with subjective chills and fever. He has not documented a temperature but he has had occasional hot and cold flashes. He feels that his symptoms are reminiscent of prior episodes of COVID. He has been nauseous and had several loose stools. He complains of an intermittent headache. He is taken no medications today. He is homeless and lives in a hotel. He lives alone. He has no sick contacts. He is unvaccinated denies any history of blood clots. He denies vomiting chest pain shortness of breath dysuria frequency abdominal pain. Exam General: Well-appearing in no acute distress speaking in complete sentences. Head: Normocephalic, atraumatic. Eye: Extraocular eye movements intact. No conjunctival injection. No scleral icterus. Ear, nose, mouth, throat: Grossly normal inspection. Normal voice, handling secretions normally. Neck: Trachea midline. Cardiovascular: Well-perfused distal extremities. Regular rate and rhythm. Respiratory: Nonlabored respiration. Clear lungs bilaterally. Gastrointestinal: Nondistended abdomen. Musculoskeletal: No edema. Moving all 4 extremities spontaneously. Skin: Normal for age and race, grossly normal temperature and turgor. No acute rash. Neurologic: Alert and appropriate, no apparent acute deficits. Psychiatric: Mood and manner are appropriate. Grooming and personal hygiene are appropriate. Related Data Home Medications Medication Instructions Recorded Confirmed albuterol sulfate 90 mcg/actuation 2 puff inhalation Q4H PRN PRN 08/04/20 10/21/23 aerosol inhaler (Ventolin HFA) aspirin 81 mg tablet,delayed 81 mg PO DAILY 08/04/20 10/21/23 release (Colleen Low Dose Aspirin) budesonide-formoterol HFA 160 2 puff inhalation BID 08/04/20 10/21/23 mcg-4.5 mcg/actuation aerosol inhaler (Symbicort) cyclosporine 0.05 % eye drops in a 1 drp ophthalmic (eye) BID 08/04/20 10/21/23 dropperette (Restasis) nitroglycerin 0.4 mg sublingual 0.4 mg sublingual PRN PRN 08/04/20 10/21/23 tablet cholecalciferol (vitamin D3) 25 25 mcg PO DAILY 10/27/22 10/21/23 mcg (1,000 unit) capsule (Vitamin D3) citalopram 10 mg tablet 10 mg PO DAILY 10/27/22 10/21/23 diltiazem HCl 240 mg capsule,24 240 mg PO DAILY 10/27/22 10/21/23 hr,extended release fenofibrate micronized 67 mg 67 mg PO DAILY 10/27/22 10/21/23 capsule trazodone 50 mg tablet 50 mg PO DAILY 04/10/23 10/21/23 amlodipine 2.5 mg tablet 2.5 mg PO DAILY 07/17/23 10/21/23 bupropion HCl 150 mg 24 hr tablet, 150 mg PO DAILY 07/17/23 10/21/23 extended release famotidine 40 mg tablet 40 mg PO DAILY 07/17/23 10/21/23 Allergies Allergy/AdvReac Type Severity Reaction Status Date / Time sulfamethoxazole Allergy Severe Anaphylaxsi Unverified 10/21/23 18:23 [From Bactrim] s trimethoprim [From Bactrim] Allergy Severe Anaphylaxsi Unverified 10/21/23 18:23 s General Stated Complaint: RespSymp POLA: 4 Course Vital Signs Vital signs: Vital Signs Temperature 36.6 C 10/21/23 18:26 Pulse 72 10/21/23 18:26 Respiratory Rate 16 10/21/23 18:26 Blood Pressure 149/86 H 10/21/23 18:26 Pulse Oximetry 97 10/21/23 18:26 Temperature 36.6 C 10/21/23 18:35 Temperature Source Skin 10/21/23 18:35 Pulse 72 10/21/23 18:35 Respiratory Rate 16 10/21/23 18:35 Respiratory Effort Non-Labored 10/21/23 18:29 Blood Pressure 149/86 H 10/21/23 18:35 Blood Pressure Position Sitting 10/21/23 18:35 Pulse Oximetry 97 10/21/23 18:35 Pain Level 2 10/21/23 18:35 Medical Decision Making Quality:SDOH Health Related Social Needs: No Data to Display PFSH All Active Problems (Updated 10/21/23 @ 19:25 by Yuri Yo MD) Decreased energy (Acute) Headache (Acute) Raynaud disease (Acute) Paroxysmal atrial fibrillation (Acute) TOVA (obstructive sleep apnea) (Chronic) Illiteracy (Acute) HLD (hyperlipidemia) (Acute) History of smoking (Acute) COPD (chronic obstructive pulmonary disease) (Chronic) Depression (Chronic) GERD (gastroesophageal reflux disease) (Chronic) ADHD (Acute) Asthma (Chronic) COVID-19 (Acute) Dermatitis (Acute) Chest pain (Acute) Medical History Atrial fibrillation Hx of hyperlipidemia HTN (hypertension) Surgical History Hx of lithotripsy Social History Smoking/Tobacco Use Status: Former Tobacco Use Quit Date: 09/10/22 Smoking risk assessment performed?: Yes Alcohol Intake: never Drug use: Never Substance use type: does not use Housing: apartment Do you feel safe at home: Yes Do you feel safe in your relationship?: Yes Discharge Plan Disposition Patient Disposition: Home Discharge Details Clinical Impression: Decreased energy Primary Care Provider: Radha Johnson ED Provider: Yuri Yo Home Meds and New Rx's Prescriptions: Continued amlodipine 2.5 mg tablet 2.5 mg PO DAILY Patient Comments: 07/17/23 Per PCP med list RH bupropion HCl 150 mg tablet extended release 24 hr 150 mg PO DAILY Patient Comments: 07/17/23 Per PCP med list RH famotidine 40 mg tablet 40 mg PO DAILY Patient Comments: 07/17/23 Per PCP med list RH trazodone 50 mg tablet 50 mg PO DAILY aspirin [Colleen Low Dose Aspirin] 81 mg Tablet,Delayed Release (Dr/Ec) 81 mg PO DAILY nitroglycerin 0.4 mg Tablet, Sublingual 0.4 mg sublingual PRN PRN albuterol sulfate [Ventolin HFA] 90 mcg/actuation Hfa Aerosol Inhaler 2 puff INHALATION Q4H PRN PRN cyclosporine [Restasis] 0.05 % Dropperette 1 drp ophthalmic (eye) BID budesonide-formoterol [Symbicort] 160-4.5 mcg/actuation Hfa Aerosol Inhaler 2 puff INHALATION BID citalopram 10 mg Tablet 10 mg PO DAILY Rx Instructions: with a 40 mg tablet diltiazem HCl 240 mg Capsule,Extended Release 24 Hr 240 mg PO DAILY fenofibrate micronized 67 mg Capsule 67 mg PO DAILY cholecalciferol (vitamin D3) [Vitamin D3] 25 mcg (1,000 unit) Capsule 25 mcg PO DAILY Discharge Instructions Additional Instructions: You were seen in the emergency department for your decreased energy. A COVID PCR test has been sent. You will receive a call back if the results are positive. If you do not receive a call back if you do not have COVID but you likely have some other viral infection. I discussed, please return to the emergency department if you develop difficulty breathing cannot eat or drink as result of nausea or vomiting or if you develop any chest pain. Otherwise please follow-up with your primary care provider next week. Discharge Data Discharge Date/Time-TO BE ENTERED AT DEPARTURE: 10/21/23 19:45
[2023-10-21] MEDS: Acetaminophen 500 MG TAB 1000 MG PO (19:40)
[2023-10-21 20:21] LABS: COVID-19 PCR Negative (Negative); Influenza A PCR Negative (Negative); Influenza B PCR Negative (Negative); RSV PCR Negative (Negative)
[2023-10-21 20:22] LABS: Source Nasopharynx
== END 2023-10-21 19:45 | disposition home or self-care (01) ==
PROVIDERS: Emergency Provider Emergency Medicine; PCP Physician Assistant Medical
DX: R50.9 Fever, unspecified (principal); R53.83 Other fatigue; I48.0 Paroxysmal atrial fibrillation; I10 Essential (primary) hypertension; E78.5 Hyperlipidemia, unspecified; J44.9 Chronic obstructive pulmonary disease, unspecified; Z79.82 Long term (current) use of aspirin; Z87.891 Personal history of nicotine dependence
CPT/HCPCS: 87426; 87637; 99283

== ENCOUNTER → 2024-07-15 08:48 | Outpatient (BNVA) | payer MEDICARE, MEDICAID, SELFPAY | PROVIDERS: PCP Physician Assistant Medical; Referring Provider Physician Assistant Medical; Visit Provider Physical Therapy Assistant | DX: Z12.11 Encounter for screening for malignant neoplasm of colon (principal); I48.0 Paroxysmal atrial fibrillation; J44.9 Chronic obstructive pulmonary disease, unspecified; Z86.0100 Personal history of colon polyps, unspecified; Z80.0 Family history of malignant neoplasm of digestive organs ==

== ENCOUNTER 2024-08-27 06:50 | Day surgery (SDC) | payer MEDICARE, MEDICAID, SELFPAY ==
[2024-08-27 07:10] VITALS: BP 128/81; PULSE 77; RESP 16; TEMP 36.5; O2SAT 98
--- NOTE | 2024-08-27 07:33 | W.ANESPRE ---
General Info Date of Service Date Performed: 08/27/24 Height: 5 ft 4 in Weight: 72.8 kg Body Mass Index (BMI): 27.5 Surgical Procedure: Operation Date: 08/27/24 08:50 Proposed Procedure Side Surgeon zeferino Garcia MD Meds Allergies and Home Medications Allergies Allergy/AdvReac Type Severity Reaction Status Date / Time sulfamethoxazole (From Allergy Severe Anaphylaxsi Verified 08/27/24 07:18 Bactrim) s trimethoprim (From Bactrim) Allergy Severe Anaphylaxsi Verified 08/27/24 07:18 s Home Medication ?Medication ?Instructions ?Recorded albuterol sulfate 90 mcg/actuation 2 puff inhalation Q4H PRN PRN 08/04/20 aerosol inhaler (Ventolin HFA) aspirin 81 mg tablet,delayed 81 mg PO DAILY 08/04/20 release (Colleen Low Dose Aspirin) budesonide-formoterol HFA 160 2 puff inhalation BID 08/04/20 mcg-4.5 mcg/actuation aerosol inhaler (Symbicort) cyclosporine 0.05 % eye drops in a 1 drp ophthalmic (eye) BID 08/04/20 dropperette (Restasis) nitroglycerin 0.4 mg sublingual 0.4 mg sublingual PRN PRN 08/04/20 tablet citalopram 10 mg tablet 10 mg PO DAILY 10/27/22 diltiazem HCl 240 mg capsule,24 240 mg PO DAILY 10/27/22 hr,extended release amlodipine 2.5 mg tablet 2.5 mg PO DAILY 07/17/23 bupropion HCl 150 mg 24 hr tablet, 150 mg PO DAILY 07/17/23 extended release famotidine 40 mg tablet 40 mg PO DAILY 07/17/23 simvastatin 10 mg tablet 10 mg PO DAILY 07/15/24 trazodone 50 mg tablet 100 mg PO DAILY 07/15/24 Current Visit Medications: Current Medications Generic Name Dose Route Start Last Admin Trade Name Freq PRN Reason Stop Dose Admin Ringer's Solution 1,000 mls @ 80 mls/hr 08/27/24 06:00 IV 08/27/24 23:59 INFUSION YESY IV Miscellaneous Supplies 1 each 08/27/24 06:00 Iv Access IV 08/27/24 23:59 DIRECTED YESY Sodium Chloride 0 ml 08/27/24 06:00 Normal Saline Flush 10 Ml Syr IV 12/03/24 23:59 PRN PRN Sodium Chloride 0 ml 08/27/24 06:00 Normal Saline 10 Ml Vial IJ 08/27/24 23:59 DIRECTED PRN Sterile Water 0 ml 08/27/24 06:00 Water,Injection,Sterile 10 Ml Vial IJ 08/27/24 23:59 DIRECTED PRN PFSH Active Problems Active Problems: Problem Status Onset Code Encounter for screening colonoscopy Acute Z12.11 Raynaud disease Acute I73.00 Paroxysmal atrial fibrillation Acute I48.0 TOVA (obstructive sleep apnea) Chronic G47.33 Illiteracy Acute Z55.0 HLD (hyperlipidemia) Acute E78.5 History of smoking Acute Z87.891 COPD (chronic obstructive pulmonary disease) Chronic J44.9 Depression Chronic F32.A GERD (gastroesophageal reflux disease) Chronic K21.9 ADHD Acute F90.9 Asthma Chronic J45.909 COVID-19 Acute U07.1 Dermatitis Acute L30.9 Chest pain Acute R07.9 Medical History Medical History Atrial fibrillation Hx of hyperlipidemia HTN (hypertension) Medical History Comments:: Per pt. is illiterate: consents are read to patient he is able to sign his name Surgical History Surgical History Hx of lithotripsy Tobacco Smoking/Tobacco Use Status: Former Tobacco Use Alcohol Alcohol Intake: never Substance Use Substance use: Never Substance use type: does not use Vital Signs and Lab Results Vital Signs Most Recent Vital Signs in EMR: Most Recent Vital Signs Temp Pulse Resp BP Pulse Ox 36.5 C 77 16 128/81 98 08/27/24 07:10 08/27/24 07:10 08/27/24 07:10 08/27/24 07:10 08/27/24 07:10 Lab Results Blood Type / Crossmatch: No Data to Display Complete Blood Count: No Data to Display Complete Metabolic Panel: No Data to Display Liver Function Panel: No Data to Display Coagulation Panel: No Data to Display Cardiac Panel: No Data to Display Arterial Blood Gas: No Data to Display Venous Blood Gas: No Data to Display Pancreas Panel: No Data to Display Thyroid Panel: No Data to Display Infectious Disease: No Data to Display Blood Cultures: No Data to Display Toxicology Panel: No Data to Display Imaging and Studies Imaging and Studies Study information below may be from another EMR and interpreted by another provider. Please see original notes in EMR for more complete details. EKG Summary: 07/17:Conclusion Sinus rhythm...normal P axis, V-rate 50- 99 Atrial premature complexes...SV complexes w/ short R-R intvls Stress Test Summary: 01/15:MPI Conclusion Normal myocardial perfusion without evidence of ischemia or prior infarction EF is 67%, wall motion is normal Echocardiogram Summary: 07/17:Indications: Atherosclerotic heart disease, wo angina pectoris Other Information Study Quality: Adequate Conclusion Normal left ventricular wall thickness and chamber size. Ejection fraction is 60%. Wall motion is normal Normal right ventricular size and systolic function Both atria are normal in size There is no structural or hemodynamically significant valvular disease Right ventricular systolic pressure could not be estimated Anesthesia Assessment and Plan Anesthesia History Personal History: No History of Anesthesia Complications Family History: Family History Unknown Exercise Tolerance Exercise Tolerance: Metabolic Equivalents>4 Pertinent Negatives Pertinent Negatives: No Symptoms of GERD Cardiac & Pulmonary Exam Cardiac Exam: Normal S1/S2 Heart Sounds Pulmonary Exam: Clear Bilateral Breath Sounds Implantable Cardiac Device Does patient have a Pacemaker or an ICD?: No Airway Exam Known Difficult Airway: No Mallampati Class: 2 Mouth Opening: Normal (> 3cm) Thyromental Distance: Less than 3 cm Neck Range of Motion: Full ROM Neck Circumference: Normal Teeth Condition: Removable Dentures/Plates Upper ASA Classification ASA Score: ASA 2 Emergency Case?: No NPO Status NPO Status: NPO Clears >2 hours, Solids >8 hours Anesthesia Plan Resuscitation Status: Full Code Anesthesia Technique: General Anesthesia Airway Planned: Natural Airway Monitors Used: Standard Monitors
[2024-08-27 07:36] VITALS: BMI 27.5
[2024-08-27] MEDS: Normal Saline Flush 10 ML SYR IV (07:38)
--- NOTE | 2024-08-27 09:21 | W.SURGCON ---
Date of service: 08/27/24 Time of Service: 09:21 Assessment and Plan Assessment and plan (1) Encounter for screening colonoscopy: Status: Acute Assessment and plan: 54-year-old man due for surveillance colonoscopy in setting of family history and personal history of polyps. Overall plan: Colonoscopy History of Present Illness Narrative: 54-year-old man has a family history of colon cancer in his mother. He himself has had adenomatous polyps removed. He is due for surveillance colonoscopy. He has no symptoms. PFSH All Active Problems Encounter for screening colonoscopy (Acute) Raynaud disease (Acute) Paroxysmal atrial fibrillation (Acute) TOVA (obstructive sleep apnea) (Chronic) Illiteracy (Acute) HLD (hyperlipidemia) (Acute) History of smoking (Acute) COPD (chronic obstructive pulmonary disease) (Chronic) Depression (Chronic) GERD (gastroesophageal reflux disease) (Chronic) ADHD (Acute) Asthma (Chronic) COVID-19 (Acute) Dermatitis (Acute) Chest pain (Acute) Medical History Atrial fibrillation Hx of hyperlipidemia HTN (hypertension) Surgical History Hx of lithotripsy Social History Smoking/Tobacco Use Status: Former Tobacco Use Quit Date: 09/10/22 Smoking risk assessment performed?: Yes Alcohol Intake: never Drug use: Never Substance use type: does not use Housing: other Do you feel safe at home: Yes Do you feel safe in your relationship?: Yes Exam Narrative Exam Narrative: Gen: Non-toxic, comfortable and interactive Neuro: Alert and oriented x3 Psych: Good mood and affect. Good insight and understanding into condition. Chest: Non-labored breathing, no wheezing, no visible shortness of breath. Heart: Regular Results Last Vital Signs Temp 97.7 F 08/27/24 07:10 Pulse 77 08/27/24 07:10 Resp 16 08/27/24 07:10 BP 128/81 08/27/24 07:10 Pulse Ox 98 08/27/24 07:10
[2024-08-27 09:52] VITALS: BP 115/73; PULSE 62; RESP 16; TEMP 36.3; O2SAT 96
--- NOTE | 2024-08-27 09:52 | W.COLOREPORT ---
Date of service: 08/27/24 Time of Service: 09:52 Colonoscopy Report Procedure Description: PROCEDURES PERFORMED: 1. Colonoscopy PREOPERATIVE DIAGNOSIS: Surveillance colonoscopy, family history colon cancer POSTOPERATIVE DIAGNOSIS: Mild sigmoid diverticulosis, poor prep SURGEON: Osiris Garcia MD INDICATION FOR PROCEDURE: the patient is a 54-year-old man who has a family history of colon cancer in his mother. He himself has had adenomatous polyps in the past. He has no symptoms; due for surveillance. FINDINGS: Complete colonoscopy was performed however the prep was quite poor throughout the entire colon. We were able to reach the cecum reliably and we can reliably rule OUT colon cancer or large tumors. Medium?sized or even large polyps or other precancerous lesions could have been missed because of the poor prep. There is diverticular disease in the sigmoid colon only. SURVEILLANCE interval/FOLLOW-UP: I recommend repeating in 3 years. An extended prep should be performed next time. SPECIMENS: None EBL: Minimal COMPLICATIONS: None QUALITY of prep: Quite poor throughout Procedure in detail: The patient gave written consent and was in agreement with the indications, the potential risks as well as the benefits of the procedure. They were taken to the endoscopy suite and laid in the left lateral decubitus position. A timeout was performed and anesthesia was administered which was tolerated well. I started the procedure. Digital rectal and visual examination was performed and grossly within normal limits. A well-lubricated flexible colonoscope was then introduced and passed without any notable difficulty all the way to the cecum identified by the ileocecal valve and the appendiceal orifice. The scope was then slowly withdrawn with the above-noted findings. The patient tolerated the procedure well and was taken to the PACU in hemodynamically stable condition.
--- NOTE | 2024-08-27 09:54 | W.PM.DSUDISC ---
Date of service: 08/27/24 Discharge Plan Disposition Patient Disposition: Home Condition: Good Discharge Details Attending Provider: Davidson Garcia Primary Care Provider: Radha Johnson Home Meds and New Rx's Prescriptions: No Action amlodipine 2.5 mg tablet 2.5 mg PO DAILY Patient Comments: 07/17/23 Per PCP med list RH bupropion HCl 150 mg tablet extended release 24 hr 150 mg PO DAILY Patient Comments: 07/17/23 Per PCP med list RH famotidine 40 mg tablet 40 mg PO DAILY Patient Comments: 07/17/23 Per PCP med list RH simvastatin 10 mg tablet 10 mg PO DAILY trazodone 50 mg tablet 100 mg PO DAILY aspirin [Colleen Low Dose Aspirin] 81 mg Tablet,Delayed Release (Dr/Ec) 81 mg PO DAILY nitroglycerin 0.4 mg Tablet, Sublingual 0.4 mg sublingual PRN PRN albuterol sulfate [Ventolin HFA] 90 mcg/actuation Hfa Aerosol Inhaler 2 puff INHALATION Q4H PRN PRN cyclosporine [Restasis] 0.05 % Dropperette 1 drp ophthalmic (eye) BID budesonide-formoterol [Symbicort] 160-4.5 mcg/actuation Hfa Aerosol Inhaler 2 puff INHALATION BID citalopram 10 mg Tablet 10 mg PO DAILY Rx Instructions: with a 40 mg tablet diltiazem HCl 240 mg Capsule,Extended Release 24 Hr 240 mg PO DAILY Discharge Instructions Stand Alone Forms: Anesthesia Discharge Inst., Colonoscopy Post Instructions, Abdoulaye Astudillo (DSU) Activity:: Activity as Tolerated Diet:: As Tolerated DS: Diagnosis Discharge Diagnosis (1) Encounter for screening colonoscopy: Status: Acute Asessment and Plan: FINDINGS: No colon cancer was seen today. However, the prep for this colonoscopy was quite poor and visualization was impaired. Polyps could have easily been missed. Because of this I recommend having another colonoscopy in 3 years. You should do an EXTENDED PREP next time to ensure that your colon is completely cleaned out.
[2024-08-27 10:17] VITALS: BP 131/79; PULSE 71; RESP 16; TEMP 36.3; O2SAT 98
--- NOTE | 2024-08-27 10:27 | W.ANESPOSTOP ---
Postoperative Evaluation Date, Time and Location Date Performed: 08/27/24 Time Performed: 10:28 Patient Location: Day Surgery Unit Vital Signs Most Recent Imported Vital Signs: Most Recent Vital Signs Temp Pulse Resp BP Pulse Ox 36.3 C L 71 16 131/79 98 08/27/24 10:17 08/27/24 10:17 08/27/24 10:17 08/27/24 10:17 08/27/24 10:17 Pain Score Most Recent Pain Score: Most Recent Pain Score Pain Level 0 08/27/24 10:17 Assessment Mental Status: Awake (Alert & Oriented to Patient Baseline) Airway and Respiratory Function: Patent airway with normal (patient baseline) respiratory exam Cardiovascular Function: Hemodynamically Stable Hydration Status: Adequately Hydrated Nausea & Vomiting: No Nausea or Vomiting Pain: Pt. Denies Any Pain Peripheral Nerve Block: Patient did not receive a nerve block
== END 2024-08-27 10:53 | disposition home or self-care (01) ==
PROVIDERS: PCP Physician Assistant Medical; Visit Provider Student in an Organized Health Care Education/Training Program
PROC: 0DJD8ZZ Inspection of Lower Intestinal Tract, Via Natural or Artificial Opening Endoscopic (ICD-10-PCS; CPT 45378; principal; 2024-08-27 08:45)
DX: Z12.11 Encounter for screening for malignant neoplasm of colon (principal); K57.30 Diverticulosis of large intestine without perforation or abscess without bleeding
CPT/HCPCS: G0105; 00123; J2704

== ENCOUNTER 2024-11-12 13:42 | Outpatient (CLI) | payer MEDICARE, MEDICAID, SELFPAY ==
--- NOTE | 2024-11-12 13:45 | RT.EKG_ITS ---
APPROVED REPORT Exam: Resting ECG Reason for Exam: baseline Patient Location: O HR:71 bpm ECG Measurements Heart Rate 71 AXIS OH 199 P 2 QRSd 95 QRS 52 QT 364 T 23 QTc 396 Conclusion Sinus rhythm...normal P axis, V-rate 50- 99 , early transition...QRS area>0 in V2 Baseline wander in lead(s) V1
== END 2024-11-12 13:43 | disposition home or self-care (01) ==
LOC: DI.CARD 13:48
PROVIDERS: PCP Physician Assistant Medical; Referring Provider Physician Assistant Medical; Visit Provider Internal Medicine Cardiovascular Disease
DX: I48.0 Paroxysmal atrial fibrillation (principal)
CPT/HCPCS: 93010

== ENCOUNTER → 2024-11-12 13:42 | Outpatient (BNVA) | payer MEDICARE, MEDICAID, SELFPAY | PROVIDERS: PCP Physician Assistant Medical; Referring Provider Physician Assistant Medical; Visit Provider Internal Medicine Cardiovascular Disease | DX: R07.89 Other chest pain (principal); I48.0 Paroxysmal atrial fibrillation | CPT/HCPCS: 93005; 99214 ==

== ENCOUNTER 2025-05-02 01:07 | Outpatient (CLI) | payer MEDICARE, MEDICAID, SELFPAY ==
[2025-05-02 12:40] LABS: Hemoglobin A1C 5.1 % (<5.7)
[2025-05-02 12:42] LABS: ALT 37 U/L (16-63); AST 27 U/L (15-37); Albumin 4.3 g/dL (3.4-5.0); Alkaline Phosphatase 49 U/L (46-116); Anion Gap 8.3 mmol/L (3-11); BUN 11 mg/dL (7-18); Bilirubin, Total 0.6 mg/dL (0.2-1.0); CO2 29.7 mmol/L (21.0-32.0); Calcium 9.5 mg/dL (8.5-10.1); Calculated LDL 119 mg/dL (<100); Chloride 106 mmol/L (98-107); Cholesterol 183 mg/dL (<200); Estimated GFR 88.88 (mL/min/1.73m2); Glucose 91 mg/dL (74-106); HDL Cholesterol 46 mg/dL (>or=40); Potassium 4.5 mmol/L (3.5-5.1); Sodium 144 mmol/L (136-145); Total Protein 7.1 g/dL (6.4-8.2); Triglyceride 90 mg/dL (<150)
[2025-05-02 19:10] LABS: PSA, Screening 1.9 ng/mL (<=3.5)
== END 2025-05-02 01:08 | disposition home or self-care (01) ==
LOC: LOS 01:07
PROVIDERS: PCP Nurse Practitioner Family; Referring Provider Nurse Practitioner Family; Visit Provider Nurse Practitioner Family
DX: Z13.1 Encounter for screening for diabetes mellitus (principal); Z13.6 Encounter for screening for cardiovascular disorders; I10 Essential (primary) hypertension; Z12.5 Encounter for screening for malignant neoplasm of prostate
CPT/HCPCS: 36415; 80053; 80061; 84153; 83036

== ENCOUNTER → 2025-05-15 12:06 | Outpatient (BNVA) | payer MEDICARE, MEDICAID, SELFPAY | PROVIDERS: PCP Nurse Practitioner Family; Referring Provider Physician Assistant Medical; Visit Provider Internal Medicine Cardiovascular Disease | DX: I48.0 Paroxysmal atrial fibrillation (principal); R07.89 Other chest pain | CPT/HCPCS: 99213 ==

== ENCOUNTER 2025-06-03 18:11 | Emergency (ER) | payer MEDICARE, MEDICAID, SELFPAY ==
[2025-06-03 18:33] VITALS: BP 123/77; PULSE 69; RESP 18; TEMP 37.2; O2SAT 95
[2025-06-03 18:35] VITALS: BP 123/77; PULSE 69; RESP 18; TEMP 37.2; O2SAT 95
[2025-06-03 21:10] VITALS: BP 123/82; PULSE 64; RESP 18; TEMP 35.9; O2SAT 98
--- NOTE | 2025-06-03 21:16 | DI.RAD_ITS ---
Exam(s) XR CHEST 2V PA LATERAL EXAM: XR CHEST 2V PA LATERAL CLINICAL HISTORY: shortness of breath TECHNIQUE: 2D digital imaging was performed. Two views. COMPARISON: CR,XR XR CHEST 2V PA LATERAL from 06/20/2023 FINDINGS: HEART: Normal size. Aorta: Not dilated. PULMONARY VASCULATURE: Normal. MEDIASTINUM: Unremarkable. LUNGS: Question of mildly increased densities in the right upper lobe versus overlying markings peer PLEURAL SPACE: No pleural effusion or pneumothorax. BONE:Unremarkable for age. SOFT TISSUES: Unremarkable. IMPRESSION: Question of right upper lobe infiltrate. The preliminary [facility] report was reviewed. DATA REPOSITORY: RADIATION DOSE DELIVERED:
[2025-06-03] MEDS: Doxycycline Hyclate 100 MG, 2 CAPS/BTL PO (22:09)
[2025-06-03] MEDS: Amox. 875/Clav. 125, 2 TABS/BTL 1 TAB PO (22:09)
[2025-06-03] MEDS: predniSONE 20 MG TAB 40 MG PO (22:09)
--- NOTE | 2025-06-03 23:04 | DI.VRAD_ITS ---
PROCEDURE INFORMATION: Exam: XR Chest Exam date and time: 06/03/2025 9:31 PM Age: 55 years old Clinical indication: Shortness of breath TECHNIQUE: Imaging protocol: Radiologic exam of the chest. Views: 2 views. COMPARISON: CR XR CHEST 2V PA LATERAL 06/20/2023 6:10 PM FINDINGS: Lungs: Ill-defined right upper lobe pulmonary opacities/infiltrate possibly representing a developing pneumonia. Pleural spaces: Unremarkable. No pleural effusion. No pneumothorax. Heart/Mediastinum: Unremarkable. No cardiomegaly. Bones/joints: Unremarkable. IMPRESSION: Findings suggesting a developing right upper lobe pneumonia. Continued follow-up to resolution is recommended. Dictated and Authenticated by: Ronnie Vega MD. Orderin Saida Srivastava MD
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
== END 2025-06-03 22:13 | disposition home or self-care (01) ==
PROVIDERS: Emergency Provider Physician Assistant; PCP Nurse Practitioner Family
DX: J18.9 Pneumonia, unspecified organism (principal)
CPT/HCPCS: 99283; 99284; 87428; 71046; J7512

== ENCOUNTER 2025-07-09 18:34 | Emergency (ER) | payer MEDICARE, MEDICAID, SELFPAY ==
--- NOTE | 2025-07-09 18:30 | RT.EKG_ITS ---
APPROVED REPORT Exam: Resting ECG Reason for Exam: Chest pain Patient Location: E HR:71 bpm ECG Measurements Heart Rate 71 AXIS WA 216 P 13 QRSd 68 QRS 46 QT 376 T 28 QTc 408 Conclusion Sinus rhythm...normal P axis, V-rate 60- 99 Prolonged WA interval...WA >210, V-rate 50- [address] elevation, inferior leads...ST >0.06mV, II III aVF
[2025-07-09 18:41] VITALS: BP 130/75; PULSE 73; RESP 20; TEMP 36.5; O2SAT 95
--- NOTE | 2025-07-09 18:45 | DI.RAD_ITS ---
Exam(s) XR CHEST 2V PA LATERAL EXAM: XR CHEST 2V PA LATERAL CLINICAL HISTORY: chest pain, dyspnea TECHNIQUE: 2D digital imaging was performed. Two views. COMPARISON: CR,XR XR CHEST 2V PA LATERAL from 06/20/2023 CR,XR XR CHEST 2V PA LATERAL from 06/03/2025 FINDINGS: HEART: Normal size. Aorta: Not dilated. PULMONARY VASCULATURE: Normal. MEDIASTINUM: Unremarkable. LUNGS: Mildly increased densities are again noted in the right upper lobe. Findings could represent persistent infiltrate versus scarring. PLEURAL SPACE: No pleural effusion or pneumothorax. BONE:Unremarkable for age. SOFT TISSUES: Unremarkable. IMPRESSION: Question persistent in upper right upper lobe infiltrate versus scarring. The preliminary [facility] report was reviewed. DATA REPOSITORY: RADIATION DOSE DELIVERED:
[2025-07-09 19:02] LABS: Abs Immature Grans 0.03 10^3/uL (0.0-0.06); HCT 35.9 % (40.0-50.0); HGB 12.8 g/dL (13.5-17.5); Immature Grans % 0.3 %; MCH 31.1 pg (27.0-33.0); MCHC 35.7 % (32.0-36.0); MCV 87 fL (80-95); MPV 9.7 fL (8.0-11.0); Platelet Count 251 10^3/uL (130-400); RBC 4.12 10^6/uL (4.36-5.78); RDW 11.9 % (11.8-14.1); RDW-SD 37.7 fL; WBC 8.61 10^3/uL (4.4-10.8)
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
[2025-07-09 19:17] LABS: INR 1.1 (0.9-1.1); PTT Activated 25.4 sec (20.6-30.2); Prothrombin Time 10.7 sec (9.1-11.1)
[2025-07-09 19:24] LABS: ALT 24 U/L (16-63); AST 19 U/L (15-37); Albumin 4.0 g/dL (3.4-5.0); Alkaline Phosphatase 82 U/L (46-116); Anion Gap 9.1 mmol/L (3-11); BUN 17 mg/dL (7-18); Bilirubin, Total 0.4 mg/dL (0.2-1.0); CO2 28.9 mmol/L (21.0-32.0); Calcium 9.4 mg/dL (8.5-10.1); Chloride 105 mmol/L (98-107); Estimated GFR 78.79 (mL/min/1.73m2); Glucose 130 mg/dL (74-106); Lipase 26 U/L (<78); Magnesium 2.0 mg/dL (1.8-2.4); Potassium 3.9 mmol/L (3.5-5.1); Sodium 143 mmol/L (136-145); Total Protein 7.0 g/dL (6.4-8.2); Troponin I 10 ng/L (<or=76)
[2025-07-09 19:27] LABS: NT-proBNP 16 pg/mL (<300)
[2025-07-09 19:29] LABS: D-Dimer 276 ng/mlFEU (<500)
--- NOTE | 2025-07-09 20:14 | NUR.NOTE ---
RN attempted to draw 2nd trop from IV. and did not get blood. RN attempted to get trop from [facility]. PT became irate and refused 2nd trop. ED MD notified. Nursing Note:
--- NOTE | 2025-07-09 20:18 | DI.VRAD_ITS ---
PROCEDURE INFORMATION: Exam: XR Chest Exam date and time: 07/09/2025 19:13 Age: 55 years old Clinical indication: Other: Chest pain, dyspnea TECHNIQUE: Imaging protocol: Radiologic exam of the chest. Views: 2 views. COMPARISON: CR XR CHEST 2V PA LATERAL 06/03/2025 21:31 FINDINGS: Lungs: Minimal nodular densities in the right suprahilar region are stable since recent imaging. No new airspace consolidation. Pleural spaces: No pleural effusion. No pneumothorax. Heart/Mediastinum: No cardiomegaly. Bones/joints: No acute fracture. IMPRESSION: Minimal nodular densities in the right suprahilar region are stable since recent imaging. Suggests a minor bronchitis or other endobronchial process. Consider follow-up after treatment. Dictated and Authenticated by: Inge Fuller MD. Orderin Michael Encinas MD
[2025-07-09 20:28] VITALS: RESP 18
== END 2025-07-09 20:29 | disposition left against medical advice (07) ==
PROVIDERS: Emergency Provider Emergency Medicine; PCP Nurse Practitioner Family
DX: R07.9 Chest pain, unspecified (principal); R06.02 Shortness of breath; I48.91 Unspecified atrial fibrillation; Z59.10 Inadequate housing, unspecified; Z59.41 Food insecurity
CPT/HCPCS: 99284; 99283; 36415; 80053; 83690; 93005; 71046; 83735; 83880; 84484; 85025; 85379; 85610; 85730; 93010

== ENCOUNTER 2025-07-22 02:30 | Outpatient (CLI) | payer MEDICARE, MEDICAID, SELFPAY ==
[2025-07-22] MEDS: Inhaler, Assist Device 1 EACH MC (10:31)
[2025-07-22] MEDS: Levalbuterol HFA 15 GM INH 4 PUFF IH (10:31)
--- NOTE | 2025-08-06 08:29 | W.PFT ---
Date of service: 07/22/25 Time of Service: 09:18 Pulmonary Function Test Result Indications: COPD / Asthma Impression 1. Good patient effort was noted. ATS standards for reproducibility were met. 2. FEV1:FVC ratio was slightly below predicted at 75%. Could be seen with mild obstruction or be a normal variant 3. Following the administration of a bronchodilator there was not response 4. TLC was normal. No evidence of restrictive lung disease 5. DLCO was normal indicating normal alveolar gas exchange
== END 2025-07-22 02:31 | disposition home or self-care (01) ==
LOC: RT 02:30
PROVIDERS: PCP Nurse Practitioner Family; Visit Provider Nurse Practitioner Family
DX: J44.9 Chronic obstructive pulmonary disease, unspecified (principal)
CPT/HCPCS: 94060; 94726; 94729

== ENCOUNTER 2025-07-23 01:31 | Outpatient (CLI) | payer MEDICARE, MEDICAID, SELFPAY ==
--- NOTE | 2025-07-23 08:30 | DI.CTLCSR_ITS ---
Exam(s) CT CHEST LUNG CANCER SCREEN EXAM: CT CHEST LUNG CANCER SCREEN CLINICAL HISTORY: Screening for lung cancer Z87.891 PERS HX NICOTINE DEPENDENCE TECHNIQUE: Imaging Protocol: Axial computed tomography images with coronal and sagittal reformatted images were created and reviewed. Lung Computer Aided Detection (CAD) was utilized. COMPARISON: CT CT CHEST PE CTA from 10/27/[address] CHEST/ABD/PEL W from 01/09/2023 CR,XR XR CHEST 2V PA LATERAL from 07/09/2025 FINDINGS: Tracheobronchial tree: Patent where visualized. No bronchiectasis. Pulmonary parenchyma: Moderate emphysematous changes are present in the lungs. No architectural distortion. Lung Nodules: There is a stable triangular perifissural nodule associated with the left major fissure. There is a stable 5 mm nodule in the right lower lobe (series 4, image 81). There are no new pulmonary nodules. Mediastinum and Emily: No dominant adenopathy or fluid collection. The esophagus is unremarkable. Thyroid gland: Unremarkable. Lymph nodes: Unremarkable. Pleura: No effusion or pneumothorax. Heart: The heart is not dilated. Mild coronary artery calcification is present. No pericardial effusion. Aorta: Thoracic aorta non-dilated.Mild atherosclerotic calcification is present. Upper abdomen: Unremarkable. Soft Tissues: Unremarkable. Bones: Within normal limits. IMPRESSION: Stable pulmonary nodules. No new pulmonary nodules. Lung RADS Cat 2 - Benign Appearance / Behavior: Nodules with a very low likelihood of becoming a clinically active cancer due to size or lack of growth Lung-RADS 1.0 CATEGORIES: Category 0 - Prior chest CT exam(s) being located for comparison. Category 1 - Annual screening in 12 months. No nodules or definitely benign nodules. Category 2 - Annual screening in 12 months. Benign appearance. Nodules with low likelihood of becoming active cancer. Category 3 - 6-month follow-up. Probably benign. Short-term follow-up suggested. Nodules with low likelihood of becoming active cancer. Category 4A - 3-month follow-up and CT/PET if >8 mm in size. Suspicious finding. Findings which require additional testing. Category 4B - Findings which require additional testing and tissue sampling. Suspicious finding. Category 4X - Category 3 or 4 nodules with additional features or imaging findings that increases the suspicion of malignancy. Modifier S- Potentially clinically significant finding. (Non lung cancer) RADIATION DOSE DELIVERED: 30.82mGy.cm Total DLP 30.82mGy.cmTotal DLP DATA REPOSITORY: All CT scans at this facility are submitted to the National Radiology Data Registry (NRDR) Dose Index Registry (DIR) with the [employer] ([employer]). RADIATION OPTIMIZATION: All CT scans at this facility use at least one of these dose optimization techniques: automated exposure control; mA and/or kV adjustment per patient size (includes targeted exams where dose is matched to clinical indication); or iterative reconstruction.
== END 2025-07-23 01:51 ==
LOC: DI 01:31
PROVIDERS: PCP Nurse Practitioner Family; Visit Provider Nurse Practitioner Family
DX: Z12.2 Encounter for screening for malignant neoplasm of respiratory organs (principal); Z87.891 Personal history of nicotine dependence
CPT/HCPCS: 71271